=== PATIENT | male | born 1955 | race Caucasian/White ===

== ENCOUNTER 2019-05-28 12:35 | Outpatient (CLI) | payer MEDICARE, OTHER, SELFPAY ==
--- NOTE | ~2019-05-28 | XR_ITS ---
XR lumbar spine 2-3V DATE: 05/28/2019 13:07 INDICATION: Lumbar back pain and radiculopathy TECHNIQUE: AP, lateral, coned lateral lumbosacral views COMPARISON: 05/02/2017 lumbar spine FINDINGS: Mild rotatory dextroscoliosis. Diffuse osteopenia. No fracture or bone destruction is evident. The included lower thoracic and lumbar pedicles are intac t. There is fusion at L5-S1. There is moderate degenerative disc disease at L1-2, L3-4 and L4-5, with re latively sparing of L2-3. Degenerative spurring of the lower thoracic spine. The sacroiliac joints are intact. Fusiform infrarenal abdominal aortic aneurysm. IMPRESSION: Mild rotatory dextroscoliosis Diffuse osteopenia Multilevel degenerative disc disease Fusion at L5-S1 Fusiform infrarenal abdominal aortic aneurysm Reviewed, dictated and finalized at location B. 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
--- NOTE | ~2019-05-28 | XR_ITS ---
XR cervical spine 4-5V DATE: 05/28/2019 13:07 INDICATION: Neck pain and radiculopathy TECHNIQUE: AP, open-mouth, lateral and swimmer views COMPARISON: 05/02/2017 cervical spine FINDINGS: Cervical curvature is intact on the lateral view. There is mild levoscoliosis of the cervic al and upper thoracic spine. Normal alignment of the cervical spine. No fracture or dislocation or lo cked facet or prevertebral soft tissue swelling. C1 and C2 are normally aligned and the odontoid proc ess is intact. There is uncovertebral joint spurring and apophyseal joint spurring throughout the cervical spine. There is moderate degenerative disc disease at C3-4, C4-5, C5-6 and C6-7. Impressions: Degenerative changes, since 05/02/2017 Reviewed, dictated and finalized at location B. R SPECIAL AGENT Impressions: Degenerative changes, since 05/02/2017
== END 2019-05-28 12:36 | disposition home or self-care (01) ==
LOC: ANHIMG 12:39
PROVIDERS: PCP Internal Medicine; Visit Provider Pain Medicine Interventional Pain Medicine
DX: M47.26 Other spondylosis with radiculopathy, lumbar region (principal); M47.27 Other spondylosis with radiculopathy, lumbosacral region; G89.4 Chronic pain syndrome
CPT/HCPCS: 72050; 72100

== ENCOUNTER → 2020-06-02 15:51 | Outpatient (CLI) | payer MEDICARE, SELFPAY ==
--- NOTE | ~2020-06-02 | XR_ITS ---
XR_CERV2-3V_CR DATE: 06/02/2020 17:13 INDICATION: Cervical radiculopathy TECHNIQUE: Standing AP, open-mouth and lateral views, swimmer's view COMPARISON: 05/02/2017 cervical spine FINDINGS: Diffuse osteopenia. The cervical vertebrae are normally aligned. C1 and C2 are normally aligned and the odontoid process is intact. No fracture or dislocation or locked facet or prevertebral soft tissue swelling is detecte d. There is moderate loss of interspace height at C5-6 and C6-7, with associated spurring, consistent wi th moderate to moderately severe degenerative disc disease. Degenerative changes noted at the apophyseal joints. IMPRESSION: Cervical spondylosis Reviewed, dictated and finalized at Location A. Reviewed, dictated and finalized at location A. 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
--- NOTE | ~2020-06-02 | XR_ITS ---
XR lumbar spine 2-3V DATE: 06/02/2020 17:13 INDICATION: Lumbar radiculopathy TECHNIQUE: AP, lateral, coned lateral lumbosacral views COMPARISON: May 28, 2019 lumbar spine FINDINGS: There is diffuse osteopenia. There is prominent degenerative spurring in the lower thoracic spine. There is mild dextro scoliosis of the lumbar spine. There is moderate degenerative disc disease at L1-2. There is mild degenerative disc disease at L3-4 and L4-5. There is fusion at the L5-S1 intervertebral disc space. No recent fracture or bone destruction. The lumbar pedicles are intact. There is minimal retrolisthesis at L3-4 and L4-5. The sacroiliac joints are intact. Approximately 3.7 cm infrarenal abdominal aortic aneurysm IMPRESSION: Osteopenia Mild dextro scoliosis of the lumbar spine Multilevel degenerative disc disease Mild retrolisthesis at L3-4 and L4-5 Reviewed, dictated and finalized at location A. [employer]IAISON
== END ==
PROVIDERS: PCP Internal Medicine; Visit Provider Pain Medicine Interventional Pain Medicine
DX: M85.88 Other specified disorders of bone density and structure, other site (principal); M41.9 Scoliosis, unspecified; M51.36 Other intervertebral disc degeneration, lumbar region; M47.22 Other spondylosis with radiculopathy, cervical region
CPT/HCPCS: 72040; 72100

== ENCOUNTER 2020-06-17 08:54 | Outpatient (CLI) | payer MEDICARE, SELFPAY ==
[2020-06-17 09:26] LABS: Basophils Percent Auto 0.5 % (0.2-1.2); Eosinophils Absolute Auto 0.2 K/mm3 (0-0.3); Eosinophils Percent Auto 2.4 % (0-4.4); Hematocrit 45.6 % (42.0-52.0); Hemoglobin 15.9 g/dL (14.0-18.0); Immature Granulocyte Absolute 0.03 K/mm3 (0.00-0.031); Immature Granulocyte Percent A 0.4 % (0-0.5); Lymphocytes Percent Auto 26.3 % (18.3-44.2); Mean Corpuscular HGB Conc 34.9 g/dl (32-36); Mean Corpuscular Hemoglobin 31.1 pg (26-34); Mean Corpuscular Volume 89.1 fl (80-100); Mean Platelet Volume 10.5 fl (7.4-10.4); Monocytes Absolute Auto 0.7 K/mm3 (0.1-0.6); Monocytes Percent Auto 8.1 % (2.6-8.5); Neutrophils Percent Auto 62.3 % (45.5-73.1); Platelet Count Result 345 k/mm3 (150-375); Red Blood Count 5.12 M/mm3 (4.6-6.20); Red Cell Distribution Width 13.1 % (11.5-14.5)
[2020-06-17 10:01] LABS: Alanine Aminotransferase 16 U/L (4-50); Albumin Level 4.3 g/dL (3.5-5.1); Alkaline Phosphatase 76 U/L (38-126); Anion Gap 6 mmol/L (8-16); Aspartate Amino Transferase 24 U/L (17-59); Bilirubin,Total 0.6 mg/dL (0.2-1.3); Blood Urea Nitrogen 18 mg/dL (9-20); Carbon Dioxide 27 mmol/L (22-30); Chloride 101 mmol/L (98-107); Cholesterol 135 mg/dL (0-200); Estimated Glomerular Filt Rate > 60; Glucose 102 mg/dL (75-110); HDL Direct 36 mg/dL; Magnesium 1.8 mg/dL (1.6-2.3); Potassium 4.3 mmol/L (3.4-5.0); Sodium 134 mmol/L (137-145); Triglycerides 83 mg/dL (<150)
[2020-06-17 10:12] LABS: LDL Cholesterol Direct 82 mg/dL
[2020-06-17 10:38] LABS: Prostate Specific Antigen 1.8 ng/mL (< OR = 4.0)
== END 2020-06-17 08:55 | disposition home or self-care (01) ==
PROVIDERS: PCP Internal Medicine; Visit Provider Nurse Practitioner
DX: I10 Essential (primary) hypertension (principal); R00.2 Palpitations; Z12.5 Encounter for screening for malignant neoplasm of prostate
CPT/HCPCS: 36415; 80053; 80061; 83735; 84153; 85025; G0103

== ENCOUNTER 2020-07-15 13:23 | Outpatient (CLI) | payer MEDICARE, SELFPAY ==
--- NOTE | ~2020-07-15 | CT_ITS ---
EXAMINATION: CT lung screening EXAM DATE: 07/15/2020 14:10 INDICATION: Tobacco use. TECHNIQUE: Spiral low dose CT of the chest without contrast. Axial, coronal and sagittal images were reviewed. The dose-length product (DLP) for this examination was 238.18 mGy-cm. The exposure was t ailored according to patient size (auto mA exposure control), and iterative reconstruction (ASIR) was used as additional dose reduction technique. There is no prior study for comparison. FINDINGS: There is mild bronchiectasis. There is mild emphysema. There is a 5 mm left lower lobe nod ule on image 85. Tracheobronchial tree is patent. Some borderline size mediastinal lymph nodes pro bably reactive. There are no pleural or pericardial effusions. There is no pneumothorax. Heart n ormal in size. There is moderate coronary arterial calcification, arterial sclerosis. There are 2 g allstones within moderately distended gallbladder. There is a right adrenal gland adenoma measuring 1 .4 cm. Small sclerotic focus in T9 most likely bone island given no other sclerotic foci. IMPRESSION: Lung-RADS category 2, benign appearance or behavior (<1% chance of malignancy); recommend continued LDCT screening in 1 year. Reviewed, dictated and finalized at location A.
== END 2020-07-15 13:24 | disposition home or self-care (01) ==
PROVIDERS: PCP Internal Medicine; Visit Provider Nurse Practitioner
DX: Z12.2 Encounter for screening for malignant neoplasm of respiratory organs (principal); Z87.891 Personal history of nicotine dependence
CPT/HCPCS: 71271

== ENCOUNTER 2020-12-10 00:30 | Day surgery (SDC) | payer MEDICARE, SELFPAY ==
[2020-12-09 14:14] VITALS: BMI 33.0
[2020-12-10] VITALS (19 sets, daily range): BP systolic 114–149; BP diastolic 66–94; PULSE 65–84; RESP 15–24; TEMP 35.8–37.1; O2SAT 94–100; BMI 32.4
[2020-12-10 07:56] LABS: Basophils Percent Auto 0.5 % (0.2-1.2); Eosinophils Absolute Auto 0.2 K/mm3 (0-0.3); Eosinophils Percent Auto 2.2 % (0-4.4); Hematocrit 42.8 % (42.0-52.0); Hemoglobin 14.7 g/dL (14.0-18.0); Immature Granulocyte Absolute 0.03 K/mm3 (0.00-0.031); Immature Granulocyte Percent A 0.3 % (0-0.5); Lymphocytes Absolute Auto 2.07 K/mm3 (0.9-3.2); Lymphocytes Percent Auto 24.1 % (18.3-44.2); Mean Corpuscular HGB Conc 34.3 g/dl (32-36); Mean Corpuscular Hemoglobin 30.1 pg (26-34); Mean Corpuscular Volume 87.7 fl (80-100); Monocytes Absolute Auto 0.8 K/mm3 (0.1-0.6); Monocytes Percent Auto 8.7 % (2.6-8.5); Neutrophils Absolute Auto 5.5 K/mm3 (1.3-6.7); Neutrophils Percent Auto 64.2 % (45.5-73.1); Platelet Count Result 316 k/mm3 (150-375); Red Blood Count 4.88 M/mm3 (4.6-6.20); Red Cell Distribution Width 12.5 % (11.5-14.5); White Blood Count 8.6 K/mm3 (4.5-10.0)
--- NOTE | 2020-12-10 08:00 | WPDMODSED ---
Moderate Sedation Note-Pt Data Patient Data Allergies Allergy/AdvReac Type Severity Reaction Status Date / Time spironolactone AdvReac Hives Verified 11/03/20 14:16 Home Medications Medication Instructions Recorded Confirmed Type cyclobenzaprine 10 mg tablet 10 mg PO TID 07/15/19 12/09/20 History fluticasone propionate 50 2 spray NASAL DAILY 07/15/19 12/09/20 History mcg/actuation nasal spray,suspension gabapentin 300 mg capsule 300 mg PO TID 07/15/19 12/09/20 History hydrocodone 10 mg-acetaminophen 1 tablet PO TID PRN tablet 07/15/19 12/09/20 History 325 mg tablet ibuprofen 200 mg capsule 600 mg PO TID PRN cap 07/15/19 12/09/20 History lisinopril 30 mg tablet 30 mg PO DAILY #90 tablet 08/31/20 12/09/20 Rx carvedilol 3.125 mg tablet 6.25 mg PO Q12H tablet 11/03/20 12/09/20 History hydrochlorothiazide 25 mg PO DAILY 12/09/20 12/09/20 History Current Medications: Active Medications Sodium Chloride (Normal Saline Iv) 500 mls @ 100 mls/hr IV CONT .Q5H TESFAYE Sedation/Anesthesia: No previous sedation/anesthesia problems (including family history). [facility] Past Medical History Medical History Allergies Chronic back pain Erectile dysfunction Frozen shoulder Hypertension Surgical History Surgical History H/O shoulder surgery Left 05/2008 History of back surgery Multiple Family History Family History Father Malignant neoplasm of prostate Other Cerebrovascular accident Diabetes mellitus Family history of arthritis Family history of cardiovascular disease Family history of kidney disease Family history of malignant neoplasm Hypertension Social History Social History Smoking packs per day: 1 Smoking cigarettes per day: 20.0 Smoking status: Heavy tobacco smoker Tobacco type: cigarettes Alcohol intake: never Substance use: never Substance use type: does not use Living arrangements: with family Spiritual care concerns: No Mod Sed Physical Exam Physical Exam Pre Procedural Exam: Normal: Appearance, Eyes, Ears, Nose, Neck, Throat, Airway, Lungs, Heart Size, Heart Rate, Heart Rhythm, Neuro Exam, Abdomen, Liver, Kidneys, Spleen, Breasts, Genitalia, Extremities and Skin Hours since solid foods: 8 Hours since liquid intake: 8 Mallampati Classification: class II Internal Medicine - PN: Obj Da Vital Signs Vital Signs: Vital Signs - 24 hr 12/10/20 07:51 Temperature 36.2 C L Pulse Rate 84 Respiratory Rate 24 H Blood Pressure 130/94 H Pulse Oximetry 95 Meds/Results Medications: Active Medications Generic Name Dose Route Start Last Admin Trade Name Freq PRN Reason Stop Dose Admin Sodium Chloride 500 mls @ 100 mls/hr 12/09/20 14:25 Normal Saline Iv IV CONT .Q5H TESFAYE Labs CBC & Chem 7: 12/10/20 07:48 12/10/20 07:48 Labs: Laboratory Results - last 24 hr 12/10/20 12/10/20 07:48 07:48 WBC 8.6 RBC 4.88 Hgb 14.7 Hct 42.8 MCV 87.7 MCH 30.1 MCHC 34.3 RDW 12.5 Plt Count 316 MPV 10.0 Immature Gran % (Auto) 0.3 Neut % (Auto) 64.2 Lymph % (Auto) 24.1 Tucker % (Auto) 8.7 H Eos % (Auto) 2.2 Baso % (Auto) 0.5 Lymph # (Auto) 2.07 Tucker # (Auto) 0.8 H Eos # (Auto) 0.2 Baso # (Auto) 0.0 Abs Immat Gran (auto) 0.03 Absolute Neuts (auto) 5.5 Absolute Nucleated RBC 0.0 Nucleated RBC % 0.0 Sodium 139 Potassium 4.0 Chloride 102 Carbon Dioxide 24 Anion Gap 13 BUN 21 H Creatinine 0.90 Estim Creat Clear Calc 93 Estimated GFR > 60 Glucose 108 Calcium 9.3 ASA Classification/Sedation ASA Classification/Sedation ASA Class: I Emergent: No Risks: Risks, benefits and alternatives explained and patient/family accepted plan for sedation.
--- NOTE | 2020-12-10 08:00 | WPDHPUPDATE1 ---
History and Physical Update Update Date/Time: 12/10/20 0800 History and Physical has been reviewed, including an updated exam of the patient. There are NO changes in the patient's condition. Risks, benefits, and alternatives have been discussed and questions answered. Patient agrees to proceed with procedure.
[2020-12-10 08:41] LABS: Anion Gap 13 mmol/L (8-16); Blood Urea Nitrogen 21 mg/dL (9-20); Calcium 9.3 mg/dL (8.4-10.2); Carbon Dioxide 24 mmol/L (22-30); Chloride 102 mmol/L (98-107); Estimated CRCL calculation 93 ml/min; Estimated Glomerular Filt Rate > 60; Glucose 108 mg/dL (65-110); Sodium 139 mmol/L (137-145)
--- NOTE | 2020-12-10 09:32 | WPDCARDPROC ---
Cardiac Cath Procedure Note Date of procedure:: 12/10/20 Performing physician:: Acacia Reddy MD date of service December 10, 2020 Indication:: chest pain Brief clinical history:: this 65-year-old patient with history of hypertension, obesity, back pain was evaluated for recurrent episodes of chest pain and dyspnea on exertion. He underwent stress test that was negative for ischemia. He continues to smoke. He continues to have chest pain or shortness of breath on exertion. He is here to rule out CAD as possible etiology. Procedure Procedure performed:: 1-Moderate sedation that started at 9:31 am and ended at 1040 am with total duration 71 minutes using 2mg of Versed and 50mcg fentanyl. The registered nurse was Bret Dorsey. 2-Selective left and right coronary angiogram. 3-Left heart catheterization with measurement of LVEDP and measurement of gradient across aortic valve. 4- balloon angioplasty ostial and proximal diagonal branch. 5-Right common femoral arterial angiogram. 6-Deployment of 6 [place] Angio-Seal. Sedation/Medication given:: Moderate sedation. Access site:: Right common femoral artery. Estimated blood loss:: 10cc Procedure note:: After informed consent patient was brought in to boot and shoe laborer with the was draped and prepped in usual manner. Moderate sedation was given and the right groin was infiltrated using 1% lidocaine. Five [place] sheath was obtained using micropuncture needle and the modified Seldinger technique. Selective left coronary angiogram was done using JL4 catheter with the tip of the catheter placed in the left main coronary artery. Selective right coronary angiogram was done using JR4 catheter with the tip of the catheter placed to the right coronary artery. After that 5 [place] pigtail catheter was advanced across the aortic valve into the left ventricle with measurement of LVEDP and measurement of gradient across aortic valve. Right common femoral arterial angiogram was done. after that the right groin sheath was upgraded to 6 [place] sheath. We used CLS 4 to engage the left main. After that coronary luge wire was advanced to distal diagonal branch. Balloon angioplasty of the ostial and proximal diagonal branch using 2.75 x 15 balloon with 2 inflations, 1st patient the pressure for 5 seconds the 2nd inflation to 14 atmospheres for 5 seconds then after that we used 3.2 x 15 balloon with inflation to nominal pressure for 25 seconds. Right common artery Angio-Seal deployment Findings:: 1- left coronary artery is a large artery that divides into large LAD, large circumflex artery. Left main is has calcification no significant occlusion. 2- left anterior descending artery is a large artery that runs and wraps around the apex. Has diffuse calcification proximally. Minimal irregularities on the vessel. Medium to large diagonal branch has ostial approximately 90%. 3- left circumflex artery is a large artery and has minimal irregularites. 4- right coronary artery is large artery dominant and has minimalcalcification in proximal and mid segment. 5- LVEDP was 13 mm Hgand no gradient across aortic valve. 6- opening arterial pressure was 130/80 and closing pressure was 120/80 7- right femoral artery angiogram shows no significant disease in the right common femoral artery. Conclusion:: balloon angioplasty of ostial proximal diagonal branch use lesion% to 40-50%. JENNIFER flow 3 before and after intervention. I did not want to stent the diagonal because of fear of compromising the LAD. Assessment and Plan Additional Plan 1- continue aspirin and Brilinta. 2- start statin. 3- smoking cessation. 4- optimize antianginal medications.
--- NOTE | 2020-12-10 11:02 | ECG_ITS ---
Measurements Intervals [place] Rate: 68 P: 6 WV: 226 QRS: 52 QRSD: 97 T: 43 QT: 414 QTc: 440 Interpretive Statements SINUS RHYTHM WITH FIRST DEGREE AV BLOCK INCOMPLETE RIGHT BUNDLE BRANCH BLOCK ABNORMAL ECG Electronically Signed On 12-10-2020 11:57:09 CDT by Ross Delgado D.O.
[2020-12-10] MEDS: SODIUM CHLORIDE 0.9% IV 1,000 ML 125 ML IV CONT (11:08)
--- NOTE | 2020-12-10 12:15 | ADMGEN ---
This patient, Andre Han Jr., was admitted to [facility] EXTENDED RECOVERY AFTER OUTPATIENT C W/ PCI W/ DR. SOW. Patient/family oriented to hospital policies and general routines including ID bracelet, bed and alarms, visiting hours, pain management, procedures, bathroom and other care routines, personal items, smoking policy, room service/diet, and visiting hours. BEDREST POST PROCEDURE CONTINUES UNTIL 1240. R. GROIN SITE SOFT, NONTENDER. NO BLEEDING OR HEMATOMA NOTED. GAUZE AND TEGADERM DRESSING C/D/I. ANGIOSEAL CLOSURE TO PUNCTURE SITE. DENIES CP OR SOB. IVF'S RUNNING AT 125ML/HR ORDERED. Information on how to activate the Rapid Response Team has been discussed. Patient/Family are encouraged to report perceived risks to care and to ask questions if they do not understand what they are told or what they should do.
--- NOTE | 2020-12-10 12:27 | SUR.PHASEII ---
Patient transported via bed to [facility]. Report given to Janell RN at bedside. Groin and pedal pulse assessed by both RNs. Critical monitoring hookups applied. Patient updated on plan of care and verbalizes understanding.
[2020-12-10] MEDS: CYCLOBENZAPRINE HCL 10 MG TABLET PO ×2 (13:44→18:11)
[2020-12-10] MEDS: GABAPENTIN 300 MG CAPSULE PO ×2 (13:44→21:17)
[2020-12-10] MEDS: HYDROcodone/acetaminophen (*CRX) 10-325 MG TABLET 1 TAB PO (18:11)
[2020-12-10] MEDS: TICAGRELOR 90 MG TABLET PO (21:17)
[2020-12-10] MEDS: carvediloL 6.25 MG TABLET PO (21:17)
[2020-12-10] MEDS: IBUPROFEN 600 MG TABLET PO (22:52)
[2020-12-11] VITALS (7 sets, daily range): BP systolic 127–129; BP diastolic 78–81; PULSE 63–70; RESP 14–15; TEMP 36.6–36.7; O2SAT 97
[2020-12-11] MEDS: GABAPENTIN 300 MG CAPSULE PO (06:03)
[2020-12-11] MEDS: HYDROcodone/acetaminophen (*CRX) 10-325 MG TABLET 1 TAB PO (06:06)
[2020-12-11] MEDS: TICAGRELOR 90 MG TABLET PO (08:02)
[2020-12-11] MEDS: ASPIRIN 81 MG CHEWABLE TABLET PO (08:02)
[2020-12-11] MEDS: carvediloL 6.25 MG TABLET PO (08:02)
[2020-12-11] MEDS: ATORVASTATIN 40 MG TABLET PO (08:02)
[2020-12-11] MEDS: lisinopriL 10 MG TABLET 30 MG PO (08:02)
[2020-12-11] MEDS: FLUTICASONE PROPIONATE 0.05% NA SPR 16 GM BTL (*BKC) 2 SPRAY NASAL (08:03)
[2020-12-11] MEDS: CYCLOBENZAPRINE HCL 10 MG TABLET PO (08:03)
[2020-12-11] MEDS: hydroCHLOROthiazide 25 MG TABLET PO (08:03)
--- NOTE | 2020-12-11 08:37 | PM.PNCARD ---
Progress Note: A&P Assessment and Plan (1) CAD (coronary artery disease): Code(s): I25.10 - Atherosclerotic heart disease of [place] coronary artery without angina pectoris Status: Acute Assessment and Plan: 90% stenosis large diagonal branch status post balloon angioplasty without complication. Observed overnight no new issues. Discharge home today in stable and improved condition. Follow-up with Dr. Bradley as scheduled. Post catheterization precautions reviewed. Absolute compliance with dual antiplatelet therapy with aspirin and Brilinta. Monitor for bleeding. All questions answered. (2) Hypertension: Qualifiers: Hypertension type: essential hypertension Qualified Code(s): I10 - Essential (primary) hypertension Code(s): I10 - Essential (primary) hypertension Status: Acute Assessment and Plan: BP fair control. Continue current medical therapy. (3) Dyslipidemia: Code(s): E78.5 - Hyperlipidemia, unspecified Status: Acute Assessment and Plan: Continue atorvastatin 40 mg at bedtime goal LDL less than 70 (4) Tobacco abuse: Code(s): Z72.0 - Tobacco use Status: Acute Assessment and Plan: Smoking cessation counseling Subjective Date/time seen: Date of service: 12/11/20 08:37 Follow-up status post balloon angioplasty to diagonal branch. Doing well, no complaints. No chest pain, shortness of breath. Minimal soreness at right groin no fevers or chills. No issues overnight. Had some restless legs overnight now resolved. Chronic back pain no change. Patient hopeful to go home today. Review of Systems Review of Systems: All systems reviewed & are unremarkable except as noted in HPI and below Constitutional: Constitutional: Reports as per HPI and Reports no additional constitutional complaints Eyes: Eyes: Reports as per HPI and Reports no additional eye complaints ENT: Reports system reviewed and no additional complaints, except as documented and Reports as per HPI Cardiovascular: Cardiovascular: Reports as per HPI and Reports no additional cardiovascular complaints Respiratory: Respiratory: Reports as per HPI and Reports no additional respiratory complaints Gastrointestinal: Gastrointestinal: Reports as per HPI and Reports no additional gastrointestinal complaints Genitourinary: Genitourinary: Reports no additional male genitourinary complaints and Reports as per HPI Musculoskeletal: Musculoskeletal: Reports no additional musculoskeletal complaints and Reports as per HPI Integumentary/Breasts: Skin/Breast: Reports system reviewed and no additional complaints, except as docu and Reports as per HPI Neurologic: Reports system reviewed and no additional complaints, except as documented and Reports as per HPI Psychiatric: Psychiatric: Reports no additional psychiatric complaints and Reports as per HPI Endocrine: Endocrine: Reports no additional endocrine complaints and Reports as per HPI Hematologic/Lymphatic: Hematologic/Lymphatic: Reports no additional hematologic/lymphatic complaints and Reports as per HPI Allergic/Immunologic: Allergic/Immunologic: Reports no additional allergic/immunologic complaints and Reports as per HPI Exam Narrative: General: Well developed, alert and oriented x3. No apparent distress, comfortable, pleasant, and cooperative. Head: atraumatic, normocephalic Eyes: EOM intact, sclerae anicteric, conjunctivae unremarkable Ears/Nose: external inspection of ears and nose were grossly normal Mouth/Throat: oral mucosa pink and moist Neck: supple, normal range of motion, no jugular venous distention or carotid bruits, thyroid nonpalpable, trachea midline. Cardiac: Regular rate and rhythm, normal S1-S2, no murmurs, clicks, gallops, or rubs. Lungs: Clear to auscultation bilaterally, no rales, wheezes, or rhonchi. Abdomen: Soft, nontender, nondistended, positive bowel sounds throughout. No
--- NOTE | 2020-12-11 08:55 | PM.DS ---
DS: Admitting Diagnosis Admitting Diagnosis Unstable angina Hypertension Tobacco abuse DS: Discharge Diagnosis Discharge Diagnosis (1) CAD (coronary artery disease): Code(s): I25.10 - Atherosclerotic heart disease of [place] coronary artery without angina pectoris Status: Acute Assessment and Plan: 90% stenosis large diagonal branch status post balloon angioplasty without complication. Observed overnight no new issues. Discharge home today in stable and improved condition. Follow-up with Dr. Bradley as scheduled. Post catheterization precautions reviewed. Absolute compliance with dual antiplatelet therapy with aspirin and Brilinta. Monitor for bleeding. All questions answered. (2) Dyslipidemia: Code(s): E78.5 - Hyperlipidemia, unspecified Status: Acute Assessment and Plan: Continue atorvastatin 40 mg at bedtime goal LDL less than 70 (3) Tobacco abuse: Code(s): Z72.0 - Tobacco use Status: Acute Assessment and Plan: Smoking cessation counseling (4) Hypertension: Qualifiers: Hypertension type: essential hypertension Qualified Code(s): I10 - Essential (primary) hypertension Code(s): I10 - Essential (primary) hypertension Status: Acute Assessment and Plan: BP fair control. Continue current medical therapy. DS: Summary Hospital Course Reason for hospitalization: Progressive angina Hospital Course: Patient admitted as an outpatient for coronary angiography due to progressive chest pain, shortness of breath occurring with minimal activity. Coronary angiography revealed 90% large diagonal branch ostial/proximal stenosis for which he underwent balloon angioplasty. Stent implantation felt to be suboptimal due to location in risk for compromise of LAD circulation. Patient did well. He was observed overnight without complication. Counseled on post catheterization precautions including the importance of absolute compliance with medications, smoking cessation, follow-up and recommendations. Patient verbalized understanding. Patient was discharged home in stable and improved condition follow-up as scheduled. Time spent discussing smoking cessation with patient: 3 to 10 minutes Status at Discharge Cognitive/behavioral status at discharge: Competent Overall status at discharge: patient is back to baseline Time Spent with Patient Time attestation: Total time spent providing and/or coordinating discharge services: 32 minutes Time spent: Greater than 30 minutes Exam Narrative: General: Well developed, alert and oriented x3. No apparent distress, comfortable, pleasant, and cooperative. Head: atraumatic, normocephalic Eyes: EOM intact, sclerae anicteric, conjunctivae unremarkable Ears/Nose: external inspection of ears and nose were grossly normal Mouth/Throat: oral mucosa pink and moist Neck: supple, normal range of motion, no jugular venous distention or carotid bruits, thyroid nonpalpable, trachea midline. Cardiac: Regular rate and rhythm, normal S1-S2, no murmurs, clicks, gallops, or rubs. Lungs: Clear to auscultation bilaterally, no rales, wheezes, or rhonchi. Abdomen: Soft, nontender, nondistended, positive bowel sounds throughout. No appreciable hepatosplenomegaly, no rebound guarding or rigidity noted. Abdominal aorta nonpalpable, no appreciable bruits. Extremities: No edema, clubbing, and or cyanosis. Extremities warm and well perfused. Right groin exercise soft, no hematoma/bleeding, bruit. 2+ femoral pulses and dorsalis pedis pulse. Skin: Warm and dry without ecchymoses, rashes, and/or petechiae. Musculoskeletal: Muscle strength and tone intact throughout without obvious deformities. Vascular: Carotid upstrokes 2+ bilaterally, radial pulses 2+ bilaterally, dorsalis pedis pulses 2+ bilaterally, posterior tibialis pulses palpable bilaterally. Neurologic: Cranial nerves 2-12 grossly intact, examination
[2020-12-11] MEDS: IBUPROFEN 600 MG TABLET PO (09:00)
== END 2020-12-11 09:51 | disposition home or self-care (01) ==
LOC: ANHCATHLAB 07:31 → ANHCPC 12:42
PROVIDERS: PCP Internal Medicine; Visit Provider Internal Medicine Cardiovascular Disease
PROC: 4A023N7 Measurement of Cardiac Sampling and Pressure, Left Heart, Percutaneous Approach (ICD-10-PCS; CPT 93452; principal; 2020-12-10 09:00)
PROC: (CPT 92920; 2020-12-10 09:00)
DX: I25.10 Atherosclerotic heart disease of native coronary artery without angina pectoris (principal); R07.9 Chest pain, unspecified; R06.02 Shortness of breath; I10 Essential (primary) hypertension; E78.5 Hyperlipidemia, unspecified; M54.9 Dorsalgia, unspecified; G89.29 Other chronic pain; Z79.891 Long term (current) use of opiate analgesic; F17.210 Nicotine dependence, cigarettes, uncomplicated; Z79.82 Long term (current) use of aspirin; Z79.01 Long term (current) use of anticoagulants
CPT/HCPCS: 36415; 80048; 85025; 92920; 93458; A9270; C1725; C1760; C1769; C1887; C1894; G0269; J0583; J1644; J2250; J3010; J7030; J7040

== ENCOUNTER 2021-07-26 09:44 | Outpatient (CLI) | payer MEDICARE, SELFPAY ==
[2021-07-26 10:25] LABS: Basophils Absolute Auto 0.1 K/mm3 (0.0-0.1); Basophils Percent Auto 0.7 % (0.2-1.2); Eosinophils Absolute Auto 0.2 K/mm3 (0-0.3); Eosinophils Percent Auto 2.7 % (0-4.4); Hematocrit 44.2 % (42.0-52.0); Hemoglobin 15.1 g/dL (14.0-18.0); Immature Granulocyte Absolute 0.03 K/mm3 (0.00-0.031); Immature Granulocyte Percent A 0.4 % (0-0.5); Lymphocytes Absolute Auto 2.16 K/mm3 (0.9-3.2); Lymphocytes Percent Auto 25.5 % (18.3-44.2); Mean Corpuscular HGB Conc 34.2 g/dl (32-36); Mean Corpuscular Hemoglobin 30.8 pg (26-34); Mean Platelet Volume 10.3 fl (7.4-10.4); Monocytes Absolute Auto 0.7 K/mm3 (0.1-0.6); Monocytes Percent Auto 8.4 % (2.6-8.5); Neutrophils Absolute Auto 5.3 K/mm3 (1.3-6.7); Neutrophils Percent Auto 62.3 % (45.5-73.1); Platelet Count Result 375 k/mm3 (150-375); Red Blood Count 4.91 M/mm3 (4.6-6.20); Red Cell Distribution Width 13.5 % (11.5-14.5); White Blood Count 8.5 K/mm3 (4.5-10.0)
[2021-07-26 10:30] LABS: Alanine Aminotransferase 16 U/L (4-50); Albumin Level 4.3 g/dL (3.5-5.1); Alkaline Phosphatase 67 U/L (38-126); Anion Gap 7 mmol/L (8-16); Aspartate Amino Transferase 24 U/L (17-59); Bilirubin,Total 0.5 mg/dL (0.2-1.3); Blood Urea Nitrogen 17 mg/dL (9-20); Carbon Dioxide 29 mmol/L (22-30); Chloride 101 mmol/L (98-107); Cholesterol 87 mg/dL (0-200); Estimated Glomerular Filt Rate > 60; Glucose 112 mg/dL (65-110); HDL Direct 31 mg/dL; Potassium 3.9 mmol/L (3.4-5.0); Sodium 137 mmol/L (137-145); Triglycerides 141 mg/dL (<150)
[2021-07-26 10:41] LABS: LDL Cholesterol Direct 36 mg/dL
[2021-07-26 10:59] LABS: Prostate Specific Antigen 1.4 ng/mL (< OR = 4.0)
== END 2021-07-26 09:45 | disposition home or self-care (01) ==
LOC: ANHLAB 09:46
PROVIDERS: PCP Internal Medicine; Visit Provider Internal Medicine
DX: I25.10 Atherosclerotic heart disease of native coronary artery without angina pectoris (principal); I10 Essential (primary) hypertension; Z12.5 Encounter for screening for malignant neoplasm of prostate; E78.5 Hyperlipidemia, unspecified
CPT/HCPCS: 36415; 80053; 80061; 84153; 85025; G0103

== ENCOUNTER 2021-10-26 11:41 | Outpatient (CLI) | payer MEDICARE, SELFPAY ==
--- NOTE | ~2021-10-26 | XR_ITS ---
EXAM: XR cervical spine 4-5V DATE: 10/26/2021 12:20 HISTORY: LUMBOSACRAL REGION, CERVICAL REGION, RADICULOPATHY . COMPARISON: None available. FINDINGS: Decreased mineralization. Craniocervical association and atlantoaxial joint are aligned, wi th moderate degenerative change. No prevertebral soft tissue swelling. Vertebral bodies are aligned. Vertebral body heights are preserved. Multilevel degenerative disc narrowing and osteophytosis. Multi level uncovertebral joint and facet sclerosis and hypertrophy. Normal facets and posterior elements. IMPRESSION: Multilevel degenerative disc and uncovertebral joint change. Multilevel moderate facet ar thropathy. Reviewed, dictated and finalized at location K. IMPRESSION: Multilevel degenerative disc and uncovertebral joint change. Multil evel moderate facet arthropathy.
--- NOTE | ~2021-10-26 | XR_ITS ---
XR lumbar spine 2-3V DATE: 10/26/2021 12:20 INDICATION: Lumbosacral radiculopathy TECHNIQUE: AP, lateral, coned lateral lumbosacral views COMPARISON: 09/27/2008 MRI lumbar spine 06/02/2020 lumbar spine FINDINGS: There is osteopenia. Persistent mild lumbar dextroscoliosis. Chronic minimal concavity of superior vertebral endplate of L3. Status post surgical fusion at L5-S1 interspace. Prominent degenerative disc disease and spurring at T11-12, T12-L1 and L1-2. Mild degenerative disc disease and mild retrolisthesis at L3-4. Mild degenerative disc disease and mild retrolisthesis at L4-5. No interval fracture or bone destruction is noted since 06/02/2020. The lumbar pedicles are intact. Previous fusiform infrarenal abdominal aortic aneurysm measuring up to approximately 3.7 cm AP dimens ion on 06/02/2020, currently measuring up to approximately 4.4 cm. IMPRESSION: Increased size of fusiform infrarenal abdominal aortic aneurysm since 06/02/2020; this may measure up to approximately 4.4 cm maximal AP dimension The following findings are relatively stable since 06/02/2020: Osteopenia Mild dextroscoliosis Intervertebral disc fusion at L5-S1, chronic Chronic prominent degenerative change in the lower thoracic and upper lumbar spine and mild degenerat cortez disc disease and mild retrolisthesis at L3-4 and L4-5 Reviewed, dictated and finalized at location B. IMPRESSION: Increased size of fusiform infrarenal abdominal aortic aneurysm sin ce 06/02/2020; this may measure up to approximately 4.4 cm maximal AP dimension The following findings are relatively stable since 06/02/2020: Osteopenia Mild dextroscoliosis Intervertebral disc fusion at L5-S1, chronic Chronic prominent degenerative change in the lower thoracic and upper lumbar sp ine and mild degenerative disc disease and mild retrolisthesis at L3-4 and L4-5
== END 2021-10-26 11:42 | disposition home or self-care (01) ==
LOC: ANHIMG 11:48
PROVIDERS: PCP Internal Medicine; Visit Provider Pain Medicine Interventional Pain Medicine
DX: M41.9 Scoliosis, unspecified (principal); M47.25 Other spondylosis with radiculopathy, thoracolumbar region; Z98.1 Arthrodesis status
CPT/HCPCS: 72050; 72100

== ENCOUNTER 2021-11-24 07:44 | Outpatient (CLI) | payer MEDICARE, SELFPAY ==
--- NOTE | ~2021-11-24 | US_ITS ---
EXAMINATION: US aorta DATE: 11/24/2021 08:53 CDT INDICATION: Abdominal aortic aneurysm TECHNIQUE: Grayscale, color Doppler, and pulsed Doppler images of the aorta and common iliac arteries were obtained. COMPARISON: No prior studies for comparison. . FINDINGS: The proximal aorta measures 2.8 cm greatest sagittal dimension. The mid aorta measures 2.5 cm greates t sagittal dimension. The distal aorta measures 3.8 cm greatest sagittal dimension. The right common internal iliac artery measures 1.6 cm. The left common iliac artery measures 1.6 cm. IMPRESSION: 1. Infrarenal abdominal aortic aneurysm measuring 3.8 cm. Reviewed, dictated and finalized at location B.
== END 2021-11-24 07:45 | disposition home or self-care (01) ==
LOC: ANHIMG 07:46
PROVIDERS: PCP Internal Medicine; Visit Provider Nurse Practitioner
DX: I71.4 Abdominal aortic aneurysm, without rupture (principal)
CPT/HCPCS: 76775

== ENCOUNTER 2022-02-07 10:18 | Outpatient (CLI) | payer MEDICARE, SELFPAY ==
[2022-02-07 18:57] LABS: Hematocrit 44.4 % (42.0-52.0); Hemoglobin 14.3 g/dL (14.0-18.0); Mean Corpuscular HGB Conc 32.2 g/dl (32-36); Mean Corpuscular Hemoglobin 31.1 pg (26-34); Mean Corpuscular Volume 96.5 fl (80-100); Mean Platelet Volume 10.5 fl (7.4-10.4); Platelet Count Result 355 k/mm3 (150-375); Red Cell Distribution Width 13.3 % (11.5-14.5); White Blood Count 10.2 K/mm3 (4.5-10.0)
[2022-02-07 19:16] LABS: Alanine Aminotransferase 16 U/L (6-50); Albumin Level 4.1 g/dL (3.5-5.1); Alkaline Phosphatase 57 U/L (38-126); Anion Gap 14 mmol/L (8-16); Aspartate Amino Transferase 19 U/L (17-59); Bilirubin,Total 0.6 mg/dL (0.2-1.3); Blood Urea Nitrogen 13 mg/dL (9-20); Carbon Dioxide 27 mmol/L (22-30); Chloride 102 mmol/L (98-107); Estimated Glomerular Filt Rate > 60; Glucose 90 mg/dL (65-110); Potassium 4.5 mmol/L (3.4-5.0); Sodium 143 mmol/L (137-145)
== END 2022-02-07 10:19 | disposition home or self-care (01) ==
LOC: ANHGOSHLAB 10:21
PROVIDERS: PCP Internal Medicine; Visit Provider Internal Medicine
DX: I10 Essential (primary) hypertension (principal); I25.10 Atherosclerotic heart disease of native coronary artery without angina pectoris
CPT/HCPCS: 36415; 80053; 85027

== ENCOUNTER 2022-03-09 14:14 | Outpatient (CLI) | payer MEDICARE, SELFPAY | END 2022-03-09 14:15 | disposition home or self-care (01) | LOC: ANHAUDASC 14:18 | PROVIDERS: PCP Internal Medicine; Visit Provider Clinical Nurse Specialist | DX: H90.6 Mixed conductive and sensorineural hearing loss, bilateral (principal) | CPT/HCPCS: 92557; 92567 ==

== ENCOUNTER 2022-10-03 09:06 | Outpatient (CLI) | payer MEDICARE, SELFPAY ==
[2022-10-03 15:56] LABS: Basophils Absolute Auto 0.1 K/mm3 (0.0-0.1); Basophils Percent Auto 0.5 % (0.2-1.2); Eosinophils Absolute Auto 0.2 K/mm3 (0-0.3); Eosinophils Percent Auto 1.5 % (0-4.4); Hematocrit 45.3 % (42.0-52.0); Hemoglobin 14.9 g/dL (14.0-18.0); Immature Granulocyte Absolute 0.04 K/mm3 (0.00-0.031); Immature Granulocyte Percent A 0.4 % (0-0.5); Lymphocytes Absolute Auto 2.26 K/mm3 (0.9-3.2); Lymphocytes Percent Auto 22.8 % (18.3-44.2); Mean Corpuscular HGB Conc 32.9 g/dl (32-36); Mean Corpuscular Hemoglobin 30.8 pg (26-34); Mean Corpuscular Volume 93.8 fl (80-100); Mean Platelet Volume 10.4 fl (7.4-10.4); Monocytes Absolute Auto 0.8 K/mm3 (0.1-0.6); Monocytes Percent Auto 8.1 % (2.6-8.5); Neutrophils Absolute Auto 6.6 K/mm3 (1.3-6.7); Neutrophils Percent Auto 66.7 % (45.5-73.1); Platelet Count Result 307 k/mm3 (150-375); Red Blood Count 4.83 M/mm3 (4.6-6.20); Red Cell Distribution Width 13.9 % (11.5-14.5); White Blood Count 9.9 K/mm3 (4.5-10.0)
[2022-10-03 18:25] LABS: Alanine Aminotransferase 21 U/L (6-50); Alkaline Phosphatase 64 U/L (38-126); Anion Gap 5 mmol/L (8-16); Aspartate Amino Transferase 74 U/L (17-59); Bilirubin,Total 0.9 mg/dL (0.2-1.3); Blood Urea Nitrogen 17 mg/dL (9-20); Calcium 8.8 mg/dL (8.4-10.2); Carbon Dioxide 25 mmol/L (22-30); Chloride 105 mmol/L (98-107); Cholesterol 86 mg/dL (0-200); Estimated Glomerular Filt Rate > 60; Glucose 90 mg/dL (65-110); HDL Direct 36 mg/dL; Potassium 4.1 mmol/L (3.4-5.0); Sodium 135 mmol/L (137-145); Triglycerides 98 mg/dL (<150)
[2022-10-03 18:37] LABS: LDL Cholesterol Direct 34 mg/dL
[2022-10-03 18:47] LABS: Prostate Specific Antigen 1.6 ng/mL (< OR = 4.0)
== END 2022-10-03 09:07 | disposition home or self-care (01) ==
LOC: ANHGOSHLAB 09:07
PROVIDERS: PCP Internal Medicine; Visit Provider Nurse Practitioner
DX: I25.10 Atherosclerotic heart disease of native coronary artery without angina pectoris (principal); Z12.5 Encounter for screening for malignant neoplasm of prostate
CPT/HCPCS: 36415; 80053; 80061; 84153; 85025; G0103

== ENCOUNTER 2022-10-04 08:12 | Outpatient (CLI) | payer MEDICARE, SELFPAY ==
--- NOTE | ~2022-10-04 | US_ITS ---
Ultrasound of the Abdominal Aorta INDICATION: Abdominal aortic aneurysm TECHNIQUE: Grayscale, color Doppler, and pulsed Doppler images of the aorta and common iliac arteries were obtained. COMPARISON: 11/24/2021 FINDINGS: Maximum vascular dimensions are as follows: Proximal aorta: 3.0 cm Mid aorta: 2.4 cm Distal aorta: 3.4 cm Right common iliac artery: 1.5 cm Left common iliac artery: 1.3 cm There is a distal infrarenal abdominal aortic aneurysm measuring 3.4 cm in maximum diameter. IMPRESSION: 3.4 cm distal infrarenal abdominal aortic aneurysm. Reviewed, dictated and finalized at location .
== END 2022-10-04 08:13 | disposition home or self-care (01) ==
LOC: ANHIMG 08:15
PROVIDERS: PCP Internal Medicine; Visit Provider Internal Medicine Cardiovascular Disease
DX: I71.43 Infrarenal abdominal aortic aneurysm, without rupture (principal)
CPT/HCPCS: 76775

== ENCOUNTER 2022-10-20 07:52 | Outpatient (CLI) | payer MEDICARE, SELFPAY | END 2022-10-20 07:53 | disposition home or self-care (01) | LOC: ANHAUDIO 07:52 | PROVIDERS: PCP Internal Medicine; Visit Provider Clinical Nurse Specialist | DX: H90.6 Mixed conductive and sensorineural hearing loss, bilateral (principal) | CPT/HCPCS: 92557; 92567 ==

== ENCOUNTER 2022-11-30 09:09 | Outpatient (CLI) | payer MEDICARE, SELFPAY ==
--- NOTE | ~2022-11-30 | XR_ITS ---
XR lumbar spine 2-3V DATE: 11/30/2022 11:52 INDICATION: Lumbar radiculopathy TECHNIQUE: AP, lateral, coned lateral lumbosacral views COMPARISON: 10/26/2021 lumbar spine FINDINGS: There is minimal dextroscoliosis of the lumbar spine. There is osteopenia. There is multilevel degenerative disc disease of the lower thoracic and lumbar spine, moderate at L1- 2, L3-4, L4-5, mild at L2-3. There is fusion at the L5-S1 disc space. There is associated mild retrolisthesis at L3-4 and L4-5. The included lower thoracic and lumbar pedicles appear intact. The sacroiliac joints are intact. Fusiform infrarenal abdominal aortic calcified aneurysm is again noted.. IMPRESSION: Little interval change since 02/26/2022 Reviewed, dictated and finalized at location A.
--- NOTE | ~2022-11-30 | CT_ITS ---
EXAMINATION: CT lung screening DATE: 11/30/2022 09:38 INDICATION: Personal history of nicotine dependence TECHNIQUE: Computed tomography (CT) of the chest was performed without intravenous contrast. The dose -length product was 388.00 mGy-cm.. Automated exposure control and iterative reconstruction technique were employed. COMPARISON: 07/15/2020 FINDINGS: Stable 5 mm left lower lobe nodule, image 93. There is stable chronic interstitial lung dis ease peripherally. There is lingular atelectasis. No endobronchial lesions. There is bronchiectasis o f the right upper lobe. There is focal consolidation in the left upper lobe measuring 3.9 x 1.3 cm wh ich is new compared with prior examination. This may represent infectious/inflammatory etiologies and /or atelectasis, although malignancy is not excluded. There are gallstones. IMPRESSION: 1. Lung Rads category 4B (varies suspicious, greater than 15% chance of malignancy): Recommend follow -up one month ago CT for new potentially infectious/inflammatory mass in the left upper lobe. Alterna tively, further evaluation with percutaneous biopsy or pet/CT scan may better performed. Reviewed, dictated and finalized at location B. IMPRESSION: 1. Lung Rads category 4B (varies suspicious, greater than 15% chance of maligna ncy): Recommend follow-up one month ago CT for new potentially infectious/infla mmatory mass in the left upper lobe. Alternatively, further evaluation with per cutaneous biopsy or pet/CT scan may better performed.
--- NOTE | ~2022-11-30 | XR_ITS ---
EXAMINATION:XR_CERV2-3V_CR DATE: 11/30/2022 11:52 INDICATION: Neck pain TECHNIQUE: AP, lateral, and lateral swimmers views of the cervical spine are provided. COMPARISON: 10/26/2021 FINDINGS: Alignment is normal. The odontoid process is intact. No fracture is identified. The vertebr al body heights are normal. There is mild loss of intervertebral disc space height at C5-C6, C6-7, an d C7-T1. There is multilevel severe facet and uncovertebral joint osteoarthritis. Prevertebral soft t issues are normal. IMPRESSION: 1. Moderate cervical spondylosis without acute findings or significant interval change. Reviewed, dictated and finalized at location A.
== END 2022-11-30 09:10 | disposition home or self-care (01) ==
PROVIDERS: PCP Internal Medicine; Visit Provider Clinical Nurse Specialist
DX: Z12.2 Encounter for screening for malignant neoplasm of respiratory organs (principal); R91.8 Other nonspecific abnormal finding of lung field; M43.02 Spondylolysis, cervical region; Z87.891 Personal history of nicotine dependence
CPT/HCPCS: 71271; 72040; 72100

== ENCOUNTER 2022-12-23 14:17 | Outpatient (CLI) | payer MEDICARE, SELFPAY ==
[2022-12-23 15:08] LABS: Influenza A QL RT-PCR Negative (Negative); Influenza B QL RT-PCR Negative (Negative); RSV RNA, RT-PCR Negative (Negative); SARS-CoV-2 RNA PCR Negative (Negative)
== END 2022-12-23 14:18 | disposition home or self-care (01) ==
PROVIDERS: PCP Internal Medicine; Visit Provider Clinical Nurse Specialist
DX: Z20.828 Contact with and (suspected) exposure to other viral communicable diseases (principal); Z20.822 Contact with and (suspected) exposure to COVID-19
CPT/HCPCS: 87637

== ENCOUNTER 2022-12-27 09:15 | Outpatient (CLI) | payer MEDICARE, SELFPAY ==
--- NOTE | ~2022-12-27 | CT_ITS ---
Clinical Indication: Abnormal findings on diagnostic imaging CT Scan of the Chest with Contrast: Technique: Contiguous sections were acquired throughout the chest after intravenous administration of 75 cc of Omnipaque 350. Dose reduction technique was used on this scan by utilizing automated exposu re control and iterative reconstruction technique. The dose-length product (DLP) was 583.50 mGy-cm. COMPARISON: 11/30/2022 Findings: There is no evidence of any significant mediastinal, hilar or axillary lymphadenopathy. There is no f illing defect in the pulmonary arterial tree to suggest pulmonary embolus. There is no evidence of ao rtic dissection or aneurysm. There is no evidence of pleural or pericardial effusion. Chronic interstitial disease, particularly in the right upper lobe, similar to prior exam. Stable 5 m m left basilar pulmonary nodule. Stable scarring at the lingula. Previously noted consolidation at th e left upper lobe is improved. Images through the upper abdomen reveal calcified gallstone. Impression: Interval improvement of previously noted area of consolidation the left upper lobe, consistent with i mproving pneumonia or atelectasis. Additional chronic pulmonary findings, unchanged from prior exam, as detailed above. Cholelithiasis. Reviewed, dictated and finalized at location M. Impression: Interval improvement of previously noted area of consolidation the left upper l obe, consistent with improving pneumonia or atelectasis. Additional chronic pulmonary findings, unchanged from prior exam, as detailed quincy garcia. Cholelithiasis.
[2022-12-27 09:35] LABS: Estimated Glomerular Filt Rate > 60
== END 2022-12-27 09:16 | disposition home or self-care (01) ==
PROVIDERS: PCP Internal Medicine; Visit Provider Clinical Nurse Specialist
DX: R93.89 Abnormal findings on diagnostic imaging of other specified body structures (principal); K80.20 Calculus of gallbladder without cholecystitis without obstruction; J18.1 Lobar pneumonia, unspecified organism
CPT/HCPCS: 71260; Q9967

== ENCOUNTER 2023-03-24 14:52 | Outpatient (CLI) | payer MEDICARE, SELFPAY ==
[2023-03-24 15:32] LABS: Basophils Absolute Auto 0.1 K/mm3 (0.0-0.1); Basophils Percent Auto 0.5 % (0.2-1.2); Eosinophils Absolute Auto 0.2 K/mm3 (0-0.3); Eosinophils Percent Auto 1.7 % (0-4.4); Hemoglobin 15.6 g/dL (14.0-18.0); Immature Granulocyte Absolute 0.03 K/mm3 (0.00-0.031); Immature Granulocyte Percent A 0.3 % (0-0.5); Lymphocytes Absolute Auto 2.48 K/mm3 (0.9-3.2); Lymphocytes Percent Auto 24.1 % (18.3-44.2); Mean Corpuscular HGB Conc 33.9 g/dl (32-36); Mean Corpuscular Hemoglobin 31.5 pg (26-34); Mean Corpuscular Volume 92.7 fl (80-100); Mean Platelet Volume 10.2 fl (7.4-10.4); Monocytes Absolute Auto 0.8 K/mm3 (0.1-0.6); Monocytes Percent Auto 8.1 % (2.6-8.5); Neutrophils Absolute Auto 6.7 K/mm3 (1.3-6.7); Neutrophils Percent Auto 65.3 % (45.5-73.1); Platelet Count Result 337 k/mm3 (150-375); Red Blood Count 4.96 M/mm3 (4.6-6.20); Red Cell Distribution Width 13.5 % (11.5-14.5); White Blood Count 10.3 K/mm3 (4.5-10.0)
[2023-03-24 15:47] LABS: Rheumatoid Factor < 12.0 IU/ML (<12)
[2023-03-24 15:48] LABS: CRP 0.7 mg/dL (<1.0); Creatine Kinase 54 U/L (55-170)
[2023-03-24 15:59] LABS: Erythrocyte Sedimentation Rate 7 mm/hr (0-20)
[2023-03-28 11:55] LABS: Anti Cyclic Citrullinated Pept <16 Units (<20)
[2023-03-28 12:38] LABS: Aldolase 4.2 U/L (<=8.1)
[2023-03-28 23:18] LABS: ANCA Screen Negative (Negative)
[2023-03-29 16:51] LABS: ANA Cascade Screen Negative (Negative)
== END 2023-03-24 14:53 | disposition home or self-care (01) ==
PROVIDERS: PCP Internal Medicine; Visit Provider Internal Medicine Pulmonary Disease
DX: J84.9 Interstitial pulmonary disease, unspecified (principal)
CPT/HCPCS: 36415; 82085; 82550; 85025; 85652; 86036; 86038; 86140; 86200; 86225; 86235; 86331; 86364; 86430; 86606; 86609

== ENCOUNTER 2023-04-13 08:22 | Outpatient (CLI) | payer MEDICARE, SELFPAY ==
[2023-04-13 09:16] LABS: Alveolar/Arterial O2 Gradient 29.2 mmHg; Base Excess ABG -5.3 mEq/l (+/-2.0); Carboxyhemoglobin 6.5 % THb (0-2.0); Fractional Inspired Oxygen 21 %; HCO3 ABG 17.8 mEq/l (22.0-26.0); Methemoglobin ABG 0.3 %THb (0-1.5); Oxygen Saturation ABG 96.7 % (95.0-100.0); PCO2 ABG 28.8 mmHg (35.0-45.0); Reduced Hemoglobin 3.2 %THb (0-5.0); pH ABG 7.409 (7.350-7.450)
[2023-04-13 09:18] LABS: Device ROOM AIR; Modified Allen's Test Pass; Site Drawn RIGHT BRACHIAL
--- NOTE | 2023-04-13 12:54 | WPDPFTINT ---
PFT Procedure Performed PFT Procedure Performed Spirometry with Pre/Post Bronchodilator Plethysmography (Lung Vol) Diffusing Cap (DLCO) Flow Vol Loop PFT Interpretation Lung volumes were measured with the body plethysmography method. The mildly diminished total lung capacity could be related to restrictive respiratory disease. The remaining lung volumes are unremarkable. Spirometry showed diminished expiratory flow rates and a near normal FEV1 to FVC ratio of 67%. Following administration of a bronchodilator there was no significant increase in the expiratory flow rates. Lung diffusion capacity is moderately reduced at 55% predicted. The flow-volume loop is unremarkable. Impression: Probable mild restrictive respiratory disease. Moderately reduced lung diffusion capacity.
--- NOTE | 2023-04-13 13:03 | WPDSIXMINUTE ---
Six Minute Walk Procedure Procedure Performed Pulmonary Stress Test (6 min walk) Six Minute Walk Six Minute Walk: This 6-minute walk test was carried out with the patient breathing room air. The pre-walk baseline oxyhemoglobin saturation was 95%. The patient walked 213 m with no stops during testing. During the walk the oxyhemoglobin saturation remained in the range of 95% to she has 97%. Impression: No evidence of oxyhemoglobin desaturation on this testing.
== END 2023-04-13 08:23 | disposition home or self-care (01) ==
LOC: ANHPFT 08:23
PROVIDERS: PCP Internal Medicine; Visit Provider Internal Medicine Pulmonary Disease
DX: J44.9 Chronic obstructive pulmonary disease, unspecified (principal)
CPT/HCPCS: 36600; 82375; 82805; 83050; 94060; 94618; 94726; 94729

== ENCOUNTER 2023-06-27 10:01 | Outpatient (CLI) | payer MEDICARE, SELFPAY ==
--- NOTE | ~2023-06-27 | CT_ITS ---
. EXAMINATION: CT diagnostic chest wo con DATE: 06/27/2023 10:25 INDICATION: Left upper lobe consolidation TECHNIQUE: Computed tomography (CT) of the chest was performed without intravenous contrast. Automate d exposure control and iterative reconstruction technique were employed. Exam dose: 384.45 mGy-cm to nataly exam DLP. COMPARISON: 12/27/2022 CT chest 07/15/2020 CT chest FINDINGS: Approximately 1.4 x 2.2 cm irregular cavitary thick walled mass density is noted in the anterior segm ent of the right upper lobe. Diffusion diagnosis includes infection or malignancy. Consider CT-guided percutaneous needle biopsy for tissue diagnosis. There are scattered areas of bronchiectasis and/or honeycombing, particularly in the anterior segment s of the upper lobes, right greater than left. Mild emphysematous changes. No pulmonary infiltrate or consolidation. Left basilar lower lobe calcified pulmonary granuloma. Heart size is within normal limits. Coronary artery calcifications and some calcification in the becky on of the aortic valve are noted. Ascending aorta measures up to 4.4 cm diameter, moderately dilated. Aortic arch diameter of 3 cm, bor derline size. Descending thoracic aorta measures 2.8 cm, within normal range. No hilar or mediastinal mass lesion or lymphadenopathy. No pericardial or pleural effusion. Small sliding hiatal hernia. Cholelithiasis. The adrenal glands are only partially included in this examination. Probable 14 x 17 mm right adrenal adenoma, with attenuation of -7 Hounsfield units.. Degenerative spurring of the thoracic and lumbar spine. No suspicious osteolytic or osteoblastic lesi ons are noted. IMPRESSION: Approximately 1.4 x 2.2 cm thick walled irregular cavitary mass lesion of anterior segme nt of right upper lobe; differential diagnosis includes malignancy versus infectious etiology. Consid er CT-guided percutaneous needle biopsy Mild emphysema, scattered areas of bronchiectasis and/or honeycombing Ascending thoracic aortic aneurysm Coronary atherosclerosis Small sliding hiatal hernia Cholelithiasis Probable small right adrenal adenoma, stable since July 15, 2020 Reviewed, dictated and finalized at Location A. Reviewed, dictated and finalized at location L. IMPRESSION: Approximately 1.4 x 2.2 cm thick walled irregular cavitary mass le ashu of anterior segment of right upper lobe; differential diagnosis includes m alignancy versus infectious etiology. Consider CT-guided percutaneous needle bi opsy Mild emphysema, scattered areas of bronchiectasis and/or honeycombing Ascending thoracic aortic aneurysm Coronary atherosclerosis Small sliding hiatal hernia Cholelithiasis Probable small right adrenal adenoma, stable since July 15, 2020
== END 2023-06-27 10:02 | disposition home or self-care (01) ==
PROVIDERS: PCP Internal Medicine; Visit Provider Internal Medicine Pulmonary Disease
DX: R91.8 Other nonspecific abnormal finding of lung field (principal); J43.9 Emphysema, unspecified; I71.20 Thoracic aortic aneurysm, without rupture, unspecified; I25.10 Atherosclerotic heart disease of native coronary artery without angina pectoris; K44.9 Diaphragmatic hernia without obstruction or gangrene; K80.20 Calculus of gallbladder without cholecystitis without obstruction; D35.01 Benign neoplasm of right adrenal gland
CPT/HCPCS: 71250

== ENCOUNTER 2023-07-11 05:36 | Outpatient (CLI) | payer MEDICARE, SELFPAY ==
--- NOTE | 2023-06-30 15:18 | PC.NURSE ---
Pre Radiology instructions Report to the outpatient mateus ibrahim on date _07/11/23____ at time __0900 for procedure Time: 1100____ YOU MAY BE MONITORED AT HOSPITAL FOR UP TO 4 HOURS AFTER YOUR PROCEDURE. A visitor will be allowed to accompany the patient into the hospital. You and your visitor will be asked to self-screen and do not enter if you have any COVID symptoms. A mask is OPTIONAL within the hospital. Patients are to have no food or drink 6 hours prior to procedure time Driving will be restricted after the procedure, you must have a person to drive you home. Labs will be drawn in preop area and once reviewed, you will be taken to radiology area for procedure. When the procedure is completed, you will be taken to outpatient where you will be monitored for several hours. You may have one visitor in this area. Other than holding anti-coagulants, patient may take other medication(s) as scheduled. Prior to your appointment date patients are instructed to hold anti-coagulants after discussing with ordering provider to stop. If unable to discontinue anti-coagulants please notify radiologist. ? No aspirin or warfarin (Coumadin) for 7 days prior to the procedure. ? No clopidogrel (Plavix), ticagrelor (Brilinta), prasugrel (Effient) or dabigatran (Pradaxa) for 5 days prior to the procedure. ? No rivaroxaban (Xarelto), apixaban (Eliquis), dipyridamole (Aggrenox or Persantine) or cilostazol (Pletal) for 2 days prior to the procedure. Medications to discontinue per physician: _ASPIRIN HOLD 7 DAYS PRE OP .LAST DOSE 07/03/23 Please leave all valuables, including medications, at home the day of procedure. The hospital will not accept responsibility for valuables. Wear comfortable, loose fitting clothing.? Follow any additional instructions given to you from ordering provider. Telephone instructions given to _PATIENT and asked if any additional questions and then verbalized understanding. Patient advised to call scheduling provider office or registration scheduling [phone] if any additional questions.
[2023-06-30 15:21] VITALS: BMI 34.0
[2023-07-11] VITALS (11 sets, daily range): BP systolic 120–145; BP diastolic 64–88; PULSE 62–73; RESP 16–20; TEMP 36.6; O2SAT 94–99; BMI 34.9
--- NOTE | ~2023-07-11 | XR_ITS ---
EXAMINATION: XR chest 1V portable DATE: 07/11/2023 13:28 INDICATION: Right lung nodule status post percutaneous biopsy. TECHNIQUE: A single frontal view of the chest was obtained. COMPARISON: Chest single view at 12:04 PM FINDINGS: There is a small right pneumothorax. No pleural effusion or pneumothorax. The heart size is normal. There is a small hiatal hernia. IMPRESSION: 1. Stable small right pneumothorax. Reviewed, dictated and finalized at location A.
--- NOTE | ~2023-07-11 | CT_ITS ---
EXAMINATION: CT biopsy lung w/imaging DATE: 07/11/2023 12:25 INDICATION: Right lung upper lobe nodule. TECHNIQUE: The procedure including the risks, benefits, and alternatives and possibility of chest tub e placement were discussed with the patient. Risks discussed included infection, hemorrhage, approxim ately 1/3 risk of pneumothorax, approximately 1/10 risk of pneumothorax severe enough to warrant ches t tube placement, and rarely . The patient understood the risks and agreed to proceed. The patie nt was placed prone. The skin overlying the right chest was prepped and draped in sterile fashion. Anesthetic was administered with 1% lidocaine subcutaneously. A 19 gauge outer needle was advanced u nder CT guidance to the lesion of interest. A 20 gauge core biopsy needle was then used to obtain 3 c ore biopsy specimens. The needle was removed and the entry site was cleaned and dressed. The mA was a djusted according to patient size. Iterative reconstruction technique was employed. The dose-length p roduct was 111.33 mGy-cm. There were no immediate complications. FINDINGS: CT images demonstrate the outer needle tip adjacent to a 1.9 cm cavitary nodule in right up per lobe. IMPRESSION: 1. CT-guided core needle biopsy of a 1.9 cm cavitary nodule in right lung upper lobe. Reviewed, dictated and finalized at location A. IMPRESSION: 1. CT-guided core needle biopsy of a 1.9 cm cavitary nodule in right lung uppe r lobe.
--- NOTE | ~2023-07-11 | XR_ITS ---
EXAMINATION: XR chest 1V DATE: 07/11/2023 12:07 INDICATION: Right lung nodule status post percutaneous biopsy. TECHNIQUE: A single frontal view of the chest was obtained. COMPARISON: Chest CT 06/27/2023 FINDINGS: There is no pneumonia or pleural effusion. There is a small right pneumothorax. The heart s ize is normal. There is a small hiatal hernia. IMPRESSION: 1. Small right pneumothorax. Reviewed, dictated and finalized at location A.
--- NOTE | ~2023-07-11 | XR_ITS ---
EXAMINATION: XR chest 1V portable Exam Date/Time: 07/11/2023 15:00 CDT HISTORY: Post Image Guided Lung Biopsy , 3 HOUR POST Comparison: None. RESULT: Lines, tubes, and devices: None. Lungs and pleura: Small right apical pneumothorax, slightly increased. Mild diffuse reticular opacit ies. Streaky bibasilar atelectasis/scar. Cardiomediastinal silhouette: Stable. Other: No acute osseous or upper abdominal finding. IMPRESSION: Small right apical pneumothorax, slightly increased since the prior exam. Consider continued radiogra [facility] follow-up. Reviewed, dictated and finalized at location K. IMPRESSION: Small right apical pneumothorax, slightly increased since the prior exam. Consi kb continued radiographic follow-up.
--- NOTE | 2023-07-11 09:22 | SUR.PREOP ---
0922- Called Dr. Cr and notified patient stopped Aspirin 07/07/2023. Per Dr. Cr OK to proceed with procedure.
[2023-07-11 09:56] LABS: Platelet Count Result 281 k/mm3 (150-375)
[2023-07-11 10:09] LABS: Prothrombin Time 13.3 Seconds (11.1-14.7)
[2023-07-11] MEDS: HYDROcodone/acetaminophen (*CRX) 5-325 MG TABLET 2 TAB PO (12:44)
[2023-07-11] MEDS: CYCLOBENZAPRINE HCL 10 MG TABLET PO (13:51)
--- NOTE | 2023-07-11 16:09 | SUR.PHASEII ---
1355: Waiting on Ride
== END 2023-07-11 16:05 | disposition home or self-care (01) ==
PROVIDERS: PCP Internal Medicine; Referring Provider Internal Medicine Pulmonary Disease; Visit Provider Radiology Diagnostic Radiology
PROC: BB24ZZZ Computerized Tomography (CT Scan) of Bilateral Lungs (ICD-10-PCS; CPT 32408; principal; 2023-07-11 11:00)
DX: Z01.818 Encounter for other preprocedural examination (principal); R91.1 Solitary pulmonary nodule; J93.83 Other pneumothorax; C34.91 Malignant neoplasm of unspecified part of right bronchus or lung; R91.8 Other nonspecific abnormal finding of lung field
CPT/HCPCS: 32408; 36415; 71045; 85049; 85610; 88305; 88342; A9270

== ENCOUNTER 2023-07-25 13:19 | Outpatient (CLI) | payer MEDICARE, SELFPAY ==
--- NOTE | ~2023-07-25 | PE_ITS ---
EXAMINATION: PET skull to mid thigh DATE: 07/25/2023 15:16 INDICATION: Malignant neoplasm of the lung TECHNIQUE: Blood glucose level was 109 mg/dL. 11.506 mCi of 18-fluorodeoxyglucose (18-FDG) was admini stered i.v. Low dose computed tomography (CT) images were acquired from the base of the brain to the proximal thighs for attenuation correction and anatomic localization. Positron emission tomography (P ET) images were acquired in the same distribution beginning 53 minutes after injection. Images includ ing fused PET/CT images were reconstructed in axial, coronal, and sagittal planes. Automated exposure control technique was employed. The dose-length product was 1353.93mGy-cm. COMPARISON: Chest CT dated 11/30/2022 FINDINGS: Head/neck: There is symmetric increased activity in the oral cavity, nasopharynx and ocular muscles without CT c orrelate, likely physiologic. No pathologically enlarged cervical lymphadenopathy or suspicious foci of increased FDG uptake in the visualized head or neck. Chest: Moderate increased FDG uptake with maximal SUV of 10.8 associated with a 2.3 x 2.1 cm spiculated nodu le in the anterior segment of the right upper lobe. Mosaic attenuation the lungs most likely subsegme ntal atelectasis related to expiratory phase of imaging with more lucent subsegmental air trapping re lated to small airway disease. No other suspicious pulmonary nodules, pneumonia, pulmonary edema or p leural effusion. Heart size is normal. Atherosclerotic coronary artery calcification. No pericardial effusion. 4.6 cm ascending thoracic aortic aneurysm. Calcified right hilar and mediastinal lymph node s consistent with old granulomatous disease. No pathologically enlarged thoracic lymphadenopathy. Sma ll sliding-type hiatal hernia. Abdomen/pelvis/proximal thighs: Physiologic renal accumulation and excretion of FDG activity in the kidneys, bladder and along portio ns of ureters. Normal degree and heterogenous pattern of increased uptake throughout the liver withou t radiologic correlate or dominant FDG avid lesion. There are couple calcified gallstones at the neck of the otherwise normal-appearing gallbladder. The pancreas, spleen and left adrenal gland are fidencio l. 1.7 cm low-attenuation right adrenal adenoma. Mild uptake scattered throughout the bowels without radiologic correlate, also likely physiologic. Normal appendix. No other abnormal foci of increased F DG uptake or pathologically enlarged lymphadenopathy in the abdomen, pelvis or proximal thighs. Musculoskeletal: Likely physiologic mild uptake without radiologic correlate at the left teres minor muscle. Asymmetri c increased uptake overlying the left greater trochanter consistent with mild left trochanteric bursi tis. No suspicious lytic, blastic or FDG avid bone lesions. IMPRESSION: 1. Increased uptake associated with a 2.3 cm spiculated right upper lobe nodule, biopsy-proven poorly differentiated invasive non-small cell carcinoma. No evident metastatic disease. 2. Cholelithiasis. 3. 4.6 cm ascending thoracic aortic aneurysm. Reviewed, dictated and finalized at location A. IMPRESSION: 1. Increased uptake associated with a 2.3 cm spiculated right upper lobe nodule , biopsy-proven poorly differentiated invasive non-small cell carcinoma. No dawna dent metastatic disease. 2. Cholelithiasis. 3. 4.6 cm ascending thoracic aortic aneurysm.
[2023-07-25 13:49] LABS: Glucose Point of Care 109 mg/dl (65-105)
== END 2023-07-25 13:20 | disposition home or self-care (01) ==
LOC: ANHIMG 13:21
PROVIDERS: PCP Internal Medicine; Visit Provider Internal Medicine Hematology & Oncology
DX: C34.11 Malignant neoplasm of upper lobe, right bronchus or lung (principal); K80.20 Calculus of gallbladder without cholecystitis without obstruction; I71.21 Aneurysm of the ascending aorta, without rupture
CPT/HCPCS: 78815; A9552

== ENCOUNTER 2023-08-23 14:19 | Outpatient (CLI) | payer MEDICARE, SELFPAY ==
--- NOTE | ~2023-08-23 | XR_ITS ---
EXAMINATION: XR chest 2V DATE: 08/23/2023 14:45 INDICATION: Cough, unspecified. Fever. TECHNIQUE: Frontal and lateral views of the chest were obtained. COMPARISON: Chest single view 07/11/2023 FINDINGS: There is a nodule in right upper lobe. No pleural effusion or pneumothorax. The heart size is normal. IMPRESSION: 1. Nodule in right lung upper lobe, consistent with primary bronchogenic carcinoma. Reviewed, dictated and finalized at location E. IMPRESSION: 1. Nodule in right lung upper lobe, consistent with primary bronchogenic carcin etta.
== END 2023-08-23 14:20 ==
PROVIDERS: PCP Clinical Nurse Specialist; Visit Provider Clinical Nurse Specialist
DX: R91.1 Solitary pulmonary nodule (principal); R05.9 Cough, unspecified
CPT/HCPCS: 71046

== ENCOUNTER 2023-10-13 10:30 | Emergency (ER) | payer MEDICARE, SELFPAY ==
--- NOTE | ~2023-10-13 | XR_ITS ---
EXAMINATION: XR shoulder RT min 2V DATE: 10/13/2023 11:23 INDICATION: Nontraumatic right shoulder pain TECHNIQUE: AP internally and externally rotated, AP oblique externally rotated and transscapular Y vi ews of the right shoulder were obtained. COMPARISON: None FINDINGS: Normal alignment. No fracture of the right shoulder. There are age-indeterminate fractures, minimally displaced at the posterolateral right sixth rib and with 1.5 cm inferior displacement of a fracture at the posterolateral right eighth rib. These are new since chest radiograph dated 08/23/2023 and PET/ CT dated 07/25/2023. Also new are surgical clips at the right hilum which suggests these fractures cou ld represent changes of thoracotomy for resection of a reported prior lung cancer. Glenohumeral joint is normal. Mild acromioclavicular osteoarthritis. Soft tissues are unremarkable. IMPRESSION: 1. Mild right chronic clavicular osteoarthritis. No acute osseous abnormality at the right shoulder. 2. Recent fractures at the posterolateral right sixth and eighth ribs, the latter with significant di splacement. These along with surgical clips at the right hilum are new since 08/23/2023 and ribs and c hange of a right thoracotomy for resection of a reported malignant right lung mass. Correlate with maynard rgical history. Reviewed, dictated and finalized at location B. IMPRESSION: 1. Mild right chronic clavicular osteoarthritis. No acute osseous abnormality a t the right shoulder. 2. Recent fractures at the posterolateral right sixth and eighth ribs, the latt er with significant displacement. These along with surgical clips at the right hilum are new since 08/23/2023 and ribs and change of a right thoracotomy for re section of a reported malignant right lung mass. Correlate with surgical histor y.
[2023-10-13 10:38] VITALS: BP 100/57; PULSE 99; RESP 16; TEMP 36.6; O2SAT 98
--- NOTE | 2023-10-13 11:07 | ED.UPPEXIN ---
HPI - Extremity Injury (Upper) General Chief Complaint: Extremity Injury, Upper Stated Complaint: R SHOULDER PAIN Time Seen by Provider: 10/13/23 10:44 Source: patient and RN notes reviewed Mode of arrival: ambulatory Limitations: no limitations History of Present Illness HPI narrative: Patient presents today complaining of right shoulder pain. States shoulder has been bothering him for the last 10 years, but for the past 5 days it has been significantly worse. He does report some intermittent radiation of the pain down his upper arm. Currently rates his pain 8/10 and has been taking Waller left over from his recent longer section as well as Flexeril with some mild relief. He has had shoulder surgery on the left shoulder by Dr. Henriquez in the past. Related Data Home Medications Medication Instructions Recorded Confirmed cyclobenzaprine 10 mg tablet 10 mg PO TID PRN Spasms 07/15/19 10/13/23 fluticasone propionate 50 2 spray intranasal DAILY 07/15/19 10/13/23 mcg/actuation nasal spray,suspension (Flonase Allergy Relief) gabapentin 300 mg capsule 300 mg PO TID PRN Pain 07/15/19 10/13/23 hydrocodone 10 mg-acetaminophen 1 tablet PO TID PRN Pain 07/15/19 10/13/23 325 mg tablet hydrochlorothiazide 25 mg tablet 25 mg PO DAILY 12/09/20 10/13/23 acetaminophen 500 mg capsule 500 mg PO TID PRN Pain 04/08/21 10/13/23 docusate sodium 100 mg capsule 100 mg PO BID PRN Constipation 04/08/21 10/13/23 (Dulcolax Stool Softener (docusate)) ranolazine 500 mg tablet,extended 500 mg PO Q12H 08/04/21 10/13/23 release,12 hr carvedilol 12.5 mg tablet 12.5 mg PO Q12H 05/30/23 10/13/23 tamsulosin 0.4 mg capsule 0.4 mg PO DIRECTED 10/13/23 10/13/23 Allergies Allergy/AdvReac Type Severity Reaction Status Date / Time morphine Allergy Intermediate Vomiting Verified 09/12/23 13:26 spironolactone Allergy Intermediate Hives Verified 09/12/23 13:26 Review of Systems Review of Systems: CONSTITUTIONAL: Denies body aches, fever, chills, or sweats. EYES: Denies visual changes, redness, or discharge. ENT: Denies rhinorrhea, congestion, sore throat, or otalgia. CARDIOVASCULAR: Denies chest pain, palpitations, or edema. RESPIRATORY: Denies cough or dyspnea. GASTROINTESTINAL: Denies abdominal pain, nausea, vomiting, or diarrhea. GENITOURINARY: Denies dysuria or hematuria. SKIN: Denies rash, itching, or wounds. MUSCULOSKELETAL: Denies back pain, or myalgia.+ right shoulder pain NEUROLOGIC: Denies headache, numbness, tingling, or weakness. PSYCH: Denies depression or anxiety. [facility] Past Medical History Medical History AAA (abdominal aortic aneurysm) Allergies Chronic back pain Erectile dysfunction Frozen shoulder Hypertension Surgical History Surgical History H/O shoulder surgery Left 05/2008 History of back surgery Multiple Family History Family History Father Malignant neoplasm of prostate Other Cerebrovascular accident Diabetes mellitus Family history of arthritis Family history of cardiovascular disease Family history of kidney disease Family history of malignant neoplasm Hypertension Social History Social History Smoking packs per day: 0.50 Smoking cigarettes per day: 10.0 Years smoked: 52 Smoking pack-years: 26.00 Smoking status: Current every day smoker Tobacco type: cigarettes Alcohol intake: former Substance use: never Substance use type: does not use Lack of Transportation: No Lack of Food: Never True Current Housing: I Have Housing Concerned About Future Housing: No Difficulty Paying Gas/Electric Bills: No Difficulty Paying for Meds: No Currently Unemployed: No Education: Master's Degree or Higher Difficulty w/ Childcar
== END 2023-10-13 11:58 | disposition home or self-care (01) ==
PROVIDERS: Emergency Provider Nurse Practitioner; PCP Internal Medicine
DX: G89.29 Other chronic pain (principal); M25.511 Pain in right shoulder; I10 Essential (primary) hypertension; F17.210 Nicotine dependence, cigarettes, uncomplicated
CPT/HCPCS: 73030; 99213; G0463

== ENCOUNTER 2023-10-24 15:21 | Outpatient (CLI) | payer MEDICARE, SELFPAY ==
--- NOTE | ~2023-10-24 | XR_ITS ---
EXAMINATION: XR chest 2V Exam Date/Time: 10/24/2023 15:50 CDT HISTORY: Pneumothorax Comparison: 08/23/2023. RESULT: Lines, tubes, and devices: Right hilar surgical clips. Lungs and pleura: Right lower lobe scarring and right hemidiaphragm tenting. Right costophrenic angl e blunting. Cardiomediastinal silhouette: Stable. Other: No acute upper abdominal finding. Acute appearing fractures of the right posterior lateral si xth and seventh ribs IMPRESSION: Interval postsurgical changes in the right hilum and in the right lung. Acute appearing right postero lateral sixth and seventh rib fractures. Reviewed, dictated and finalized at location K. IMPRESSION: Interval postsurgical changes in the right hilum and in the right lung. Acute a ppearing right posterolateral sixth and seventh rib fractures.
== END 2023-10-24 15:22 | disposition home or self-care (01) ==
PROVIDERS: PCP Internal Medicine
DX: J93.9 Pneumothorax, unspecified (principal); Z98.890 Other specified postprocedural states
CPT/HCPCS: 71046

== ENCOUNTER 2023-10-26 12:36 | Outpatient (CLI) | payer MEDICARE, SELFPAY ==
[2023-10-26 13:04] LABS: Basophils Percent Auto 0.6 % (0.2-1.2); Eosinophils Absolute Auto 0.2 K/mm3 (0-0.3); Eosinophils Percent Auto 2.5 % (0-4.4); Hematocrit 36.7 % (42.0-52.0); Hemoglobin 12.6 g/dL (14.0-18.0); Immature Granulocyte Absolute 0.02 K/mm3 (0.00-0.031); Immature Granulocyte Percent A 0.3 % (0-0.5); Lymphocytes Percent Auto 21.8 % (18.3-44.2); Mean Corpuscular HGB Conc 34.3 g/dl (32-36); Mean Corpuscular Hemoglobin 32.1 pg (26-34); Mean Corpuscular Volume 93.6 fl (80-100); Mean Platelet Volume 9.7 fl (7.4-10.4); Monocytes Absolute Auto 0.6 K/mm3 (0.1-0.6); Neutrophils Absolute Auto 4.6 K/mm3 (1.3-6.7); Neutrophils Percent Auto 66.8 % (45.5-73.1); Platelet Count Result 321 k/mm3 (150-375); Red Blood Count 3.92 M/mm3 (4.6-6.20); Red Cell Distribution Width 13.6 % (11.5-14.5); White Blood Count 6.9 K/mm3 (4.5-10.0)
[2023-10-26 13:22] LABS: Anion Gap 10 mmol/L (4-12); Blood Urea Nitrogen 15 mg/dL (9-20); Calcium 9.1 mg/dL (8.4-10.2); Carbon Dioxide 23 mmol/L (22-30); Chloride 105 mmol/L (98-107); Estimated Glomerular Filt Rate > 60; Glucose 166 mg/dL (65-110); Sodium 138 mmol/L (137-145)
[2023-10-26 13:39] LABS: Prothrombin Time 13.6 Seconds (11.1-14.7)
[2023-10-26 13:40] LABS: Partial Thromboplastin Time 29.5 Seconds (22.3-36.8)
== END 2023-10-26 12:37 | disposition home or self-care (01) ==
LOC: ANHSURGERY 12:40
PROVIDERS: Anesthesiology; PCP Internal Medicine; Visit Provider Surgery
DX: Z01.818 Encounter for other preprocedural examination (principal); I10 Essential (primary) hypertension; C34.90 Malignant neoplasm of unspecified part of unspecified bronchus or lung
CPT/HCPCS: 36415; 80048; 85025; 85610; 85730

== ENCOUNTER 2023-10-30 00:33 | Day surgery (SDC) | payer MEDICARE, SELFPAY ==
--- NOTE | 2023-10-26 09:52 | PC.NURSE ---
Report to the Outpatient Waiting Room, entrance under the green pavilion located off [address], at time __1100 AM on date __10/30/23 . Planned Procedure Time: _1:00 PM . Time changes happen often and if your time is changed the preop area will call you the afternoon before. - You and your visitor will be asked to self-screen and do not enter if you have any COVID symptoms. - A mask is optional within the hospital at this time. Patients may have clear liquids (water, carbonated beverages, clear teas, apple juice) until 3 hours prior to surgery( 10AM) with a maximum of 20 ounces. - No food from midnight until time of surgery - Infants may have breast milk until 4 hours before surgery, formula 6 hours prior to surgery. - Children will be allowed to drink immediately following surgery. If applicable, please bring a bottle or sippy cup to assist with drinking. Juice, water, soda, and popsicles are readily available. For infants on formula, please bring formula the day of surgery. Pacifiers are allowed. Take the following medications with a SIP of water the morning of surgery: _STIOLTO INHALER,CARVEDILOL,GABAPENTIN,HYDROCODONE IF NEEDED FOR PAIN,RANOLAZINE DO NOT STOP ANY OF YOUR OTHER PRESCRIPTION MEDICATIONS PRIOR TO SURGERY ?EXCEPT THE FOLLOWING Medications to discontinue per physician MAY CONTINUE ASPIRIN [address] JORDAN BUT DO NOT TAKE MORNING OF SURGERY____ Please no make-up, nail vietnamese, hairspray, perfume, deodorant, or body powder the day of surgery. No jewelry (including any body piercings) or valuables the day of surgery, leave them at home. Please take a shower or bath the night before, or the morning of, surgery with an antibacterial soap. Wear comfortable, loose fitting clothing. Children are encouraged to wear pajamas. - Jewelry must be removed prior to entering the operating room. Rings and piercings that are not removed may be cut off. - The hospital will not accept responsibility for valuables. - Please leave all valuables, including medications, at home the day of surgery. If you are going home after surgery, a licensed speedboat driver must drive you home. - NO public transportation without another adult if you receive anesthesia. - We recommend that an adult stay with you for 24 hours following discharge. - We also recommend that you do not drive, make important decision, drink alcoholic beverages, or take any drugs that were not prescribed by your health care provider for at least 24 hours after your discharge time. Follow any additional instructions given to you from your surgeon. If you or anyone in your household have experienced Covid symptoms in the past week, please notify your surgeon or the nurse liaison at the phone number below for possible testing. Telephone instructions given to __PATIENT and asked if any additional questions and then verbalized understanding. Patient advised to call surgeon office or pre surgery nurse liaison [phone] if any additional questions.
[2023-10-26 11:09] VITALS: BMI 34.0
--- NOTE | ~2023-10-30 | XR_ITS ---
XR chest port-a-cath/central Ordering provider: Kanu Garcia MD History: 67 years Male with . POST INSERTION MICHA CATH . Comparison: October 24, 2023 FINDINGS: MEDIASTINUM: The cardiac silhouette is not enlarged. Right Port-A-Cath with the tip overlying the superior vena cava. LUNGS: No effusion or pneumothorax. Opacification in the right lung base seen suggestive of pneumonia . Underlying fibrotic changes seen. Fibrotic changes in the left lung with possible pneumonitis. OTHER: No free air under the diaphragm. IMPRESSION: Pneumonia in the right lung bases. Fibrotic changes of both lungs with possible pneumonitis. Reviewed, dictated and finalized at location A.
--- NOTE | ~2023-10-30 | XR_ITS ---
EXAMINATION: XR fl guide central line w con DATE: 10/30/2023 13:25 CDT INDICATION: INSERTION MICHA CATH . TECHNIQUE: 1 fluoroscopic image of the chest were obtained during Port-A-Cath insertion, performed by Kanu Garcia MD. I was not present during the procedure. Fluoroscopy exposure time was 1 minute an d 0 seconds. Air Kerma 22.615 mGy. DAP 0.443 mGym2. COMPARISON: None FINDINGS/IMPRESSION: Fluoroscopic documentation of Port-A-Cath insertion. Please refer to the operative note for complete procedural details . Reviewed, dictated and finalized at location K.
[2023-10-30 10:19] VITALS: BP 139/73; PULSE 94; TEMP 37.5; O2SAT 98
[2023-10-30] MEDS: LACTATED RINGERS 1,000 ML 30 ML IV CONT (10:43)
--- NOTE | 2023-10-30 11:47 | WPDANESEPPF ---
Anes - Initial Pre Proc Eval Procedure: Operation Date: 10/30/23 13:00 Proposed Procedures p Mediport Placement - Kanu Garcia MD Date/Time: 10/30/23 11:47 Surgeon: Kanu Garcia MD Pre Op Diagnosis: malignant neoplasm of lung Patient Data Age: 67 Gender: M Height: 1.8 m Weight: 106.5 kg Last Vital Signs Temp 99.5 F 10/30/23 10:19 Pulse 94 10/30/23 10:19 BP 139/73 10/30/23 10:19 Pulse Ox 98 10/30/23 10:19 O2 Del Method Room Air 10/30/23 10:19 Allergies Allergy/AdvReac Type Severity Reaction Status Date / Time morphine Allergy Intermediate Vomiting Verified 10/26/23 09:33 spironolactone Allergy Intermediate Hives Verified 10/26/23 09:33 Home Medications Medication Instructions Recorded Confirmed Type cyclobenzaprine 10 mg tablet 10 mg PO TID PRN Spasms 07/15/19 10/26/23 History fluticasone propionate 50 2 spray intranasal DAILY 07/15/19 10/26/23 History mcg/actuation nasal spray,suspension (Flonase Allergy Relief) gabapentin 300 mg capsule 300 mg PO TID PRN Pain 07/15/19 10/26/23 History hydrochlorothiazide 25 mg tablet 25 mg PO DAILY 12/09/20 10/26/23 History aspirin 81 mg chewable tablet 81 mg PO DAILY@0800 #30 tabs 12/11/20 10/26/23 Rx (Children's Aspirin) atorvastatin 40 mg tablet 40 mg PO DAILY #30 tabs 12/11/20 10/26/23 Rx nitroglycerin 0.4 mg sublingual 0.4 mg sublingual Q5MIN PRN Chest 12/11/20 10/26/23 Rx tablet (Nitrostat) Pain #30 tabs acetaminophen 500 mg capsule 500 mg PO TID PRN Pain 04/08/21 10/26/23 History docusate sodium 100 mg capsule 100 mg PO BID PRN Constipation 04/08/21 10/26/23 History (Dulcolax Stool Softener (docusate)) ranolazine 500 mg tablet,extended 500 mg PO Q12H 08/04/21 10/26/23 History release,12 hr albuterol sulfate 90 mcg/actuation 2 inh inhalation Q4H PRN shortness 03/24/23 10/26/23 Rx aerosol inhaler of breath or wheezing #8.5 grams lisinopril 30 mg tablet 30 mg PO DAILY #90 tabs 09/18/23 10/26/23 Rx tiotropium 2.5 mcg-olodaterol 2.5 See Rx Instructions .Route 10/06/23 10/26/23 Rx mcg/actuation mist for inhalation .COMPLEX #4 mL (Stiolto Respimat) tamsulosin 0.4 mg capsule 0.4 mg PO DIRECTED 10/13/23 10/26/23 History carvedilol 12.5 mg tablet 25 mg PO Q12H 10/16/23 10/26/23 History hydrocodone 10 mg-acetaminophen 1 tablet PO .4-6H PRN pain #42 tabs 10/16/23 10/26/23 Rx 325 mg tablet Patient hx anesthesia problems: none Family hx anesthesia problems: none Results Review: All pre-operative results and documents have been reviewed as part of the pre-operative evaluation. [facility] Past Medical History Medical History AAA (abdominal aortic aneurysm) Allergies Chronic back pain Erectile dysfunction Frozen shoulder Hypertension Surgical History Surgical History H/O shoulder surgery Left 05/2008 History of back surgery Multiple Family History Family History Father Malignant neoplasm of prostate Other Cerebrovascular accident Diabetes mellitus Family history of arthritis Family history of cardiovascular disease Family history of kidney disease Family history of malignant neoplasm Hypertension Social History Social History Smoking packs per day: 1 Smoking cigarettes per day: 20.0 Years smoked: 52 Smoking pack-years: 52.00 Smoking status: Current every day smoker Tobacco type: cigarettes Additional smoking assessment comments: CURRENTLY SMOKES 10 CIGARETTES IN 5 DAYS Alcohol intake: former Substance use: never Substance use type: does not use Lack of Transportation: No Lack of Food: Never True Current Housing: I Have Housing Concerned About Future Housing: No Difficulty Paying Gas/Electric Bills: No Difficul
--- NOTE | 2023-10-30 13:15 | PM.IMHP ---
H&P: HPI History of Present Illness Date/Time: 10/30/23 13:15 Chief Complaint: Right lung CA Narrative: Pt recently dx with right lung CA. He is to undergo chemotherapy. He presents for portacatheter placement today. No prior hx of port placement or central line placement in upper central veins. No hx of clavicle fx. Review of Systems Review of Systems: The remainder of the review of systems to include constitutional, HEENT, cardiovascular, respiratory, GI, , integumentary, musculoskeletal, endocrine, immunologic, hematologic, psychiatric, and neurologic are all negative except for which is mentioned above in the HPI. [facility] Past Medical History Medical History AAA (abdominal aortic aneurysm) Allergies Chronic back pain Erectile dysfunction Frozen shoulder Hypertension Surgical History Surgical History H/O shoulder surgery Left 05/2008 History of back surgery Multiple Family History Family History Father Malignant neoplasm of prostate Other Cerebrovascular accident Diabetes mellitus Family history of arthritis Family history of cardiovascular disease Family history of kidney disease Family history of malignant neoplasm Hypertension Social History Social History Smoking packs per day: 1 Smoking cigarettes per day: 20.0 Years smoked: 52 Smoking pack-years: 52.00 Smoking status: Current every day smoker Tobacco type: cigarettes Additional smoking assessment comments: CURRENTLY SMOKES 10 CIGARETTES IN 5 DAYS Alcohol intake: former Substance use: never Substance use type: does not use Lack of Transportation: No Lack of Food: Never True Current Housing: I Have Housing Concerned About Future Housing: No Difficulty Paying Gas/Electric Bills: No Difficulty Paying for Meds: No Currently Unemployed: No Education: Master's Degree or Higher Difficulty w/ Childcare or Family Care: No Living arrangements: with family Spiritual care concerns: No Meds Home Medications and Allergies Home Medications Medication Instructions Recorded Confirmed Type cyclobenzaprine 10 mg tablet 10 mg PO TID PRN Spasms 07/15/19 10/26/23 History fluticasone propionate 50 2 spray intranasal DAILY 07/15/19 10/26/23 History mcg/actuation nasal spray,suspension (Flonase Allergy Relief) gabapentin 300 mg capsule 300 mg PO TID PRN Pain 07/15/19 10/26/23 History hydrochlorothiazide 25 mg tablet 25 mg PO DAILY 12/09/20 10/26/23 History aspirin 81 mg chewable tablet 81 mg PO DAILY@0800 #30 tabs 12/11/20 10/26/23 Rx (Children's Aspirin) atorvastatin 40 mg tablet 40 mg PO DAILY #30 tabs 12/11/20 10/26/23 Rx nitroglycerin 0.4 mg sublingual 0.4 mg sublingual Q5MIN PRN Chest 12/11/20 10/26/23 Rx tablet (Nitrostat) Pain #30 tabs acetaminophen 500 mg capsule 500 mg PO TID PRN Pain 04/08/21 10/26/23 History docusate sodium 100 mg capsule 100 mg PO BID PRN Constipation 04/08/21 10/26/23 History (Dulcolax Stool Softener (docusate)) ranolazine 500 mg tablet,extended 500 mg PO Q12H 08/04/21 10/26/23 History release,12 hr albuterol sulfate 90 mcg/actuation 2 inh inhalation Q4H PRN shortness 03/24/23 10/26/23 Rx aerosol inhaler of breath or wheezing #8.5 grams lisinopril 30 mg tablet 30 mg PO DAILY #90 tabs 09/18/23 10/26/23 Rx tiotropium 2.5 mcg-olodaterol 2.5 See Rx Instructions .Route 10/06/23 10/26/23 Rx mcg/actuation mist for inhalation .COMPLEX #4 mL (Stiolto Respimat) tamsulosin 0.4 mg capsule 0.4 mg PO DIRECTED 10/13/23 10/26/23 History carvedilol 12.5 mg tablet 25 mg PO Q12H 10/16/23 10/26/23 History hydrocodone 10 mg-acetaminophen 1 tablet PO .4-6H PRN pain #42 tabs 10/16/23 10/26/23 Rx 325 mg tablet Allergies Allergy/AdvReac Type
--- NOTE | 2023-10-30 13:20 | WPDHPUPDATE1 ---
History and Physical Update Update Date/Time: 10/30/23 13:20 History and Physical has been reviewed, including an updated exam of the patient. There are NO changes in the patient's condition. Risks, benefits, and alternatives have been discussed and questions answered. Patient agrees to proceed with procedure.
[2023-10-30] MEDS: ceFAZolin 2 GM/D5W 50 ML 2 GM/50 ML BAG IVPB (13:21)
[2023-10-30] MEDS: BUPivacaine HCL 0.5% 10 ML AMP 30 ML INFILTRATE (13:42)
[2023-10-30] MEDS: LIDO 1%/EPINEPHRINE 1:100,000 20 ML VIAL 30 ML INFILTRATE (13:42)
[2023-10-30] MEDS: HEPARIN SODIUM 1,000 UNITS/ML VIAL 1000 UNITS IV PUSH (13:43)
[2023-10-30] MEDS: HEPARIN SODIUM 5,000 UNITS/ML VIAL 5000 UNITS IRRIGATION (13:43)
--- NOTE | 2023-10-30 14:35 | W.PM.PROC2 ---
Procedure Note - Detailed Date of Procedure 10/30/23 Pre-op Diagnosis Malignant neoplasm of right lung Post-op Diagnosis Same Procedure Performed Placement of right internal jugular vein single-lumen port a catheter with intraoperative fluoroscopy. Surgeon Kanu Garcia MD Anesthesia MAC Indications Patient is a 67-year-old gentleman who presented for placement of chandler catheter as he was recently diagnosed with right lung cancer. Findings None significant Description of Procedure After informed consent was obtained patient brought to the operating room was placed supine position and then IV sedation was administered by anesthesia. Bilateral upper anterior neck and chest was then prepped and draped usual sterile fashion. Time-out was then performed correctly identifying the patient as well as procedure to be performed verifying he was given some perioperative IV antibiotics. I then utilized 1% lidocaine mixed with 0.5% Marcaine injected just below the medial 3rd of the right clavicle in the right upper anterior chest. I then made a transverse incision this area the scalp and then dissected down through the subcutaneous tissue electrocautery. I then created a subcutaneous port pocket below this incision with electrocautery and blunt finger dissection. Through this incision after the patient was placed in the trend downward head-down position I then used a long 18gauge spinal needle to attempt cannulation of the right subclavian vein. On multiple attempts I was unable to cannulate the right subclavian vein. Cannulate the right subclavian artery on 2 attempts and pressure was held on the area to achieve hemostasis. I then turned my attention trying to cannulate the right internal jugular vein. This was some with difficult as well but I was finally able to use the 18gauge spinal needle to cannulate the right internal jugular vein percutaneously on the 3rd pass. There was prompt return of dark venous appearing blood into the syringe. I then advanced a guidewire into the needle and subsequent down into the superior vena cava via the right internal jugular vein. The needle was removed leaving the guidewire in place. Intraoperative fluoroscopy was then used to visualize the tip of the guidewire which was in the right atrium of the heart. I then proceeded to tunnel the 9.6 Bahamian single-lumen catheter between the anterior chest wall incision and the insertion site of the guidewire on the right anterior neck. Once this was done I then advanced a dilator breakaway sheath over the guidewire into the right internal jugular vein. The guidewire and dilator were removed leaving the sheath in place. The 9.6 Bahamian single-lumen catheter was then advanced through the sheath into the right internal jugular vein and subsequent down into the right atrium of the heart via the superior vena cava. Intraoperative fluoroscopy was then used to visualize the tip of the catheter and then I pulled the catheter external to the chest wall to pull the tip back until it was in the atriocaval junction on fluoroscopy. I then cut the catheter to the appropriate length the skin level. It was then attached to the titanium Smart Port. The port was then secured in subcu port pocket on 3 sides utilizing 3-0 Prolene suture. I then irrigated out the port pocket sterile saline solution hemostasis was good. I then accessed the port with a Arias needle and it aspirated blood easily and was flushed with heparinized saline solution. I then close incision utilizing interrupted 3-0 Vicryl sutures in the subcutaneous tissues. The skin edges were then approximated utilizing a running subcuticular 4-0 Monocryl suture. The small incision the right anterior neck was then closed with a 4-0 Monocryl suture as well. Lastly I then accessed the port percutaneously with a Arias needle. It again cynthia back blood easily and was flushed with 5000units of heparinized saline. The incisions were then cleaned the skin
[2023-10-30 14:36] VITALS: BP 114/77; PULSE 75; RESP 18; O2SAT 98
[2023-10-30 15:00] VITALS: BP 140/78; PULSE 70; RESP 16
[2023-10-30 15:30] VITALS: BP 141/89; PULSE 73; RESP 18; O2SAT 99
[2023-10-30 15:45] VITALS: BP 158/94; PULSE 73; RESP 18
--- NOTE | 2023-10-30 16:45 | SUR.PHASEII ---
Results of X-Ray discussed with provider, he stated that Dr Gilman should be aware and Patient should follow up with his director industrial nursing. I left a message with Dr Gilman's office and instructed patient to follow up with is director industrial nursing.
== END 2023-10-30 16:10 | disposition home health service (06) ==
PROVIDERS: PCP Internal Medicine; Visit Provider Surgery
PROC: (CPT 36561; principal; 2023-10-30 13:00)
DX: C34.91 Malignant neoplasm of unspecified part of right bronchus or lung (principal); J18.9 Pneumonia, unspecified organism; I10 Essential (primary) hypertension; M54.9 Dorsalgia, unspecified; G89.29 Other chronic pain; N52.9 Male erectile dysfunction, unspecified; F17.210 Nicotine dependence, cigarettes, uncomplicated; I71.40 Abdominal aortic aneurysm, without rupture, unspecified; E66.9 Obesity, unspecified; Z68.32 Body mass index [BMI] 32.0-32.9, adult; Z79.82 Long term (current) use of aspirin; Z79.51 Long term (current) use of inhaled steroids; Z79.891 Long term (current) use of opiate analgesic; Z98.890 Other specified postprocedural states; Z98.1 Arthrodesis status; Z80.42 Family history of malignant neoplasm of prostate; Z82.49 Family history of ischemic heart disease and other diseases of the circulatory system
CPT/HCPCS: 36561; 36415; 36598; 80048; 85025; 85610; 85730; C1788; J0690; J1644; J2704; J3010; J7030; J7120

== ENCOUNTER 2023-10-31 11:05 | Outpatient (CLI) | payer MEDICARE, SELFPAY ==
--- NOTE | ~2023-10-31 | MR_ITS ---
MR cervical spine wo con Ordering provider: Cherelle Liang NP History: 67 years Male with . M47.812 - Spondylosis without myelopathy or radiculopathy... . Comparison: 02/21/2014 Technique: MRI cervical spine without contrast. FINDINGS: Artifacts are seen in the mid cervical area which degraded the images. CERVICAL SPINAL CORD/CRANIAL CERVICAL JUNCTION: Normal in signal and caliber. CERVICAL VERTEBRAL BODIES: Normal height and alignment. Normal marrow signal. DISK SPACES: Narrowing of the disc space C5-C6 and C6-7. C2-C3: No stenosis. C3-C4: Mild spinal canal stenosis secondary to broad based disc bulge. Narrowing of the foramina with bilateral nerve root compression. C4-C5: Mild spinal canal stenosis secondary to broad based disc bulge. Mild narrowing of the foramin a. Bilateral nerve root compression. C5-C6: Mild spinal canal stenosis secondary to broad based disc bulge. Bright signal in the cord whi ch may indicate myelomalacia. Bilateral narrowing of the foramina nerve root compression. C6-C7: No stenosis. Bright signal in the cord which may indicate myelomalacia. Bilateral narrowing of the foramina nerve root compression. C7-T1: No stenosis. VISUALIZED PARASPINOUS SOFT TISSUES: Normal. IMPRESSION: 1. Multilevel degenerative disc disease with multilevel spinal canal stenosis and intervertebral for aminal narrowing. 2. Myelomalacia is possible at the level of C5-C6 and C6-C7. Clinical correlation advised. Reviewed, dictated and finalized at location A. IMPRESSION: 1. Multilevel degenerative disc disease with multilevel spinal canal stenosis and intervertebral foraminal narrowing. 2. Myelomalacia is possible at the level of C5-C6 and C6-C7. Clinical correlat ion advised.
--- NOTE | ~2023-10-31 | MR_ITS ---
EXAMINATION: MR shoulder RT wo con DATE: 10/31/2023 12:20 INDICATION: M25.511 - Pain in right shoulder . TECHNIQUE: Magnetic resonance imaging (MRI) of the right shoulder was performed without intravenous c ontrast. Sequences included axial PD-weighted FS FSE, coronal oblique PD-weighted FS FSE and T2-weigh stephen FS FSE, and sagittal oblique T2-weighted FS FSE and T1-weighted FSE. COMPARISON: 12/28/2013; x-ray right shoulder 10/13/2023. FINDINGS: Coracoacromial arch: Mild anterior downsloping of the type I acromion. Minimal acromial tip enthesopathy. No significant i nferior AC joint osteophytosis. No subacromial or subcoracoid narrowing. Rotator cuff: The rotator cuff is intact. Mild intermediate signal abnormality in the distal fibers of the infraspi nous and supraspinatus. Intermediate signal along the bursal surface of the talus. Biceps tendon and glenoid labrum: Long head of biceps is intact. Unchanged small anteroinferior and superior glenoid labral tears. Fluid: No abnormal fluid collection. Bones/cartilage: Mild diffuse cartilage thinning and glenoid labrum. Mild AC joint hypertrophy. IMPRESSION: Mild superior cuff tendinopathy and bursal sided fraying. No rotator cuff tear. Unchanged small anteroinferior and superior glenoid labral tears. Mild polyarticular osteoarthritis. Reviewed, dictated and finalized at location K.
== END 2023-10-31 11:06 ==
LOC: MICIMG 11:06
PROVIDERS: PCP Internal Medicine; Visit Provider Nurse Practitioner
DX: M19.011 Primary osteoarthritis, right shoulder (principal); M67.813 Other specified disorders of tendon, right shoulder; M50.321 Other cervical disc degeneration at C4-C5 level; M50.322 Other cervical disc degeneration at C5-C6 level; M50.323 Other cervical disc degeneration at C6-C7 level
CPT/HCPCS: 72141; 73221

== ENCOUNTER 2023-11-14 16:51 | Emergency (ER) | payer MEDICARE, SELFPAY ==
[2023-11-14] VITALS (14 sets, daily range): BP systolic 64–156; BP diastolic 41–129; PULSE 70–96; RESP 14–21; TEMP 36.3–36.7; O2SAT 91–100
--- NOTE | ~2023-11-14 | XR_ITS ---
EXAMINATION: XR chest 2V Exam Date/Time: 11/14/2023 17:45 CDT HISTORY: chest pain Comparison: 10/30/2023. RESULT: Lines, tubes, and devices: Right chest port terminating in the distal SVC. Lungs low volume with crown pouncer wding. Segmental left basilar airspace disease. Mild diffuse bilateral reticular opacities. Right low er lung scar and diaphragmatic tenting. Left costophrenic angle blunting. Lungs and pleura: Clear. Cardiomediastinal silhouette: Stable. Other: No acute osseous or upper abdominal finding. IMPRESSION: Segmental left basilar atelectasis/consolidation. Mild interstitial edema versus chronic interstitial change. Small left pleural effusion. Reviewed, dictated and finalized at location K. IMPRESSION: Segmental left basilar atelectasis/consolidation. Mild interstitial edema versu s chronic interstitial change. Small left pleural effusion.
--- NOTE | ~2023-11-14 | CT_ITS ---
EXAMINATION: CTA chest PE abdomen pel DATE: 11/14/2023 18:08 INDICATION: R sided chest pain TECHNIQUE: Computed tomography angiography (CTA) of the chest was performed with 100 mL Omnipaque-350 intravenous contrast timed to evaluate the pulmonary arteries, followed by portal venous phase imagi ng of the abdomen and pelvis. Coronal maximum intensity projection 3D-reconstructions were created by the technologist. The dose-length product (DLP) was 1952.72 mGy-cm. Automated exposure control and i terative reconstruction technique were employed. COMPARISON: PET/CT 07/25/2023. FINDINGS: CHEST: Lung parenchyma and airways: Right upper lobe lobectomy change. Mild septal thickening. Mild bibasila r atelectasis. No significant left basilar consolidation, prior radiograph findings likely related to a prominent pericardial fat pad. Pleura: Small loculated right pleural fluid collection, with mild peripheral enhancement, not visuali zed the prior radiograph due to incomplete inspiration. No left pleural effusion, prior findings like ly related to prominent pericardial fat pad. Thoracic inlet, axillae and chest wall: No thyroid or soft tissue mass. Thoracic aorta: Ascending thoracic aortic dilation up to 4.3 cm. No dissection. Mediastinum: Calcified right hilar nodes. Heart and pericardium: Normal. Coronary artery calcifications: Moderate. Thoracic bones: No acute osseous finding. Multiple old healed and partially healed right rib fracture s with inter-rib calcifications. Pulmonary arteries: Study quality: Mild motion artifact, overall diagnostic. No pulmonary emboli dete cted. ABDOMEN/PELVIS: Liver: Left lobe cyst/hemangioma.. Biliary/Gallbladder: Cholelithiasis. No inflammatory changes. No bile duct dilation. Pancreas: No mass or duct dilation. Spleen: Normal. Adrenals: Right adrenal adenoma. Kidneys: No suspicious mass, obstructing stone, or hydronephrosis. GI tract: No small or large bowel dilation. Normal appendix. Mesentery/Peritoneum: No ascites, mass, or free air. Retroperitoneum: No mass. 3.3 cm uniform infrarenal abdominal aortic aneurysm. Pelvis: Pelvic organs are within normal limits. Soft Tissues: Soft tissues and body wall unremarkable. Abdominopelvic bones: No acute osseous finding. IMPRESSION: No CT evidence of acute pulmonary embolus. Mild interstitial edema. Small volume loculated right pleural effusion. Pleural enhancement may indicate resolving post surgic al change. Empyema should remain in the differential. No acute process detected in the abdomen or pelvis. Reviewed, dictated and finalized at location K. IMPRESSION: No CT evidence of acute pulmonary embolus. Mild interstitial edema. Small volume loculated right pleural effusion. Pleural enhancement may indicate resolving post surgical change. Empyema should remain in the differential. No acute process detected in the abdomen or pelvis.
--- NOTE | 2023-11-14 17:06 | ECG_ITS ---
Test Date: 2023-11-14 17:10:45 Measurements Intervals [place] Rate: 86 P: 1 SD: 202 QRS: 42 QRSD: 94 T: 35 QT: 384 QTc: 459 Interpretive Statements SINUS RHYTHM INCOMPLETE RIGHT BUNDLE BRANCH BLOCK No previous ECG available for comparison Electronically Signed On 11-15-2023 17:04:23 CDT by Gino Fischer M.D.
[2023-11-14 17:16] LABS: Basophils Percent Auto 0.4 % (0.2-1.2); Eosinophils Absolute Auto 0.2 K/mm3 (0-0.3); Eosinophils Percent Auto 1.7 % (0-4.4); Hematocrit 39.9 % (42.0-52.0); Hemoglobin 13.2 g/dL (14.0-18.0); Immature Granulocyte Absolute 0.05 K/mm3 (0.00-0.031); Immature Granulocyte Percent A 0.5 % (0-0.5); Lymphocytes Absolute Auto 2.52 K/mm3 (0.9-3.2); Lymphocytes Percent Auto 26.9 % (18.3-44.2); Mean Corpuscular HGB Conc 33.1 g/dl (32-36); Mean Corpuscular Volume 96.6 fl (80-100); Monocytes Absolute Auto 0.8 K/mm3 (0.1-0.6); Monocytes Percent Auto 8.5 % (2.6-8.5); Neutrophils Absolute Auto 5.8 K/mm3 (1.3-6.7); Platelet Count Result 348 k/mm3 (150-375); Red Blood Count 4.13 M/mm3 (4.6-6.20); Red Cell Distribution Width 13.6 % (11.5-14.5); White Blood Count 9.4 K/mm3 (4.5-10.0)
[2023-11-14 17:26] LABS: INR 1.1
[2023-11-14 17:27] LABS: Alanine Aminotransferase 12 U/L (6-50); Albumin Level 4.3 g/dL (3.5-5.1); Alkaline Phosphatase 84 U/L (38-126); Anion Gap 13 mmol/L (4-12); Aspartate Amino Transferase 21 U/L (17-59); Bilirubin,Total 0.8 mg/dL (0.2-1.3); Blood Urea Nitrogen 23 mg/dL (9-20); Calcium 9.1 mg/dL (8.4-10.2); Carbon Dioxide 23 mmol/L (22-30); Chloride 96 mmol/L (98-107); Estimated CRCL calculation 49 ml/min; Estimated Glomerular Filt Rate 41; Glucose 143 mg/dL (65-110); Lipase 62 U/L (23-300); Partial Thromboplastin Time 33.6 Seconds (22.3-36.8); Potassium 3.8 mmol/L (3.4-5.0); Sodium 132 mmol/L (137-145)
[2023-11-14 17:37] LABS: Troponin I < 0.012 ng/mL (0.000-0.034)
--- NOTE | 2023-11-14 17:37 | ED.ABDPAIN ---
HPI - Abdominal Pain General Chief Complaint: Abdominal Pain Stated Complaint: right side pain Time Seen by Provider: 11/14/23 17:11 Source: patient Mode of arrival: ambulatory Limitations: no limitations History of Present Illness HPI narrative: this is a 67-year-old male A presents to the ED for chief complaint of right-sided chest pain and right-sided abdominal pain. Reports that 3 weeks ago he had lung resection procedure at [facility]. States that over the last couple of days he has had increased cough and increased pain. Versus some general fatigue but no fevers, chills, nausea, vomiting, syncope, numbness, weakness. Related Data Home Medications Medication Instructions Recorded Confirmed cyclobenzaprine 10 mg tablet 10 mg PO TID PRN Spasms 07/15/19 11/14/23 fluticasone propionate 50 2 spray intranasal DAILY 07/15/19 11/14/23 mcg/actuation nasal spray,suspension (Flonase Allergy Relief) gabapentin 300 mg capsule 300 mg PO TID PRN Pain 07/15/19 11/14/23 hydrochlorothiazide 25 mg tablet 25 mg PO DAILY 12/09/20 11/14/23 acetaminophen 500 mg capsule 500 mg PO TID PRN Pain 04/08/21 11/14/23 docusate sodium 100 mg capsule 100 mg PO BID PRN Constipation 04/08/21 11/14/23 (Dulcolax Stool Softener (docusate)) ranolazine 500 mg tablet,extended 500 mg PO Q12H 08/04/21 11/14/23 release,12 hr tamsulosin 0.4 mg capsule 0.4 mg PO DIRECTED 10/13/23 11/14/23 carvedilol 12.5 mg tablet 25 mg PO Q12H 10/16/23 11/14/23 folic acid 1 mg tablet 1 mg PO DAILY 11/14/23 11/14/23 Allergies Allergy/AdvReac Type Severity Reaction Status Date / Time morphine Allergy Intermediate Vomiting Verified 11/14/23 10:56 spironolactone Allergy Intermediate Hives Verified 11/14/23 10:56 Review of Systems Review of Systems: All systems as dictated in HPI [facility] Past Medical History Medical History AAA (abdominal aortic aneurysm) Allergies Chronic back pain Erectile dysfunction Frozen shoulder Hypertension Surgical History Surgical History H/O shoulder surgery Left 05/2008 History of back surgery Multiple Family History Family History Father Malignant neoplasm of prostate Other Cerebrovascular accident Diabetes mellitus Family history of arthritis Family history of cardiovascular disease Family history of kidney disease Family history of malignant neoplasm Hypertension Social History Social History Smoking packs per day: 1 Smoking cigarettes per day: 20.0 Years smoked: 51 Smoking pack-years: 51.00 Smoking status: Former smoker Tobacco type: cigarettes Smoking end date: 11/07/23 Additional smoking assessment comments: CURRENTLY SMOKES 10 CIGARETTES IN 5 DAYS Alcohol intake: former Substance use: never Substance use type: does not use Lack of Transportation: No Lack of Food: Never True Current Housing: I Have Housing Concerned About Future Housing: No Difficulty Paying Gas/Electric Bills: No Difficulty Paying for Meds: No Currently Unemployed: No Education: Master's Degree or Higher Difficulty w/ Childcare or Family Care: No Living arrangements: with family Spiritual care concerns: No Exam Narrative: GENERAL: Well-appearing, well-nourished, and in no acute distress. HEAD: Normocephalic, atraumatic. EYES: PERRLA and EOMI. ENT: Nares clear, no rhinorrhea or epistaxis. Mucous membranes moist. Oropharynx without tonsillar hypertrophy exudate or other lesions. NECK: Supple. No adenopathy or masses. CHEST: No respiratory distress. Clear to auscultation. No wheezes rales or rhonchi HEART: Regular rate and rhythm. No murmur heard. Normal peripheral pulses. ABDOMEN: Soft, nontender, nondistended, normal active bowel sounds. MSK: Normal rang
[2023-11-14] MEDS: SODIUM CHLORIDE 0.9% IV 1,000 ML 999 ML IV CONT ×2 (18:18→19:03)
--- NOTE | 2023-11-14 19:22 | PC.NURSE ---
[facility] updated on vs.
--- NOTE | 2023-11-14 19:52 | ECG_ITS ---
Test Date: 2023-11-14 19:52:36 Measurements Intervals [place] Rate: 71 P: 35 CO: 221 QRS: 35 QRSD: 101 T: 40 QT: 423 QTc: 462 Interpretive Statements SINUS RHYTHM WITH FIRST DEGREE AV BLOCK INCOMPLETE RIGHT BUNDLE BRANCH BLOCK [90+ ms QRS DURATION, TERMINAL R IN V1/V2, 40+ ms S IN I/aVL/V4/V5/V6] Compared to ECG 11/14/2023 17:10:45 First degree AV block now present Electronically Signed On 11-15-2023 17:08:14 CDT by Gino Fischer M.D.
--- NOTE | 2023-11-14 19:53 | ECG_ITS ---
Test Date: 2023-11-14 23:04:30 Measurements Intervals [place] Rate: 68 P: 7 NC: 222 QRS: 31 QRSD: 97 T: 29 QT: 427 QTc: 455 Interpretive Statements SINUS RHYTHM WITH FIRST DEGREE AV BLOCK INCOMPLETE RIGHT BUNDLE BRANCH BLOCK Compared to ECG 11/14/2023 19:52:36 NO SIGNIFICANT CHANGES Electronically Signed On 11-15-2023 17:09:26 CDT by Gino Fischer M.D.
[2023-11-14] MEDS: CEFEPIME 2 GM/NS 50 ML 2 GM/50 ML BAG IVPB (19:56)
[2023-11-14 20:03] LABS: Lactic Acid Reflex 0.6 mmol/L (0.7-2.0)
[2023-11-14] MEDS: VANCOMYCIN 1,250 MG/NS 250 ML 1,250 MG/250 ML BAG 166.67 MG IVPB ×2 (20:08→21:50)
[2023-11-14 20:15] LABS: Troponin I < 0.012 ng/mL (0.000-0.034)
[2023-11-14] MEDS: SODIUM CHLORIDE 0.9% IV 500 ML 999 ML IV CONT (21:50)
[2023-11-14 22:14] LABS: MRSA (PCR) NOT DETECTED (NOT DETECTE)
[2023-11-14 22:46] LABS: Add Urine Microscopic? NO; Appearance Urine Clear (Clear); Bilirubin Urine Negative (Negative); Blood Urine Negative (Negative); Color Urine Yellow (Yellow); Glucose Urine UA Negative (Negative); Ketones Urine Negative (Negative); Leukocyte Esterase Ur Negative LEU/UL (Negative); Nitrate Urine Negative (Negative); Protein Urine Negative (Negative); Specific Grav Ur 1.023 (1.001-1.035); Urobilinogen Urine 0.2 mg/dL (<2.0)
[2023-11-14 23:37] LABS: Troponin I < 0.012 ng/mL (0.000-0.034)
[2023-11-15] MEDS: ACETAMINOPHEN 500 MG TABLET 1000 MG PO (00:34)
[2023-11-15] MEDS: ONDANSETRON INJ 4 MG/2 ML VIAL IV PUSH (02:04)
[2023-11-15] MEDS: HYDROmorphone HCL INJ (*CRX) 1 MG/ML SYR 0.5 MG IV PUSH (02:04)
--- NOTE | 2023-11-15 04:21 | PC.NURSE ---
CANCELLED THE TRANSFER WITH [facility]. SPOKE TO MAIRA AND LET HER KNOW THE PATIENT WENT HOME.
== END 2023-11-15 04:00 | disposition left against medical advice (07) ==
PROVIDERS: Emergency Medicine; Emergency Provider Physician Assistant; PCP Internal Medicine
DX: J90 Pleural effusion, not elsewhere classified (principal); I95.9 Hypotension, unspecified; N17.9 Acute kidney failure, unspecified; I10 Essential (primary) hypertension; Z79.899 Other long term (current) drug therapy; Z87.891 Personal history of nicotine dependence
CPT/HCPCS: 36415; 71046; 71275; 74177; 80053; 81003; 83605; 83690; 84484; 85025; 85610; 85730; 87040; 87641; 93005; 96361; 96365; 96366; 96367; 96375; 99284; A9270; J0692; J1170; J2405; J3370; J7030; J7040; Q9967

== ENCOUNTER 2023-11-15 13:49 | Emergency (ER) | payer MEDICARE, SELFPAY ==
[2023-11-15] VITALS (14 sets, daily range): BP systolic 98–115; BP diastolic 43–72; PULSE 66–78; RESP 12–23; TEMP 36.6; O2SAT 94–99
--- NOTE | ~2023-11-15 | XR_ITS ---
XR chest 1V portable Ordering provider: Antionette Cook MD History: 67 years Male with . R chest pain s/p lung resection . Comparison: November 14, 2023 FINDINGS: MEDIASTINUM: The cardiac silhouette is not enlarged. Right Port-A-Cath. Prominent both molly more on t he right side. LUNGS: No effusions or pneumothorax. Bilateral interstitial changes which may indicate pneumonitis bu t fibrotic changes are also possible. Subsegmental atelectasis in the right lung base. OTHER: No free air under the diaphragm. Degenerative changes of the spine. IMPRESSION: Bilateral interstitial thickening which may indicate pneumonitis versus edema with possible underlyin g fibrotic changes. Reviewed, dictated and finalized at location A. IMPRESSION: Bilateral interstitial thickening which may indicate pneumonitis versus edema w ith possible underlying fibrotic changes.
--- NOTE | 2023-11-15 14:05 | ECG_ITS ---
Test Date: 2023-11-15 14:05:50 Measurements Intervals [place] Rate: 74 P: 3 OR: 218 QRS: 48 QRSD: 98 T: 42 QT: 401 QTc: 446 Interpretive Statements SINUS RHYTHM WITH FIRST DEGREE AV BLOCK INCOMPLETE RIGHT BUNDLE BRANCH BLOCK [90+ ms QRS DURATION, TERMINAL R IN V1/V2, 40+ ms S IN I/aVL/V4/V5/V6] ABNORMAL ECG Compared to ECG 11/14/2023 23:04:30 No significant changes Electronically Signed On 11-17-2023 13:19:23 CDT by Alcon Cruz M.D.
--- NOTE | 2023-11-15 14:52 | ED.WEAKNESS ---
HPI - Weakness General Chief complaint: Weakness Stated complaint: lung infection Time Seen by Provider: 11/15/23 14:16 History of Present Illness HPI Narrative: Patient is a 67-year-old male presenting with ?lung infection?. States that he was here yesterday and left against medical advice. He had a lung resection approximately 3 weeks ago at [facility]. For the last several days he has had worsening right-sided chest and abdominal pain associated with generalized weakness. Also complains of cough. He was seen here yesterday and transfer was arranged to [facility] where the resection was performed. The patient then left AMA. States that he will never go back to [facility] because they treated him like a criminal. He is open to [facility] facility. He denies any new or change symptoms. Related Data Home Medications Medication Instructions Recorded Confirmed cyclobenzaprine 10 mg tablet 10 mg PO TID PRN Spasms 07/15/19 11/14/23 fluticasone propionate 50 2 spray intranasal DAILY 07/15/19 11/14/23 mcg/actuation nasal spray,suspension (Flonase Allergy Relief) gabapentin 300 mg capsule 300 mg PO TID PRN Pain 07/15/19 11/14/23 hydrochlorothiazide 25 mg tablet 25 mg PO DAILY 12/09/20 11/14/23 acetaminophen 500 mg capsule 500 mg PO TID PRN Pain 04/08/21 11/14/23 docusate sodium 100 mg capsule 100 mg PO BID PRN Constipation 04/08/21 11/14/23 (Dulcolax Stool Softener (docusate)) ranolazine 500 mg tablet,extended 500 mg PO Q12H 08/04/21 11/14/23 release,12 hr tamsulosin 0.4 mg capsule 0.4 mg PO DIRECTED 10/13/23 11/14/23 carvedilol 12.5 mg tablet 25 mg PO Q12H 10/16/23 11/14/23 folic acid 1 mg tablet 1 mg PO DAILY 11/14/23 11/14/23 Allergies Allergy/AdvReac Type Severity Reaction Status Date / Time morphine Allergy Intermediate Vomiting Verified 11/15/23 13:49 spironolactone Allergy Intermediate Hives Verified 11/15/23 13:49 Review of Systems Review of Systems: All systems reviewed & are unremarkable except as noted in HPI and below PMFSH Past Medical History Medical History AAA (abdominal aortic aneurysm) Allergies Chronic back pain Erectile dysfunction Frozen shoulder Hypertension Surgical History Surgical History H/O shoulder surgery Left 05/2008 History of back surgery Multiple Family History Family History Father Malignant neoplasm of prostate Other Cerebrovascular accident Diabetes mellitus Family history of arthritis Family history of cardiovascular disease Family history of kidney disease Family history of malignant neoplasm Hypertension Social History Social History Smoking packs per day: 1 Smoking cigarettes per day: 20.0 Years smoked: 51 Smoking pack-years: 51.00 Smoking status: Former smoker Tobacco type: cigarettes Smoking end date: 11/07/23 Additional smoking assessment comments: CURRENTLY SMOKES 10 CIGARETTES IN 5 DAYS Alcohol intake: former Substance use: never Substance use type: does not use Lack of Transportation: No Lack of Food: Never True Current Housing: I Have Housing Concerned About Future Housing: No Difficulty Paying Gas/Electric Bills: No Difficulty Paying for Meds: No Currently Unemployed: No Education: Master's Degree or Higher Difficulty w/ Childcare or Family Care: No Living arrangements: with family Spiritual care concerns: No Exam Narrative: GENERAL: Chronically ill-appearing, no acute distress HEAD: Normocephalic, atraumatic. EYES: PERRLA and EOMI. ENT: Grossly unremarkable NECK: Supple. CHEST: No respiratory distress, diminished breath sounds bilaterally; healing incision R chest wall HEART: Regular rate and rhythm ABDOMEN: Soft, nontender, nondistended EXTREMITI
[2023-11-15 15:24] LABS: Basophils Percent Auto 0.8 % (0.2-1.2); Eosinophils Absolute Auto 0.1 K/mm3 (0-0.3); Eosinophils Percent Auto 2.6 % (0-4.4); Hematocrit 37.8 % (42.0-52.0); Hemoglobin 12.2 g/dL (14.0-18.0); Immature Granulocyte Absolute 0.01 K/mm3 (0.00-0.031); Immature Granulocyte Percent A 0.2 % (0-0.5); Lymphocytes Absolute Auto 1.45 K/mm3 (0.9-3.2); Lymphocytes Percent Auto 29.1 % (18.3-44.2); Mean Corpuscular HGB Conc 32.3 g/dl (32-36); Mean Corpuscular Hemoglobin 31.5 pg (26-34); Mean Corpuscular Volume 97.7 fl (80-100); Mean Platelet Volume 10.7 fl (7.4-10.4); Monocytes Absolute Auto 0.4 K/mm3 (0.1-0.6); Neutrophils Percent Auto 59.3 % (45.5-73.1); Platelet Count Result 326 k/mm3 (150-375); Red Blood Count 3.87 M/mm3 (4.6-6.20); Red Cell Distribution Width 13.7 % (11.5-14.5)
[2023-11-15] MEDS: SODIUM CHLORIDE 0.9% IV 1,000 ML 999 ML IV CONT ×2 (15:26→18:19)
[2023-11-15 15:35] LABS: Alanine Aminotransferase 10 U/L (6-50); Albumin Level 3.8 g/dL (3.5-5.1); Alkaline Phosphatase 77 U/L (38-126); Anion Gap 11 mmol/L (4-12); Aspartate Amino Transferase 19 U/L (17-59); Bilirubin,Total 0.6 mg/dL (0.2-1.3); Blood Urea Nitrogen 19 mg/dL (9-20); Calcium 8.6 mg/dL (8.4-10.2); Carbon Dioxide 22 mmol/L (22-30); Chloride 102 mmol/L (98-107); Estimated CRCL calculation 71 ml/min; Estimated Glomerular Filt Rate > 60; Glucose 139 mg/dL (65-110); Lipase 81 U/L (23-300); Potassium 3.7 mmol/L (3.4-5.0); Prothrombin Time 13.6 Seconds (11.1-14.7); Sodium 135 mmol/L (137-145)
[2023-11-15 15:36] LABS: Partial Thromboplastin Time 32.3 Seconds (22.3-36.8)
[2023-11-15 15:47] LABS: Troponin I < 0.012 ng/mL (0.000-0.034)
[2023-11-15 16:01] LABS: Influenza A QL RT-PCR Negative (Negative); Influenza B QL RT-PCR Negative (Negative); RSV RNA, RT-PCR Negative (Negative); SARS-CoV-2 RNA PCR Negative (Negative)
[2023-11-15] MEDS: HYDROcodone/acetaminophen (*CRX) 10-325 MG TABLET 1 TAB PO ×2 (16:41→20:29)
[2023-11-15] MEDS: CYCLOBENZAPRINE HCL 10 MG TABLET PO (16:41)
[2023-11-15] MEDS: GABAPENTIN 300 MG CAPSULE PO (16:43)
[2023-11-15] MEDS: ACETAMINOPHEN 500 MG TABLET 1000 MG PO (18:18)
== END 2023-11-15 20:30 | disposition short-term general hospital (02) ==
LOC: ANHED 14:27
PROVIDERS: Emergency Provider Emergency Medicine; PCP Internal Medicine
DX: J95.89 Other postprocedural complications and disorders of respiratory system, not elsewhere classified (principal); J86.9 Pyothorax without fistula; Z20.822 Contact with and (suspected) exposure to COVID-19; I10 Essential (primary) hypertension; G89.29 Other chronic pain; M54.9 Dorsalgia, unspecified; Z90.2 Acquired absence of lung [part of]; I44.0 Atrioventricular block, first degree; I45.10 Unspecified right bundle-branch block
CPT/HCPCS: 36415; 71045; 71046; 71275; 74177; 80053; 81003; 83605; 83690; 83735; 84484; 85025; 85610; 85730; 87040; 87637; 87641; 93005; 96360; 96361; 99285; A9270; J0692; J1170; J2405; J3370; J7030; J7040; Q9967

== ENCOUNTER 2024-02-14 08:23 | Outpatient (CLI) | payer MEDICARE, SELFPAY ==
--- NOTE | 2024-02-23 17:39 | P.PCNPFT_ITS ---
PFT Procedure Performed PFT Procedure Performed Spirometry with Pre/Post Bronchodilator Plethysmography (Lung Vol) Diffusing Cap (DLCO) Flow Vol Loop PFT Interpretation DOS: 02/14/2024 REQUESTING: Alcon Girard MD REASON FOR TESTING: COPD PULMONARY FUNCTION TESTS Results are reliable and reproducible. Repeatability of spirometry FEV1 maneuver pre and post bronchodilator is Grade A. Spirometry: The pre-bronchodilator FEV1 is 2.15 L, 61%, decreased. The pre- bronchodilator FVC is 3.51 L, 75%. The FEV1/FVC ratio is 61%, decreased. After bronchodilator, the FEV1 is 2.33 L, 66%. +8%. The FVC is 3.63 L, 77%, +3%. The FEV1/FVC ratio is 64%. Lung volumes: The total lung capacity is 4.84 L, 65%, decreased , consistent with restriction. The residual volume is 1.33 L, 53%decreased. The RV/TLC is 27%. Airway resistance is increased. Diffusion: DLCO is 13.4, 48%, decreased. The DLCO/VA is 2.95, 75%. Flow volume loop: The flow volume loop shows mixed obstruction and restriction. IMPRESSION: This study shows a new mild obstructive ventilatory impairment without response to bronchodilator, mild restriction and a moderate diffusion impairment. Lack of response to bronchodilator should not preclude use if clinically indicated. Compared to a study 04/13/2023, the FEV1, FVC, TLC and DLCO are are lower. The obstruction is new with progression of restriction and loss of diffusion. Florence Vega MD
== END 2024-02-14 08:24 | disposition home or self-care (01) ==
PROVIDERS: PCP Internal Medicine; Visit Provider Internal Medicine Pulmonary Disease
DX: J44.9 Chronic obstructive pulmonary disease, unspecified (principal); C34.90 Malignant neoplasm of unspecified part of unspecified bronchus or lung; J98.4 Other disorders of lung
CPT/HCPCS: 94060; 94726; 94729

== ENCOUNTER 2024-04-11 08:45 | Outpatient (CLI) | payer MEDICARE, SELFPAY ==
--- NOTE | ~2024-04-11 | XR_ITS ---
EXAMINATION: XR lumbar spine 2-3V DATE: 04/11/2024 09:16 INDICATION: Lumbar radiculopathy. TECHNIQUE: 3 views of lumbar spine including standing views were obtained. COMPARISON: Lumbar spine radiographs 11/30/2022, CT abdomen and pelvis 11/14/2023 FINDINGS: There is 16 degrees dextroscoliosis of thoracolumbar spine. Vertebral body heights are norm al. There is interbody fusion at L5-S1. There is mildly decreased disc height at L3-L4 and L4-L5. The re are endplate osteophytes at multiple levels. There is multilevel facet joint osteoarthritis, sever e bilaterally at L3-L4. IMPRESSION: 1. Mild lumbar spondylosis. 2. Thoracolumbar dextroscoliosis. Reviewed, dictated and finalized at location A. COAT WIPER
--- NOTE | ~2024-04-11 | XR_ITS ---
EXAMINATION: XR thoracic spine 3V DATE: 04/11/2024 09:16 INDICATION: Thoracic radiculopathy TECHNIQUE: One AP, lateral and lateral swimmer's views of the thoracic spine were obtained. COMPARISON: 11/16/2015 FINDINGS: 13 degrees thoracic levoscoliosis. Mild thoracic kyphosis. Vertebral body heights are normal. Mild mu ltilevel disc height loss throughout the thoracic spine. Volume loss in the right hemithorax with ten ting of the right hemidiaphragm and postoperative changes with surgical clips at the right hilum and suture line extending caudally from the right hilum suggesting prior partial right pneumonectomy. Rig ht internal jugular central venous port catheter with distal tip at the superior cavoatrial junction. IMPRESSION: 1. Mild thoracic kyphosis and levocurvature with mild spondylosis. Reviewed, dictated and finalized at location B. CULTURAL PRODUCE PACKER
--- NOTE | ~2024-04-11 | XR_ITS ---
EXAMINATION:XR_CERV2-3V_CR DATE: 04/11/2024 09:16 INDICATION: Cervical radiculopathy TECHNIQUE: AP, lateral, lateral swimmers and odontoid views of the cervical spine are provided. COMPARISON: None FINDINGS: Cervical alignment is normal. There is mild upper thoracic levocurvature. Odontoid is intact. Mild at lantoaxial osteoarthritis. Vertebral body heights are normal. Mild disc height loss at C3-C4 and C4-C 5, moderate disc height loss at C5-C6 and C6-C7. There is moderate to severe cervical facet and uncov ertebral osteoarthritis. Small atherosclerotic calcifications at the bilateral carotid bulbs. Prevert ebral soft tissues are otherwise normal. Visualized portion of the lungs are clear. Postoperative dariusz nges at the right hilum. Partially visualized right internal jugular central venous port catheter wit h distal tip at the caudal superior vena cava. IMPRESSION: 1. Moderate cervical spondylosis. Reviewed, dictated and finalized at location B. CAL DEVICE SALES REPRESENTATIVE
== END 2024-04-11 08:46 | disposition home or self-care (01) ==
PROVIDERS: PCP Internal Medicine
DX: M41.85 Other forms of scoliosis, thoracolumbar region (principal); M47.814 Spondylosis without myelopathy or radiculopathy, thoracic region; M47.816 Spondylosis without myelopathy or radiculopathy, lumbar region; M47.812 Spondylosis without myelopathy or radiculopathy, cervical region
CPT/HCPCS: 72040; 72072; 72100

== ENCOUNTER 2024-04-16 07:59 | Outpatient (CLI) | payer MEDICARE, SELFPAY ==
--- NOTE | ~2024-04-16 | CT_ITS ---
EXAMINATION:CT diagnostic chest w con DATE: 04/16/2024 08:49 INDICATION: Malignant neoplasm of lung. TECHNIQUE: Computed tomography (CT) of the chest was performed with 75 mL Omnipaque 350 intravenous c ontrast. Automated exposure control and iterative reconstruction technique were employed. The dose-le ngth product (DLP) was 378.36 mGy-cm. COMPARISON: Chest CT 11/14/23, 06/27/23, 07/15/20 FINDINGS: There are changes of right upper lobectomy. There is mild emphysema. There is peripheral se ptal thickening in the lungs. There is mild dependent atelectasis bilaterally. There is a 1.7 cm pleu ral-based nodule in basilar right lower lobe. There is a 6 mm nodule in left lower lobe, stable from 07/15/20, likely benign. A calcified left lung nodule and calcified mediastinal lymph nodes are consist ent with old granulomatous disease. No pleural effusion. The heart size is normal. There are coronary artery calcifications. No pericardial effusion. There is a gallstone in the gallbladder. The gallbla dder is distended, which may be secondary to fasting. There is an 8 mm cyst in the liver. There is a 1.6 cm mass in right adrenal gland that measured low attenuation on the noncontrast CT on 06/27/2023, likely an adenoma. There are healing/healed right rib fractures. There is a 6.4 x 1.6 cm rim-enhancin g cystic mass with calcifications between the inferior scapula and the rib fractures. There is perios teal reaction of the inferior scapula. There is a right internal jugular port with tip at superior ca voatrial junction. There is mild thoracic spondylosis. There is a benign bone island in T9. There is mild chronic anterior wedging of T10 and T11 vertebral bodies. IMPRESSION: 1. Worsened 1.7 cm pleural-based nodule in basilar right lower lobe suspicious for primary bronchogen ic carcinoma or metastatic disease. Consider PET/CT. 2. Healing/healed right rib fractures with 6.4 x 1.6 cm rim-enhancing cystic mass with calcifications between the inferior scapula and the ribs fractures and periosteal reaction of the inferior scapula, most likely scapulothoracic bursitis. Reviewed, dictated and finalized at location A. E WORKER PACKAGER IMPRESSION: 1. Worsened 1.7 cm pleural-based nodule in basilar right lower lobe suspicious for primary bronchogenic carcinoma or metastatic disease. Consider PET/CT. 2. Healing/healed right rib fractures with 6.4 x 1.6 cm rim-enhancing cystic ma ss with calcifications between the inferior scapula and the ribs fractures and periosteal reaction of the inferior scapula, most likely scapulothoracic bursit is.
[2024-04-16 08:40] LABS: Estimated Glomerular Filt Rate 47
== END 2024-04-16 08:00 | disposition home or self-care (01) ==
PROVIDERS: PCP Internal Medicine; Visit Provider Internal Medicine Hematology & Oncology
DX: R91.1 Solitary pulmonary nodule (principal); S22.41XD Multiple fractures of ribs, right side, subsequent encounter for fracture with routine healing; X58.XXXD Exposure to other specified factors, subsequent encounter; C34.90 Malignant neoplasm of unspecified part of unspecified bronchus or lung
CPT/HCPCS: 71260; Q9967

== ENCOUNTER 2024-05-06 16:21 | Emergency (ER) | payer MEDICARE, SELFPAY ==
[2024-05-06 16:30] VITALS: BP 110/81; PULSE 95; RESP 18; TEMP 36.4; O2SAT 98
[2024-05-06 17:07] LABS: EDCOVIDSCREEN Negative (Negative); EDINFLUASCREEN Negative (Negative); EDINFLUBSCREEN Negative (Negative)
--- NOTE | 2024-05-06 17:27 | ED_ITS ---
HPI - URI/Sore Throat General Chief Complaint: Upper Respiratory Infection Stated Complaint: Cough Time Seen by Provider: 05/06/24 17:27 Source: patient Mode of arrival: ambulatory Limitations: no limitations History of Present Illness HPI Narrative: 68 y/o male with lung cancer (s/p RUL lobectomy) presented for c/o cough x10 days. Endorses intermittent fever, Cough is productive. Denies sob, wheezing, n/v/d. Scheduled for PET scan tomorrow. Not taking any meds for cough. Daily smoker. Related Data Home Medications ?Medication ?Instructions ?Recorded ?Confirmed ?Last Taken ?Type cyclobenzaprine 10 mg tablet 10 mg PO TID PRN Spasms 07/15/19 05/06/24 Unknown History fluticasone propionate 50 2 spray intranasal DAILY 07/15/19 05/06/24 Unknown History mcg/actuation nasal spray,suspension (Flonase Allergy Relief) gabapentin 300 mg capsule 300 mg PO TID PRN Pain 07/15/19 05/06/24 Unknown History hydrochlorothiazide 25 mg tablet 25 mg PO DAILY 12/09/20 05/06/24 07/11/23 History acetaminophen 500 mg capsule 500 mg PO TID PRN Pain 04/08/21 05/06/24 Unknown History docusate sodium 100 mg capsule 100 mg PO BID PRN Constipation 04/08/21 05/06/24 Unknown History (Dulcolax Stool Softener (docusate)) ranolazine 500 mg tablet,extended 500 mg PO Q12H 08/04/21 05/06/24 Unknown History release,12 hr tamsulosin 0.4 mg capsule 0.4 mg PO DIRECTED 10/13/23 05/06/24 Unknown History carvedilol 12.5 mg tablet 25 mg PO Q12H 10/16/23 05/06/24 Unknown History folic acid 1 mg tablet 1 mg PO DAILY 11/14/23 05/06/24 Unknown History Allergies Allergy/AdvReac Type Severity Reaction Status Date / Time morphine Allergy Intermediate Vomiting Verified 05/06/24 16:40 spironolactone Allergy Intermediate Hives Verified 05/06/24 16:40 Review of Systems Review of Systems: per HPI All systems reviewed & are unremarkable except as noted in HPI and below PMFSH Past Medical History Medical History (Updated 05/06/24 @ 17:39 by Kathrine Encinas APRN) Adenocarcinoma, lung AAA (abdominal aortic aneurysm) Allergies Chronic back pain Erectile dysfunction Frozen shoulder Hypertension Surgical History Surgical History History of back surgery Multiple H/O shoulder surgery Left 05/2008 Family History Family History Father Malignant neoplasm of prostate Other Cerebrovascular accident Diabetes mellitus Family history of arthritis Family history of cardiovascular disease Family history of kidney disease Family history of malignant neoplasm Hypertension Social History Social History Smoking packs per day: 1 Smoking cigarettes per day: 20.0 Years smoked: 51 Smoking pack-years: 51.00 Smoking status: Former smoker Tobacco type: cigarettes Smoking end date: 11/07/23 Additional smoking assessment comments: CURRENTLY SMOKES 10 CIGARETTES IN 5 DAYS Alcohol intake: former Substance use: never Substance use type: does not use Lack of Transportation: No Lack of Food: Never True Current Housing: I Have Housing Concerned About Future Housing: No Difficulty Paying Gas/Electric Bills: No Difficulty Paying for Meds: No Currently Unemployed: No Education: Master's Degree or Higher Difficulty w/ Childcare or Family Care: No Living arrangements: with family Spiritual care concerns: No Comments At time of signature, I have reviewed and agree with nursing past medical, surgical, social and family history unless otherwise noted. Please see nursing chart for further information. There is no relevant family history pertinent to the presenting complaint Exam Narrative: GENERAL: chronically ill-appearing, in no acute distress. EYES: EOMI. No redness or drainage. Conjunctivae normal. ENT: Mucous membranes pink and moist. rhinorrhea. CHEST: No respiratory distress. Diminished to all chapa; absent RUL. HEART: Regular rate and rhythm. No murmur appreciated. ABDOMEN: Soft, nontender, nondistended, normal active bowel sounds. SKIN: Warm, dry, no rash. Capillary refill normal. Normal skin turgor. NEURO: Alert and oriented x3. Gait steady. PSYCH: Normal affect. Course Course Emergency Course: Patient is aware of diagnosis, understands and agrees to treatment plan. Anticipatory guidance given. Patient agrees to follow-up as directed and is aware of reasons to seek care at the emergency department. Portions of this record may have been created with voice recognition software Level of Care: Express Care Visit Vital Signs Vital signs: Vital Signs Temperature 97.5 F L 05/06/24 16:30 Pulse Rate 95 05/06/24 16:30 Respiratory Rate 18 05/06/24 16:30 Blood Pressure 110/81 05/06/24 16:30 Pulse Oximetry 98 05/06/24 16:30 Oxygen Delivery Room Air 05/06/24 16:30 Temperature 97.5 F L 05/06/24 16:30 Pulse Rate 95 05/06/24 16:30 Respiratory Rate 18 05/06/24 16:30 Blood Pressure 110/81 05/06/24 16:30 Pulse Oximetry 98 05/06/24 16:30 Oxygen Delivery Room Air 05/06/24 16:30 MDM - URI/Sore Throat MDM Narrative Medical decision making narrative: Discussed physical exam findings. Advised supportive measures and signs/symptoms to go to the ER. Pt is appropriate for outpt treatment and f/u. Differential Diagnosis Differential diagnosis: Likely upper respiratory infection, viral infection, bronchitis and other (pneumonia) Lab Data Labs: Lab Results 05/06/24 Range/Units 17:03 POC Influenza A Ag Negative (Negative) POC Influenza B Ag Negative (Negative) POC SARS CoV-2 Ag Negative (Negative) Discharge Plan Discharge Clinical Impression: Bronchitis Patient Disposition: Home, Self-Care Condition: Stable Instructions: Antibiotic Form, Acute Bronchitis (ED) Additional Instructions: Acute bronchitis can be contagious because it is usually caused by infection with a virus or bacteria. It is usually for a few days but you can be contagious for up to one week. Avoid crowds until you do not have a fever and symptoms are improved Take medication as directed Recommend Flonase spray and Zyrtec (or Claritin/Phyllis) over the counter Cough syrup may cause drowsiness; avoid driving or take it at night time. Tylenol 1000mg every 8 hours as needed for pain Symptomatic treatment includes: rest, fluids, and increase humidity of the air at home. Follow up with your primary care provider as needed in 1 week Go to the ER for worsening symptoms or concerns Patient Language: Turkmen Prescriptions: New azithromycin [Zithromax Z-Nick] 250 mg tablet See Rx Instructions .ROUTE .COMPLEX Qty: 6 0RF Rx Instructions: For 250 mg dose pack: take 500 mg today (day 1), then 250 mg for 4 days (days 2-5) prednisone 50 mg tablet 50 mg PO DAILY Qty: 5 0RF No Action tamsulosin 0.4 mg capsule 0.4 mg PO DIRECTED cyclobenzaprine 10 mg tablet 10 mg PO TID PRN (Reason: Spasms) fluticasone propionate [Flonase Allergy Relief] 50 mcg/actuation spray,suspension 2 spray NASAL DAILY Rx Instructions: administer into each nostril gabapentin 300 mg capsule 300 mg PO TID PRN (Reason: Pain) ranolazine 500 mg tablet extended release 12 hr 500 mg PO Q12H Rx Instructions: PRESCRIBED BY CARDIOLOGY carvedilol 12.5 mg tablet 25 mg PO Q12H Rx Instructions: must administer with a meal/food hydrocodone-acetaminophen 10-325 mg tablet 1 tablet PO .4-6H PRN (Reason: pain) Qty: 42 0RF eszopiclone 2 mg tablet 2 mg PO QHS Qty: 1 0RF Rx Instructions: Bring with you to the sleep lab and administer for insomnia folic acid 1 mg tablet 1 mg PO DAILY hydrochlorothiazide 25 mg tablet 25 mg PO DAILY aspirin [Children's Aspirin] 81 mg Tablet,Chewable 81 mg PO DAILY@0800 Qty: 30 0RF atorvastatin 40 mg Tablet 40 mg PO DAILY Qty: 30 3RF nitroglycerin [Nitrostat] 0.4 mg Tablet, Sublingual 0.4 mg sublingual Q5MIN PRN (Reason: Chest Pain) Qty: 30 0RF docusate sodium [Dulcolax Stool Softener (dss)] 100 mg Capsule 100 mg PO BID PRN (Reason: Constipation) acetaminophen 500 mg Capsule 500 mg PO TID PRN (Reason: Pain) Stiolto Respimat 2.5-2.5 mcg/actuation mist See Rx Instructions .ROUTE .COMPLEX Qty: 4 6RF Dose Instruction: INHALE 2 PUFFS BY MOUTH EVERY DAY Rx Instructions: INHALE 2 PUFFS BY MOUTH EVERY DAY albuterol sulfate 90 mcg/actuation HFA aerosol inhaler 2 inh inhalation Q4-6H PRN (Reason: shortness of breath or wheezing) Qty: 8.5 3RF lisinopril 30 mg tablet 30 mg PO DAILY Qty: 90 0RF Rx Instructions: DUE FOR APPOINTMENT IN MAY Follow-up/Referrals: PHYSICIAN,GRAPHIC ART SALES REPRESENTATIVE [Primary Care Provider] -
== END 2024-05-06 17:43 | disposition home or self-care (01) ==
PROVIDERS: Emergency Provider Nurse Practitioner Family
DX: J40 Bronchitis, not specified as acute or chronic (principal); Z20.822 Contact with and (suspected) exposure to COVID-19; I10 Essential (primary) hypertension; Z85.118 Personal history of other malignant neoplasm of bronchus and lung; Z90.2 Acquired absence of lung [part of]; Z87.891 Personal history of nicotine dependence
CPT/HCPCS: 87426; 87804; 99213; G0463

== ENCOUNTER 2024-05-07 08:50 | Outpatient (CLI) | payer MEDICARE, SELFPAY ==
--- NOTE | ~2024-05-07 | PE_ITS ---
EXAMINATION: PET skull to mid thigh DATE: 05/07/2024 11:08 INDICATION: Malignant neoplasm of lung. TECHNIQUE: Blood glucose level was 126 mg/dL. 10.676 mCi of 18-fluorodeoxyglucose (18-FDG) was admini stered i.v. Low dose computed tomography (CT) images were acquired from the base of the brain to the proximal thighs for attenuation correction and anatomic localization. Automated exposure control was employed. Dose-length product (DLP) was 1203 mGy-cm. Positron emission tomography (PET) images were a cquired in the same distribution. COMPARISON: PET/CT 07/25/2023, chest CT 04/16/2024 FINDINGS: Head/neck: There are no pathologically enlarged lymph nodes. Chest: There is mild emphysema. There are changes of right upper lobectomy. There are four pleural-ba sed masses in right thorax with increased activity. For example, there is a 2.1 cm nodule in right lo wer lobe at the pleura with maximum SUV of 8.9. There are airspace opacities and centrilobular nodule s in left upper lobe and airspace opacities in anteromedial basal segment left lower lobe with increa sed activity, consistent with pneumonia. No pleural effusion. The heart size is normal. There are cor onary artery calcifications. No pericardial effusion. There is ectasia of ascending aorta measuring 4 .6 cm. There is a right internal jugular port with tip in superior vena cava. There are multiple heal ing right rib fractures. There is a 3.3 x 2.6 cm mass in right lateral chest wall with increased acti vity. There is a 6.0 x 1.6 cm mass with increased activity between the right rib fractures of the sca pula, most likely scapulothoracic bursitis. Abdomen/pelvis/proximal thighs: There is an 8 mm cyst in the liver. There are gallstones in the gallb ladder. Gallbladder distention may be secondary to fasting. There is a small sliding hiatal hernia. T he spleen, pancreas, and left adrenal gland are normal. There is a 2.0 cm mass in right adrenal gland measuring low attenuation, consistent with an adenoma. The kidneys are normal. The prostate is mildl y enlarged. There are bilateral inguinal hernias containing fat. The appendix is normal. There is jenniffer cified atherosclerosis of the aorta and many of the other arteries. There is a 3.8 cm fusiform aneury sm of infrarenal aorta. There are no pathologically enlarged lymph nodes. There is no free intraperit magallanes fluid. IMPRESSION: 1. Pleural-based masses with increased activity in right thorax and a mass in right lateral chest wal l with increased activity, consistent with metastatic disease. 2. Pneumonia involving left upper lobe and left lower lobe. 3. Mass again seen between multiple right-sided rib fractures and the inferior scapula, most likely s capulothoracic bursitis. Reviewed, dictated and finalized at location A. TRICAL REPAIRER IMPRESSION: 1. Pleural-based masses with increased activity in right thorax and a mass in r ight lateral chest wall with increased activity, consistent with metastatic dis ease. 2. Pneumonia involving left upper lobe and left lower lobe. 3. Mass again seen between multiple right-sided rib fractures and the inferior scapula, most likely scapulothoracic bursitis.
--- OUTSIDE RECORDS SUMMARY | 2024-05-07 09:11 | XMS_ITS ---
Author Organization [facility] Address [address] [place] [address] Care Team Providers Care Zigzag Topstitcher Name Role Phone Brant Wei DO Primary Care Provider Active Problems Problem Noted Date Diagnosed Date Pleural effusion on right 11/16/2023 Loculated pleural effusion 11/16/2023 Malignant neoplasm of upper lobe of right lung 0 11/15/2023 Port-A-Cath in place 11/15/[address] of the chest 11/15/2023 Hyperlipemia 09/26/2023 Lung mass 09/26/2023 Infrarenal abdominal aortic aneurysm (AAA) witho ut rupture 03/28/2022 Coronary artery disease of n ative artery of [place] heart with stable angina pectoris 01/18/2021 Essential hypertension 06/15/2020 Current Treatment and Therapy Plans No current plan information found. Past Treatment and Therapy Plans No past plan information found. Lifetime Dose Tracking * Chemical Lifetime Dose Automatic Entry Manual Entr y Effective Dose 6.23 mSv 6.23 mSv 0 mSv Total DLP 414.51 DLP 414.51 DLP 0 DLP CTDIvol Max 13.65 mGy 13.65 mGy 0 mGy
--- OUTSIDE RECORDS SUMMARY | 2024-05-07 09:11 | XMS_ITS | Referral Summary ---
Author Organization [facility] Address [address] [place] [address] Care Team Providers Care Greenhouse Superintendent Name Role Phone MigdaliaBrant stoner DO Primary Care Provider [phone] [facility],non-owned Affiliates and Associated Physician Practices is amultiple site organization consisting of ambulatory clinics and hospital sitesin [place], [place], [place] and [place]. This disclosure is being madepursuant to the Care Everywhere program and may not contain all information available regarding this patient. Last updated 17.[facility] [employer] Allergies No known active allergies Medications * Be aware that medications may not be up to date on this document. Alwaysverify current medications with the patient. Medication Sig Dispensed Refills Start Date End Date Status diclofenac sodium (VOLTAREN) 75 MG tablet Take 1 Tab by mouth 2 times daily. 60 Tab 4 03/17/2010 Active ibuprofen (MOTRIN) 800 MG tablet Active ranitidine (ZANTAC) 150 MG capsule Active cyclobenzaprine (FLEXERIL) 10 MG tablet A ctive lisinopril-hydrochlorot hiazide (PRINZIDE; ZESTORETIC) 20-12.5 MG tablet Active hydrocodone-acetaminoph en (ANEXSIA) 10-660 MG TABS tablet Active Active Problems Problem Noted Date Diagnosed Date Degeneration of lumbar or lumbosacral interverte bral disc 03/17/2010 Degeneration of cervical intervertebral disc 11/2009 Social History Tobacco Use Types Packs/Day Years Used Date Smoking Tobacco: Every Day Cigarettes 1 40 Smokeless Tobacco: Never Alcohol Use Standard Drinks/Week Comments No 0 (1 standard drink = 0.6 oz pur e alcohol) Sex and Gender Information Value Date Recorded Sex Assigned at Not on file Gender Identity Not on file Sexual Orientation Not on file Plan of Treatment Not on file Care Teams Greenhouse Superintendent Relationship Specialty Start Date End Date Brant Wei DO PCP - General Internal Medicine 03/17/10
--- OUTSIDE RECORDS SUMMARY | 2024-05-07 09:11 | XMS_ITS | Clinical Summary ---
Author Organization [facility] [address] Address [address] [place] [address] Care Team Providers Care Philanthropy Officer Name Role Phone Brant Wei DO Primary Care Provider [phone] Allergies Active Allergy Reactions Criticality Noted Date Comments Morphine Nausea And Vomiting Low 07/26/2023 Spironolactone Hives,Shortness of breath,Itching High 10/30/2020 Medications gabapentin (NEURONTIN) 300 mg capsule TAKE 1 CAPSULE EVERY 8 TO 12 HOURS NEEDED 03/30/20 20 Active HYDROcodone-a cetaminophen (NORCO) 10-325 mg per tablet TAKE 1 TABLET BY MOUTH EVERY 8 TO 12 HOUR NEEDED FOR PAIN 06/07/19 21 Active lisinopriL (PRINIVIL,ZES TRIL) 30 mg tablet Take 1 tablet (30 mg total) by mouth daily 06/05/19 21 Active aspirin 81 mg enteric coated tablet Take 1 tablet (81 mg total) by mouth daily Active cyclobenzapri ne (FLEXERIL) 10 mg tablet TAKE 1 TABLET BY MOUTH EVERY 8 TO 12 HOURS NEEDED 12/25/19 21 Active fluticasone propionate (FLONASE) 50 mcg/actuation nasal spray Administer 1 spray into each nostril daily Active bisacodyl EC (DULCOLAX EC) 5 mg EC tabletIndicat ions:constipa tion Take 1 tablet (5 mg total) by mouth daily as needed for constipation Active acetaminophen (TYLENOL) 500 mg tablet Take 1 tablet (500 mg total) by mouth every 6 (six) hours as needed for pain Active Stiolto Respimat 2.5-2.5 mcg/actuation inhaler Inhale 2 puffs daily 03/24/20 23 Active albuterol HFA (PROVENTIL HFA,VENTOLIN HFA,PROAIR HFA) 90 mcg/actuation inhaler INHALE 2 PUFFS EVERY 4 HOURS NEEDED FOR SHORTNESS OF BREATH OR FOR WHEEZE 03/24/20 23 Active nitroglycerin (NITROSTAT) 0.4 mg SL tablet TAKE 1 TABLET BY MOUTH UNDER TONGUE EVERY 5 MINUTES NEEDED CHEST PAIN, IF NOT RELIEF CALL 911 25 tablet 11 10/05/19 24 Active atorvastatin (LIPITOR) 40 mg tablet TAKE 1 TABLET BY MOUTH EVERY DAY 90 tablet 2 12/18/19 24 Active folic acid (FOLVITE) 1 mg tablet TAKE 1 TABLET (1 MG) BY MOUTH DAILY STARTING 7 DAYS BEFORE TREATMENT. 11/29/19 24 Active lidocaine-khurram locaine cream Apply quarter size amount to port side 30 mins before access. 11/07/19 24 Active naloxone (NARCAN) 4 mg/actuation spray,non-aer osol EMERGENCY USE ONLY: Administer 1 spray (4 mg) in one nostril one time. May repeat in alternating nostrils every 2-3 min until responsive or EMS arrives. 11/17/19 24 Active tamsulosin (FLOMAX) 0.4 mg extended release capsule Take 2 capsules (0.8 mg total) by mouth daily 10/03/19 24 Active dexAMETHasone (DECADRON) 4 mg tablet Take 1 tablet by mouth BID day before treatment, day of treatment, and day after treatment. 11/07/19 24 Active hydroCHLOROth iazide (HYDRODIURIL) 25 mg tablet TAKE 1 TABLET BY MOUTH EVERY DAY 90 tablet 2 03/20/20 24 Active carvediloL (COREG) 25 mg tablet Take 1 tablet (25 mg total) by mouth 2 (two) times a day 180 tablet 3 04/19/19 25 Active ranolazine ER (RANEXA) 500 mg 12 hr tabletIndicat ions:Coronary artery disease of [place] artery of [place] heart with stable angina pectoris (HCC) TAKE 1 TABLET BY MOUTH TWICE A DAY 180 tablet 3 04/29/19 25 Active ranolazine ER (RANEXA) 500 mg 12 hr tabletIndicat ions:Coronary artery disease of [place] artery of [place] heart with stable angina pectoris (HCC) TAKE 1 TABLET BY MOUTH TWICE A DAY 180 tablet 3 04/05/20 23 025 Discontinued carvediloL (COREG) 25 mg tablet Take 1 tablet (25 mg total) by mouth 2 (two) times a day 10/03/19 025 Discontinued(R eorder) Active Problems Problem Noted Date Diagnosed Date Morbid (severe) obesity due to excess calories 0 09/26/2022 Infrarenal abdominal aortic aneurysm (AAA) witho ut rupture 03/28/2022 Coronary artery disease of n ative artery of [place] heart with stable angina pectoris 01/18/2021 Tobacco abuse counseling 01/18/2021 WHALEN (dyspnea on exertion) 06/15/2020 Palpitations 06/15/2020 Essential hypertension 06/15/2020 Resolved Problems Problem Noted Date Diagnosed Date Resolved Date Other chest pain 07/13/2020 01/18/2021 Encounters Date Type Department Care Team Description 04/19/2024 Telephone [facility] [address] [place] [address] Acacia Reddy MD from Last 3 Months Surgical History Surgery Date Site/Laterality Comments BACK SURGERY SHOULDER SURGERY CARDIAC CATHETERIZATION Medical History Medical History Date Comments Arrhythmia Acid indigestion Arthritis Hypertension Family History Medical History Relation Name Comments Heart disease Father Alzheimer's disease Mother No Known Problems Sister Relation Name Status Comments Father (Age 86) Mother (Age 83) Sister Alive Social History Tobacco Use Types Packs/Day Years Used Date Smoking Tobacco: Every Day Cigarettes 0.1 50 Smokeless Tobacco: Never Tobacco Cessation:Ready to Q uit: Not Asked; Counseling Given: Not Answered Personal Safety Answer Date Recorded Getting School Help Needed Not on file 04/05 Sex and Gender Information Value Date Recorded Sex Assigned at Not on file Legal Sex Male 11:42 AM CDT Gender Identity Not on file Sexual Orientation Not on file Obstetrics History Last Filed Vital Signs Vital Sign Reading Time Taken Comments Blood Pressure 118/64 12/18/2023 8:58 AM CDT Pulse 75 12/18/2023 8:58 AM CDT Temperature 36.6 ??C (97.8 ??F) 07/01/2020 1:55 PM CD T Respiratory Rate - - Oxygen Saturation 96% 12/18/2023 8:58 AM CDT Inhaled Oxygen Concentration - - Weight 112.2 kg (247 lb 6.4 oz) 12/18/2023 8:58 AM CDT Height 182.9 cm (6') 12/18/2023 8:58 AM CDT Body Mass Index 33.55 12/18/2023 8:58 AM CDT Plan of Treatment Health Maintenance Due Date Last Done Comments Colon Cancer Screening-Colonoscopy 1955 Depression Screening 1956 Fall Risk Assessment 1956 Hepatitis C Screening 1956 Prostate Cancer Screening-PSA 1956 Pneumococcal vaccine 65+ (1 of 2 - PCV) 1962 DTaP/Tdap/Td Vaccine (1 - Tdap) 11/22/1967 Hepatitis B Screening 1974 Zoster Vaccine (1 of 2) 2006 Well Visit 65+ 2021 Influenza Vaccine (#1) 2023 02/09/2019, 2018 Abdominal Aortic Aneurysm (A AA) Screen Completed 12/18/2023, 06/12/2023, 10/04/2022, Additional history exists Insurance [employer] Care Teams Philanthropy Officer Relationship Specialty Start Date End Date Brant Wei DO PCP - General Internal Medicine 11/16/16
--- OUTSIDE RECORDS SUMMARY | 2024-05-07 09:11 | XMS_ITS | Clinical Summary ---
Author Organization [facility] puja [facility] Address [address] [facility] [place] [address] Care Team Providers Care Contact Lens Lathe Operator Name Role Phone Corryolena Brant Nii GERMAN Primary Care Provider Allergies Active Allergy Reactions Criticality Noted Date Comments Morphine Nausea and Vomiting Low 07/26/2023 Spironolactone Hives,Itching,Shortn ess of Breath/Wheezing High 10/30/2020 Medications albuterol sulfate HFA 90 mcg/actuation aerosol inhaler INHALE 2 PUFFS EVERY 4 HOURS NEEDED FOR SHORTNESS OF BREATH OR FOR WHEEZE 3 Active aspirin (ECOTRIN EC) 81 mg Tablet, Delayed Release (E.C.) Take 81 mg by mouth daily. Active atorvastatin (LIPITOR) 40 mg tablet Take 1 Tablet by mouth daily. 3 Active cyclobenzaprine (FLEXERIL) 10 mg tablet TAKE 1 TABLET BY MOUTH EVERY 8 TO 12 HOURS NEEDED 1 Active fluticasone propionate (FLONASE) 50 mcg/spray [place], Suspension nasal inhaler Administer 1 [place] in each nostril daily. Active nitroglycerin (NITROSTAT) 0.4 mg Tablet, Sublingual TAKE 1 TABLET BY MOUTH UNDER TONGUE EVERY 5 MINUTES NEEDED CHEST PAIN, IF NOT RELIEF CALL 911 3 Active ranolazine ER (RANEXA) 500 mg Extended Release 12 hour tablet Take 1 Tablet by mouth 2 times daily. 3 Active bisacodyL (DULCOLAX) 5 mg Delayed Release tablet Take 5 mg by mouth 1 time daily as needed for Constipation. Active tiotropium-oloda teroL (Stiolto Respimat) 2.5-2.5 mcg/actuation metered inhaler Take 2 Puffs by inhalation daily. Active carvediloL (COREG) 25 mg tablet Take 1 Tablet (25 mg) by mouth 2 times daily. 60 Tablet 2 4 Active tamsulosin (FLOMAX) 0.4 mg capsule Take 2 Capsules (0.8 mg) by mouth daily after supper. 30 Capsule 1 4 Active gabapentin (NEURONTIN) 300 mg capsule Take 300 mg by mouth 3 times daily. 4 Active HYDROcodone-acet aminophen (NORCO) 10-325 mg TabletIndication s:Malignant neoplasm of lung, unspecified laterality, unspecified part of lung (CMS/HCC) Take 1 Tablet by mouth every 4 hours as needed for Pain, Moderate. Max Daily Amount: 6 Tablets 60 Tablet 4 Active ondansetron (ZOFRAN ODT) 8 mg Tablet, Rapid Dissolve Dissolve 1 tablet on top of tongue then swallow with saliva every 8 hours as needed for nausea or vomiting 30 Tablet 1 4 Active lidocaine-priloc panfilo (EMLA) 2.5-2.5 % Cream Apply quarter size amount to port side 30 mins before access. 30 Gram 1 4 Active dexAMETHasone (DECADRON) 4 mg tablet Take 1 tablet by mouth BID day before treatment, day of treatment, and day after treatment. 6 Tablet 3 4 Active naloxone (NARCAN) 4 mg/spray [place], Non-Aerosol EMERGENCY USE ONLY: Administer 1 spray (4 mg) in one nostril one time. May repeat in alternating nostrils every 2-3 min until responsive or EMS arrives. 2 Each 3 4 Active Active Problems Problem Noted Date Diagnosed Date Pleural effusion on right 11/16/2023 Loculated pleural effusion 11/16/2023 Malignant neoplasm of upper lobe of right lung 0 11/15/2023 Port-A-Cath in place 11/15/[address] of the chest 11/15/2023 Hyperlipemia 09/26/2023 Lung mass 09/26/2023 Infrarenal abdominal aortic aneurysm (AAA) witho ut rupture 03/28/2022 Coronary artery disease of n ative artery of [place] heart with stable angina pectoris 01/18/2021 Essential hypertension 06/15/2020 Encounters Date Type Department Care Team Description 05/02/2024 External Device Data STL ABSTRACTION Provider, Abstract 04/30/2024 Abstract [facility] - [place] Deidra Nol[address] Jon Gilman MD 04/29/2024 Orders Only [facility] - [place] [address] Jon Gilman MD Malignant neoplasm of lung, unspecified laterality, unspecified part of lung (CMS/HCC) 04/25/2024 8:45 AM CONCRETE PRODUCTS MACHINE OPERATOR Office Visit [facility] - [place] Deidra [place] [address] Jon Gilman MD Malignant neoplasm of lung, unspecified laterality, unspecified part of lung (CMS/HCC) (Primary Dx) 04/25/2024 Orders Only [facility] - [place] De[place] [address] Jon Gilman MD 04/18/2024 Orders Only [facility] - [place] Deidra N[place] [address] Jon Gilman MD 04/15/2024 Orders Only [facility] - [place] Deidra Nol[place] [address] Jon Gilman MD Malignant neoplasm of lung, unspecified laterality, unspecified part of lung (CMS/HCC) 04/01/2024 Orders Only [facility] - [place] De[place]ra N[place] [address] Jon Gilman MD Malignant neoplasm of lung, unspecified laterality, unspecified part of lung (CMS/HCC) 03/18/2024 Orders Only [facility] - [place] De[place]ra [place] [address] Jon Gilman MD Malignant neoplasm of lung, unspecified laterality, unspecified part of lung (CMS/HCC) 03/14/2024 9:00 AM CONCRETE PRODUCTS MACHINE OPERATOR Office Visit [facility] H[facility]ology [facility] [address] [place] [address] Jon Gilman MD Malignant neoplasm of lung, unspecified laterality, unspecified part of lung (CMS/HCC) (Primary Dx) 03/04/2024 Orders Only [facility] - [place] [address] [place] [address] Jon Gilman MD Malignant neoplasm of lung, unspecified laterality, unspecified part of lung (CMS/HCC) 02/26/2024 10:16 AM CONCRETE PRODUCTS MACHINE OPERATOR - 02/26/2024 11:59 PM CONCRETE PRODUCTS MACHINE OPERATOR Hospital Encounter [facility] Services [id number] [place] [address] Jon Gilman MD Discharge Disposition: Home or Self Care 02/23/2024 Telephone [facility] [address] [place] [address] Jon Gilman MD [facility] 02/19/2024 Orders Only [facility] - [place] [address] [place] [address] Jon Gilman MD Malignant neoplasm of lung, unspecified laterality, unspecified part of lung (CMS/HCC) 02/16/2024 9:52 AM CONCRETE PRODUCTS MACHINE OPERATOR - 02/16/2024 11:59 PM CONCRETE PRODUCTS MACHINE OPERATOR Hospital Encounter [facility] Services [id number] [place] [address] Fabiana Fonseca MD Discharge Disposition: Home or Self Care 02/15/2024 10:00 AM CONCRETE PRODUCTS MACHINE OPERATOR Office Visit [facility] [address] [place] [address] Fabiana Fonseca MD Malignant neoplasm of lung, unspecified laterality, unspecified part of lung (CMS/HCC) (Primary Dx) 02/15/2024 Telephone [facility] - [place] [address] [place] [address] Fabiana Fonseca MD add on testing 02/15/2024 Orders Only [facility] - [place] [address] [place] [address] Fabiana Fonseca MD Malignant neoplasm of lung, unspecified laterality, unspecified part of lung (CMS/HCC) (Primary Dx) 02/05/2024 Orders Only [facility] - [place] [facility] [address] [place] [address] Jon Gilman MD Malignant neoplasm of lung, unspecified laterality, unspecified part of lung (CMS/HCC) from Last 3 Months Family History Medical History Relation Name Comments Throat Cancer Daughter 2 Cancer Father Diabetes Father Heart Disease Father Relation Name Status Comments Daughter 1 Alive Daughter 2 Daughter 3 Father Mother Sister Alive Son Alive Social History Tobacco Use Types Packs/Day Years Used Date Smoking Tobacco: Some Days Cigarettes 0.2 0.7 Started: 07/28/2023; Last attempted to quit: 10/06/2023 Smokeless Tobacco: Never Tobacco Cessation:Ready to Q uit: Not Asked; Counseling Given: Not Answered Comments:Couple puffs of a cigarettes a day Alcohol Use Standard Drinks/Week Comments Never 0 (1 standard drink = 0.6 oz pur e alcohol) Feeling Safe Answer Date Recorded Are you in a relationship wi th someone who hurts you emotionally and/or physically? No 11/15/2023 Food Insecurity Answer Date Recorded Social/Environmental Concerns No concerns Transportation Needs Answer Date Record ed Social/Environmental Concerns No concerns Housing Stability Answer Date Recorded Social/Environmental Concerns No concerns Utility Needs Answer Date Recorded Social/Environmental Concerns No concerns Sex and Gender Information Value Date Recorded Sex Assigned at Not on file Legal Sex Male 2:50 PM CDT Gender Identity Not on file Sexual Orientation Not on file Last Filed Vital Signs Vital Sign Reading Time Taken Comments Blood Pressure 139/79 04/25/2024 8:35 AM CONCRETE PRODUCTS MACHINE OPERATOR Pulse 76 04/25/2024 8:35 AM CONCRETE PRODUCTS MACHINE OPERATOR Temperature 36.1 ??C (97 ??F) 04/25/2024 8:35 AM CONCRETE PRODUCTS MACHINE OPERATOR Respiratory Rate 20 04/25/2024 8:35 AM CONCRETE PRODUCTS MACHINE OPERATOR Oxygen Saturation 94% 04/25/2024 8:35 AM CONCRETE PRODUCTS MACHINE OPERATOR Inhaled Oxygen Concentration - - Weight 108 kg (238 lb) 04/25/2024 8:35 AM CONCRETE PRODUCTS MACHINE OPERATOR Height 180.3 cm (5' 11 ) 11/15/2023 9:36 PM CDT Body Mass Index 33.19 11/15/2023 9:36 PM CDT Plan of Treatment Upcoming Encounters Date Type Department Care Team (Late st Contact Info) Description 05/14/2024 4:30 PM CONCRETE PRODUCTS MACHINE OPERATOR Telephone Check Up [facility] - [place] [address] [facility] [address] [place] [address] Jon Gilman MD [address] [facility] [address] [place] [address] Health Maintenance Due Date Last Done Comments Pre-Diabetes and Diabetes Screening 1956 DTAP/TDAP/TD VACCINES (1 - Tdap) 11/22/1975 PNEUMOCOCCAL VACCINE 65+ YEARS (1 of 2 - PCV) 11/21/18 76 COLORECTAL SCREENING 2001 Colorectal Cancer Screening 2001 FIT-DNA Q 3 years 2001 FIT/FOBT Q 1 year 2001 Flex Sig/CT Colonography Q 5 years 2001 ZOSTER VACCINE (1 of 2) 2006 RSV VACCINE (60+ or ) (1 - Risk 60-74 years 1-dose series) 2016 Abdominal Aortic Aneurysm (AAA) Screening 2021 INFLUENZA VACCINE (#1) 2023 Medical Devices Implanted Type Area Cylinder Handler Device Identifier Shelf Expiration Date Model / Serial / Lot Clip Ligating Horizon Med Ti [id number] - Csc - [id number] Implanted:Qty : 3 on 09/26/2023 by Hu Alberts MD at [facility] Clip Right: Lung TELEFLEX- WECK CLOSURE SYS 08/30/2027 [id number] / / [id number] Clip Ligating Horizon Med Ti [id number] - Csc - [id number] Implanted:Qty : 1 on 09/26/2023 by Hu Alberts MD at [facility] Clip Right: Lung TELEFLEX- WECK CLOSURE SYS 08/30/2027 [id number] / / [id number] Clip Ligating Horizon Med Ti [id number] - Csc - [id number] Implanted:Qty : 1 on 09/26/2023 by Hu Alberts MD at [facility] Clip Right: Lung TELEFLEX- WECK CLOSURE SYS 08/30/2027 [id number] / / [id number] Agent Hemostat Surgicel 4x8in 1952s - [id number] Implanted:Qty : 1 on 09/26/2023 by Hu Alberts MD at [facility] Hemostatic Right: Lung [employer] 02/08/2028 [id number] / / [id number] Sealant Progel Pleural 4ml [id number] - [id number] Implanted:Qty : 1 on 09/26/2023 by Hu Alberts MD at [facility] Tissue Right: Lung BARD DAVOL [id number] 09/14/2024 [id number] / / [id number] Procedures Procedure Name Priority Date/Time Associated Diagnosis Comments CBC WITH DIFFERENTIAL Routine 04/25/2024 3:41 PM CONCRETE PRODUCTS MACHINE OPERATOR BASIC METABOLIC PANEL Routine 04/24/2024 3:44 PM CONCRETE PRODUCTS MACHINE OPERATOR CT CHEST W CONTRAST Routine 04/16/2024 1 2:48 PM CONCRETE PRODUCTS MACHINE OPERATOR [facility] Routine 03/24/2024 5:35 PM CONCRETE PRODUCTS MACHINE OPERATOR Malignant neoplasm of lung, unspecified laterality, unspecified part of lung (CMS/HCC) CBC WITH DIFFERENTIAL Routine 03/14/2024 9:19 AM CONCRETE PRODUCTS MACHINE OPERATOR BASIC METABOLIC PANEL Routine 03/14/2024 8:35 AM CONCRETE PRODUCTS MACHINE OPERATOR PATHOLOGY Pathology 02/26/2024 10:17 AM CONCRETE PRODUCTS MACHINE OPERATOR Encounter for laboratory test [facility] DNA AND RNA Routine 02/23/2024 8:22 AM CONCRETE PRODUCTS MACHINE OPERATOR Malignant neoplasm of lung, unspecified laterality, unspecified part of lung (CMS/HCC) [facility] NORMAL BLOOD Routine 02/23/2024 8:22 AM CONCRETE PRODUCTS MACHINE OPERATOR Malignant neoplasm of lung, unspecified laterality, unspecified part of lung (CMS/HCC) [facility] DNA AND RNA SOLID TUMOR Routine 02/23/2024 8:22 AM CONCRETE PRODUCTS MACHINE OPERATOR Malignant neoplasm of lung, unspecified laterality, unspecified part of lung (CMS/HCC) BASIC METABOLIC PANEL Routine 02/15/2024 11:53 AM CONCRETE PRODUCTS MACHINE OPERATOR CBC WITH DIFFERENTIAL Routine 02/15/2024 11:52 AM CONCRETE PRODUCTS MACHINE OPERATOR from Last 3 Months Results * CBC WITH DIFFERENTIAL (04/25/2024 3:41 PM CONCRETE PRODUCTS MACHINE OPERATOR) Only the most recent of3 resultswithin the time period is included. Blood us Jon Gilman MD HEMATOLOGY ORDERABLES Final Res ult * BASIC METABOLIC PANEL (04/24/2024 3:44 PM CONCRETE PRODUCTS MACHINE OPERATOR) Only the most recent of3 resultswithin the time period is included. Blood us Jon Gilman MD CHEMISTRY ORDERABLES Final Resu lt * CT CHEST W CONTRAST (04/16/2024 12:48 PM CONCRETE PRODUCTS MACHINE OPERATOR) Anatomical Region Laterality Modality Chest Other us Jon Gilman MD CT ORDERABLES Final Result * [facility] (03/24/2024 5:35 PM CONCRETE PRODUCTS MACHINE OPERATOR) Reason for Study To identify mutations relevant to patient's cancer. 03/24/2024 5:35 PM CONCRETE PRODUCTS MACHINE OPERATOR [facility] Genetic Diseases Assessed Cancer 03/24/2024 5:35 PM CONCRETE PRODUCTS MACHINE OPERATOR [facility] Description of Ranges of DNA Sequences Examined 105 gene liquid biopsy 03/24/2024 5:35 PM CONCRETE PRODUCTS MACHINE OPERATOR [facility] Overall Interpretation positive 03/24/2024 5:35 PM CONCRETE PRODUCTS MACHINE OPERATOR [facility] [email or web address] 03/24/2024 5:35 PM CONCRETE PRODUCTS MACHINE OPERATOR [facility] Comment:[facility] link Low Coverage Regions JAK1, SPOP 03/24/2024 5:35 PM CONCRETE PRODUCTS MACHINE OPERATOR [facility] Therapy Count 1 03/24/2024 5:35 PM CONCRETE PRODUCTS MACHINE OPERATOR [facility]: Potential Therapy 1 Gene: 795^CESAR^HGNC Variant: p.[id number] Match Type: snvIndel Match Type Description: CESAR p.U5865N Agent: Olaparib Drug Class: PARP Inhibitor Tissue: Prostate Cancer Association: Response Evidence Status: Consensus Evidence ID: NCCN KDB Variant: Akel-xn-pmcpn ion Label: FDA Off Label FDA Approved?: Yes On label?: No 03/24/2024 5:35 PM CONCRETE PRODUCTS MACHINE OPERATOR [facility] Trial Count 3 03/24/2024 5:35 PM CONCRETE PRODUCTS MACHINE OPERATOR [facility]: Clinical Trial Match 1 Clinical Trial NCT ID: [id number] Clinical Trial Title: Tumor-Agnosti c Precision Immuno-Oncolo gy and Somatic Targeting Rational for You (TAPISTRY) Platform Study Clinical Trial URL: https://clini caltrials.gov /ct2/show/NCT 39694582 Clinical Phase: Phase 2 Clinical Trial Matches: CESAR p.A2725F mutation Clinical Trial Distance and Location: [address] [facility], [place] 03/24/2024 5:35 PM CONCRETE PRODUCTS MACHINE OPERATOR [facility]: Clinical Trial Match 2 Clinical Trial NCT ID: [id number] Clinical Trial Title: A Study of FVG9096 for the Treatment of Advanced or Metastatic Solid Tumors Clinical Trial URL: https://clini caltrials.gov /ct2/show/NCT 36713062 Clinical Phase: Phase 1/Phase 2 Clinical Trial Matches: CESAR p.F1324S mutation Clinical Trial Distance and Location: [address], [place], [place] 03/24/2024 5:35 PM CONCRETE PRODUCTS MACHINE OPERATOR [facility]: Clinical Trial Match 3 Clinical Trial NCT ID: [id number] Clinical Trial Title: Study of ATRN-119 in Patients with Advanced Solid Tumors Clinical Trial URL: https://clini caltrials.gov /ct2/show/NCT 96811449 Clinical Phase: Phase 1/Phase 2 Clinical Trial Matches: CESAR p.A2065R mutation, TP53 p.R248Q mutation, TP53 p.I195T mutation Clinical Trial Distance and Location: [address] [place] [address] 03/24/2024 5:35 PM CONCRETE PRODUCTS MACHINE OPERATOR [facility] Tumor Mutational [place] 4.3 m/MB 03/24/2024 5:35 PM CONCRETE PRODUCTS MACHINE OPERATOR [facility] Microsatellite Instability Note MSI-High not detected 03/24/2024 5:35 PM CONCRETE PRODUCTS MACHINE OPERATOR [facility] Blood specimen (specimen) 03/18/2024 2:34 PM CONCRETE PRODUCTS MACHINE OPERATOR Narrative This result has genomic variants that were not included in this document. us Jon Gilman MD MOLECULAR ORDERABLES Final Resu lt [facility] [address] [facility], [address] [place], [place] [address] [place] [address] [facility] [address] [facility], [address] [place] [address] * PATHOLOGY (02/26/2024 10:17 AM CONCRETE PRODUCTS MACHINE OPERATOR) CASE REPORT Surgical Pathology Report ? Case: [id number] ? Authorizing Provider: ??Jon Gilman MD ? Collected: ? 02/26/2024 10:17 AM ? Ordering Location: ? [facility] ?? Received: ?02/26/2024 10:18 AM ? Services [address] [place] ? Pathologist: ? Amelia Galvez, ? MD ? Specimen: ?Other, specify ? 10:59 AM [facility] FINAL DIAGNOSIS A request for [facility] was received on 02/26/[address] Jon Gilman. This test was performed on tissue from case [id number]. The case report, slides, and blocks for this case were retrieved from archives. The pathologist reviewed the original pathology report, examined candidate slides, and selected the most appropriate block (D12). This selected material was forwarded to [facility] where the test was performed. The final report will be issued directly to the requesting physician. 10:59 AM [facility] ICAL INFORMATION Z01.89 - Encounter for laboratory test [ICD-10-CM] 10:59 AM [facility] COMMENT Special stain, immunohistochemical, and/or in situ hybridization results are interpreted with controls that demonstrate appropriate staining reactions. Note on use of immunohistochemistry reagents and in situ hybridization probes: These tests were developed and their performance characteristics determined by [facility] Department of Laboratory Medicine. It has not been cleared or approved by the U.S. Food and Drug Administration. The FDA has determined that such clearance or approval is not necessary. The test is used for clinical purposes. It should not be regarded as investigational or for research. This laboratory is certified to perform high complexity testing. Frozen section/operating room consultation, gross examination and dissection, and case sign out may have been performed in part or completely in the following laboratories: [facility], CLIA #[id number] [address] [place] [address] [facility], [place] #[id number] [address] [place] [address] [facility], CLIA #[id number] [address] [place] [address] This report was created with the [employer] voice-activated dictation system. Inherent to this system is the possibility of syntax, grammar, punctuation and other errors that could impact the interpretation of the report. If there are interpretative questions about aspects of this report, please contact the performing pathologist. 10:59 AM [facility] Tissue (Other, specify) 02/26/2024 10:17 AM CONCRETE PRODUCTS MACHINE OPERATOR 02/26/2024 10:18 AM CONCRETE PRODUCTS MACHINE OPERATOR Jon Gilman MD PATHOLOGY/CYTOLOGY ORDERABLES F inal Result [facility]# [id number] [address] [place] [id number] * [facility] NORMAL BLOOD (02/23/2024 8:22 AM CONCRETE PRODUCTS MACHINE OPERATOR) [facility] 02/23/2024 11:00 PM CONCRETE PRODUCTS MACHINE OPERATOR [facility] Comment:See NGS Report for R julian. Blood specimen (specimen) 02/23/2024 8:22 AM CONCRETE PRODUCTS MACHINE OPERATOR 02/23/2024 8:24 AM CONCRETE PRODUCTS MACHINE OPERATOR Jon Gilman MD MOLECULAR ORDERABLES Final Resu lt [facility] [address] [place] [address], [facility] [address] [place] [address] * [facility] DNA AND RNA SOLID TUMOR (02/23/2024 8:22 AM CONCRETE PRODUCTS MACHINE OPERATOR) Pathologist [facility] Reason for Study To identify somatic and germline mutations relevant to patient's cancer. 03/25/2024 10:15 PM CONCRETE PRODUCTS MACHINE OPERATOR [facility] Genetic Diseases Assessed Cancer 03/25/2024 10:15 PM CONCRETE PRODUCTS MACHINE OPERATOR [facility] Description of Ranges of DNA Sequences Examined 648 gene panel 03/25/2024 10:15 PM CONCRETE PRODUCTS MACHINE OPERATOR [facility] Overall Interpretation positive 03/25/2024 10:15 PM CONCRETE PRODUCTS MACHINE OPERATOR [facility] MSI Stable 03/25/2024 10:15 PM CONCRETE PRODUCTS MACHINE OPERATOR [facility] TMB 4.2 m/MB 03/25/2024 10:15 PM CONCRETE PRODUCTS MACHINE OPERATOR [facility] [email or web address] 03/25/2024 10:15 PM CONCRETE PRODUCTS MACHINE OPERATOR [facility] Comment:[facility] link PD-L1 Interpretation by 22C3 positive - high 03/25/2024 10:15 PM CONCRETE PRODUCTS MACHINE OPERATOR [facility] PD-L1 (22C3) Combined Positive Score 85 03/25/2024 10:15 PM CONCRETE PRODUCTS MACHINE OPERATOR [facility] PD-L1 (22C3) Tumor Proportion Score 70 % 03/25/2024 10:15 PM CONCRETE PRODUCTS MACHINE OPERATOR [facility] Amendment Notes XT.V4 THIS AMENDED REPORT IS BEING ISSUED TO ADD POTENTIAL GERMLINE SEQUENCING RESULTS AND RECATEGORIZE VARIANTS BASED ON TUMOR-NORMAL PAIRED ANALYSIS. A copy number gain in CKS1B was removed from the report. Variants of unknown significance were recategorized based on potential germline comparison. The tumor mutational burden (TMB) of this tumor-normal matched amendment is based on the tumor only analysis. 03/25/2024 10:15 PM CONCRETE PRODUCTS MACHINE OPERATOR [facility] Pertinent Negatives EGFR, KRAS, ALK, ROS1, RET, ERBB2 (HER2), BRAF 03/25/2024 10:15 PM CONCRETE PRODUCTS MACHINE OPERATOR [facility] Low Coverage Regions RXRA 03/25/2024 10:15 PM CONCRETE PRODUCTS MACHINE OPERATOR [facility] Therapy Count 3 03/25/2024 10:15 PM CONCRETE PRODUCTS MACHINE OPERATOR [facility]: Potential Therapy 1 Gene: 7029^MET^HGNC Variant: MET Copy number gain Match Type: cnv Match Type Description: MET Copy number gain Agent: Capmatinib Drug Class: MET Inhibitor Tissue: Non-Small Cell Lung Cancer Association: Response Evidence Status: Consensus Evidence ID: NCCN NCCN Associated Evidence: Consensus, Non-Small Cell Lung Cancer MSK Associated Evidence: MSK OncoKB, Level 2 Label: FDA Off Label FDA Approved?: Yes On label?: No 03/25/2024 10:15 PM CONCRETE PRODUCTS MACHINE OPERATOR [facility]: Potential Therapy 2 Gene: 7029^MET^HGNC Variant: MET Copy number gain Match Type: cnv Match Type Description: MET Copy number gain Agent: Tepotinib Drug Class: MET Inhibitor Tissue: Non-Small Cell Lung Cancer Association: Response Evidence Status: Consensus Evidence ID: NCCN NCCN Associated Evidence: Consensus, Non-Small Cell Lung Cancer MSK Associated Evidence: MSK OncoKB, Level 2 Label: FDA Off Label FDA Approved?: Yes On label?: No 03/25/2024 10:15 PM CONCRETE PRODUCTS MACHINE OPERATOR [facility]: Potential Therapy 3 Gene: 7029^MET^HGNC Variant: MET Copy number gain Match Type: cnv Match Type Description: MET Copy number gain Agent: Crizotinib Drug Class: ALK/ROS1 Inhibitor Tissue: Non-Small Cell Lung Cancer Association: Response Evidence Status: Consensus Evidence ID: NCCN NCCN Associated Evidence: Consensus, Non-Small Cell Lung Cancer MSK Associated Evidence: MSK OncoKB, Level 2 Label: FDA Off Label FDA Approved?: Yes On label?: No 03/25/2024 10:15 PM CONCRETE PRODUCTS MACHINE OPERATOR [facility] Trial Count 3 03/25/2024 10:15 PM CONCRETE PRODUCTS MACHINE OPERATOR [facility] Tempus: Clinical Trial Match 1 Clinical Trial NCT ID: [id number] Clinical Trial Title: A Study to Assess the Safety, Pharmacokinetics, and Efficacy of Intravenous (IV) ABBV-303, as Monotherapy and in Combination With IV Infused Budigalimab (ABBV-181), in Adults With Advanced Solid Tumors Clinical Trial URL: https://clinicalt rials.gov/ct2/sil [email or web address] Clinical Phase: Phase 1 Clinical Trial Matches: MET amplification Clinical Trial Distance and Location: [address] [place], [place] 03/25/2024 10:15 PM CONCRETE PRODUCTS MACHINE OPERATOR [facility] Tempus: Clinical Trial Match 2 Clinical Trial NCT ID: [id number] Clinical Trial Title: Study of ATRN-119 in Patients with Advanced Solid Tumors Clinical Trial URL: https://clinicalt rials.gov/ct2/sil [email or web address] Clinical Phase: Phase 1/Phase 2 Clinical Trial Matches: TP53 p.I251S mutation Clinical Trial Distance and Location: [address] [place], [place] 03/25/2024 10:15 PM CONCRETE PRODUCTS MACHINE OPERATOR [facility] Tempus: Clinical Trial Match 3 Clinical Trial NCT ID: [id number] Clinical Trial Title: Testing the Combination of Two Anti-cancer Drugs, Peposertib (M3814) and M1774 for Advanced Solid Tumors Clinical Trial URL: https://clinicalt rials.gov/ct2/sil [email or web address] Clinical Phase: Phase 1 Clinical Trial Matches: ARID2 p.V465fs mutation Clinical Trial Distance and Location: [address] [place], [place] 03/25/2024 10:15 PM CONCRETE PRODUCTS MACHINE OPERATOR [facility] xR Result 1 NEGATIVE Negative - This report is being issued to report the results of gene rearrangement and altered splicing analysis from RNA sequencing. No gene rearrangements nor reportable altered splicing events were identified from RNA sequencing. 03/25/2024 10:15 PM CONCRETE PRODUCTS MACHINE OPERATOR [facility] Germline Variant Note No potential germline variants were found in the limited set of genes on which we report. 03/25/2024 10:15 PM CONCRETE PRODUCTS MACHINE OPERATOR [facility] Tissue specimen (specimen) 02/23/2024 8:22 AM CONCRETE PRODUCTS MACHINE OPERATOR 02/27/2024 2:08 PM CONCRETE PRODUCTS MACHINE OPERATOR Narrative This result has genomic variants that were not included in this document. us Jon Gilman MD MOLECULAR ORDERABLES Edited Res ult - Final [facility] [address], [address] [place] [address], [facility] [address] [facility] [facility] [address] [facility], [address] [place] [address] from Last 3 Months Insurance ADVANTAGE CHOICE PPO Advance Directives For more information, please contact: [phone] * Full Code (Latest Code Status on File) Date Activated Date Inactivated Comments 11/15/2023 9:41 PM 11/17/2023 3:14 PM * Full Code Date Activated Date Inactivated Comments 09/26/2023 11:16 PM 10/03/2023 4:59 PM * Full Code Date Activated Date Inactivated Comments 09/26/2023 9:44 AM 09/26/2023 11:16 PM Care Teams Contact Lens Lathe Operator Relationship Specialty Start Date End Date Brant Wei DO [address] [address] PCP - General Internal Medicine 07/18/23
--- OUTSIDE RECORDS SUMMARY | 2024-05-07 09:11 | XMS_ITS | Clinical Summary ---
Author Organization [facility] Address [address] [place] [address] Care Team Providers Care Creative Services Specialist Name Role Phone MigdaliaBrant stoner DO Primary Care Provider [phone]- [phone] Source Comments [facility],non-owned Affiliates and Associated Physician Practices is amultiple site organization consisting of ambulatory clinics and hospital sitesin [place], [place], [place] and [place]. This disclosure is being madepursuant to the Care Everywhere program and may not contain all information available regarding this patient. Last updated 17.[facility] Allergies No known active allergies Medications * [...] Orientation Not on file Plan of Treatment Health Maintenance Due Date Last Done Comments COLKWABENA (AGES 45-75) - COL ON CA SCREENING 1956 COLON MONITORING 1956 COLONOSCOPY - COLON CA SCREENING 1956 CT COLONOGRAPHY - COLON CA SCREENING 1956 Colorectal Cancer Screening 1956 FIT - COLON CA SCREENING 1956 FLEX SIG - COLON CA SCREENING 1956 LIPID TESTING 1956 HEPATITIS C SCREENING 11/17/1974 DTAP/TDAP/TD VACCINES (1 - Tdap) 11/22/1975 PNEUMOCOCCAL VACCINE 50+ (1 of 2 - PCV) 11/22/1975 ZOSTER VACCINE (1 of 2) 2006 AAA SCREENING 2021 COVID-19 VACCINE (1 - 2023-2 5 season) 2023 INFLUENZA VACCINE (#1) 2023 DEPRESSION SCREENING 04/10/2024 MEDICARE AWV ? CALENDAR YEAR 2024 Respiratory Syncytial Virus (RSV) Vaccine Pt: or over 60 yrs (1 - 1-dose 75+ series) 11/22/2031 HEPATITIS B VACCINE Aged Out No longe r eligible based on patient's age to complete this topic HIB VACCINE Aged Out No longer eligi ble based on patient's age to complete this topic HPV VACCINE Aged Out No longer eligi ble based on patient's age to complete this topic MENINGOCOCCAL (Group B) VACCINE Aged Out No longer eligible based on patient's age to complete this topic MENINGOCOCCAL VACCINE Aged Out No flaco kiki eligible based on patient's age to complete this topic Care Teams Creative Services Specialist Relationship Specialty Start Date End Date Brant Wei DO PCP - General Internal Medicine 03/17/10
--- OUTSIDE RECORDS SUMMARY | 2024-05-07 09:11 | XMS_ITS | Referral Summary ---
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 (HCC) TAKE 1 TABLET BY MOUTH TWICE A DAY 180 tablet 3 01/20/20 25 Active ranolazine ER (RANEXA) 500 mg 12 hr tabletIndicat ions: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 (HCC) TAKE 1 TABLET BY MOUTH TWICE A DAY 180 tablet 3 04/05/20 23 025 Discontinued carvediloL (COREG) 25 mg tablet Take 1 tablet (25 mg total) by mouth 2 (two) times a day 10/03/19 24 025 Discontinued(R eorder) Active Problems Problem Noted Date Diagnosed Date Morbid (severe) obesity due to excess calories 0 09/26/2022 Infrarenal abdominal aortic aneurysm (AAA) witho ut rupture 03/28/2022 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
--- OUTSIDE RECORDS SUMMARY | 2024-05-07 09:11 | XMS_ITS | Patient Health Summary ---
Author Organization [facility] Address [address] [facility] [place] [address] Care Team Providers Care Guest Services Assistant Name Role Phone Brant Wei DO Primary Care Provider [phone]- [phone] Note from [facility],non-owned Affiliates and Associated Physician Practices is amultiple site organization consisting of ambulatory clinics and hospital sitesin [place], [place], [place] and [place]. This disclosure is being madepursuant to the Care Everywhere program and may not contain all information available regarding this patient. Last updated 17.[facility] Allergies No known active allergies Medications * Be aware that medications may not be up to date on this document. Alwaysverify current medications with the patient. * diclofenac sodium (VOLTAREN) 75 MG tablet(Started 03/17/2010) Take 1 Tab by mouth 2 times daily. 4 refills left * ibuprofen (MOTRIN) 800 MG tablet * ranitidine (ZANTAC) 150 MG capsule * cyclobenzaprine (FLEXERIL) 10 MG tablet * lisinopril-hydrochlorothiazide (PRINZIDE; ZESTORETIC) 20-12.5 MG tablet * hydrocodone-acetaminophen (ANEXSIA) 10-660 MG TABS tablet Active Problems Problem Noted Date Diagnosed Date [...] on file Sexual Orientation Not on file Care Teams Guest Services Assistant Relationship Specialty Start Date End Date Brant Wei DO PCP - General Internal Medicine 03/17/10
[2024-05-07 09:24] LABS: Glucose Point of Care 126 mg/dl (65-105)
== END 2024-05-07 08:51 | disposition home or self-care (01) ==
PROVIDERS: Visit Provider Internal Medicine Hematology & Oncology
DX: C34.11 Malignant neoplasm of upper lobe, right bronchus or lung (principal); R93.89 Abnormal findings on diagnostic imaging of other specified body structures; J18.1 Lobar pneumonia, unspecified organism
CPT/HCPCS: 78815; A9552

== ENCOUNTER 2024-06-27 09:23 | Outpatient (CLI) | payer MEDICARE, SELFPAY ==
--- NOTE | ~2024-06-27 | US_ITS ---
EXAMINATION: US bx st neck thorax DATE: 06/27/2024 11:06 INDICATION: Right lung cancer with FDG avid right chest wall mass concerning for metastatic disease TECHNIQUE: The procedure including the risks and benefits was discussed with the patient. Risks discu ssed included bleeding, allergic reaction and infection. The patient understood the risks and agreed to proceed. The skin overlying the inferior axillary lateral right chest wall was prepped and draped in usual sterile fashion. Anesthetic was administered with 1% lidocaine subcutaneously. An 18 gaug e core biopsy needle was advanced under continuous ultrasound observation to the lesion of interest. 4 core biopsy specimens were obtained. The needle was removed and the entry site was cleaned and dr essed. Post procedure ultrasound demonstrated no hemorrhage. FINDINGS: Ultrasound images demonstrate biopsy needle advanced into the right lateral chest wall mass of concern which measures 4.4 x 4.2 x 3.2 cm and appears hypoechoic with lobular margins. IMPRESSION: 1. Successful Ultrasound-guided biopsy of the 4.4 x 4.2 x 3.2 cm right lateral chest wall mass of con cern. Reviewed, dictated and finalized at location A. IMPRESSION: 1. Successful Ultrasound-guided biopsy of the 4.4 x 4.2 x 3.2 cm right lateral chest wall mass of concern.
--- OUTSIDE RECORDS SUMMARY | 2024-06-27 09:48 | XMS_ITS ---
Author Organization [facility] Address [address] [facility] [place] [address] Care Team Providers Care Finisher Special Stocks Name Role Phone Brant Wei DO Primary [...] artery disease of n ative artery of kaltag heart with stable angina pectoris 01/18/2021 Essential [...]
--- OUTSIDE RECORDS SUMMARY | 2024-06-27 09:48 | XMS_ITS | Clinical Summary ---
Author Organization [facility] Address [address] [facility] [place] [address] Care Team Providers Care Project Landscape Architect Name Role Phone MigdaliaBrant stoner DO Primary Care Provider +1- [phone] Source Comments [facility],non-owned Affiliates and Associated Physician Practices is amultiple site organization consisting of ambulatory clinics and hospital sitesin [place], [place], [place] and [place]. This disclosure is being madepursuant to the Care Everywhere program and may not contain all information available regarding this patient. Last updated 17.[facility] Allergies No known active allergies Medications * [...] (#1) 2023 DEPRESSION SCREENING 04/10/2024 MEDICARE AWV CALENDAR YEAR 2024 Respiratory Syncytial Virus (RSV) [...] to complete this topic MENINGOCOCCAL (Group B) VACC INE SHARED DECISION-MAKING Aged Out No longer eligibl e based on patient's age to complete this topic MENINGOCOCCAL GROUPS A/C/Y/W VACCINE Aged Out No longer eligible b ased on patient's age to complete this topic Care Teams Project Landscape Architect Relationship Specialty Start Date End Date Brant Wei DO PCP - General Internal Medicine 03/17/10
--- OUTSIDE RECORDS SUMMARY | 2024-06-27 09:48 | XMS_ITS | Encounter Summary ---
Author Organization [facility] Address [address] [place] [address] Care Team Providers Care Curtain Hemmer Automatic Name Role Phone Brant Wei Primary Care Provider Encounter Details Date Type Department Care Team (Late st Contact Info) Description 06/24/2024 Orders Only [facility] Oncology and Hematology - [place] [address] [facility] [address] [place] [address] Jon Gilman MD [address] [facility] [address] [place] [address] Malignant neoplasm of lung, unspecified laterality, unspecified part of lung (CMS/HCC) Social History Tobacco Use Types Packs/Day Years Used Date Smoking Tobacco: Some Days Cigarettes 0.2 0.8 Started: 07/28/2023; Last attempted to quit: 10/06/2023 Smokeless Tobacco: Never Comments:Couple puffs of a c igarettes a day Alcohol Use Standard Drinks/Week Comments [...] on file Sexual Orientation Not on file documented as of this encounter Plan of Treatment Upcoming Encounters Date Type Department Care Team (Late st Contact Info) Description 07/04/2024 2:15 PM CDT Office Visit [facility] Oncology and Hematology - [place] [address] [facility] [address] [place] [address] Jon Gilman MD [address] [facility] [address] [place] [address] documented as of this encounter Visit Diagnoses Diagnosis Malignant neoplasm of lung, unspecified laterality, unspecified part of lung (CMS/HCC) documented in this encounter Care Teams Curtain Hemmer Automatic Relationship Specialty Start Date End Date Brant Wei DO [address] [facility] [address] [place] [address] PCP - General Internal Medicine 07/18/23 documented as of this encounter
--- OUTSIDE RECORDS SUMMARY | 2024-06-27 09:48 | XMS_ITS | Referral Summary ---
Author Organization [facility] [address] [place] [address] [address] [facility] [address] [place] [address] Care Team Providers Care Collection Support Specialist Name Role Phone Brant Wei DO Primary Care Provider +1- [phone] Encounters Date Type Department Care Team Description 06/17/2024 9:45 AM CDT Office Visit [facility] Cardiology [address] [place] [address] [address] [place] [address] Acacia Reddy MD Coronary artery disease of havasupai artery of havasupai heart with stable angina pectoris (Primary Dx); Palpitations; Infrarenal abdominal aortic aneurysm (AAA) without rupture; Essential hypertension; WHALEN (dyspnea on exertion); Tobacco abuse counseling 04/19/[address] [facility] Cardiology [address] [place] [address] [address] [place] [address] Acacia Reddy MD from Last 3 Months Allergies Active Allergy Reactions Criticality Noted Date Comments Morphine Nausea And Vomiting Low 07/26/2023 Spironolactone Hives,Shortness of breath,Itching High 10/30/2020 Medications gabapentin (NEURONTIN) 300 mg capsule TAKE 1 CAPSULE EVERY 8 TO 12 HOURS NEEDED 0 Active HYDROcodone-richa taminophen (NORCO) 10-325 mg per tablet TAKE 1 TABLET BY MOUTH EVERY 8 TO 12 HOUR NEEDED FOR PAIN 1 Active lisinopriL (PRINIVIL,ZESTR IL) 30 mg tablet Take 1 tablet (30 mg total) by mouth daily 1 Active aspirin 81 mg enteric coated tablet Take 1 tablet (81 mg total) by mouth daily Active cyclobenzaprine (FLEXERIL) 10 mg tablet TAKE 1 TABLET BY MOUTH EVERY 8 TO 12 HOURS NEEDED 1 Active fluticasone propionate (FLONASE) 50 mcg/actuation nasal spray Administer 1 spray into each nostril daily Active bisacodyl EC (DULCOLAX EC) 5 mg EC tabletIndicatio ns:constipation Take 1 tablet (5 mg total) by mouth daily as needed for constipation Active acetaminophen (TYLENOL) 500 mg tablet Take 1 tablet (500 mg total) by mouth every 6 (six) hours as needed for pain Active Stiolto Respimat 2.5-2.5 mcg/actuation inhaler Inhale 2 puffs daily 3 Active albuterol HFA (PROVENTIL HFA,VENTOLIN HFA,PROAIR HFA) 90 mcg/actuation inhaler INHALE 2 PUFFS EVERY 4 HOURS NEEDED FOR SHORTNESS OF BREATH OR FOR WHEEZE 3 Active nitroglycerin (NITROSTAT) 0.4 mg SL tablet TAKE 1 TABLET BY MOUTH UNDER TONGUE EVERY 5 MINUTES NEEDED CHEST PAIN, IF NOT RELIEF CALL 911 25 tablet 11 4 Active atorvastatin (LIPITOR) 40 mg tablet TAKE 1 TABLET BY MOUTH EVERY DAY 90 tablet 2 4 Active folic acid (FOLVITE) 1 mg tablet TAKE 1 TABLET (1 MG) BY MOUTH DAILY STARTING 7 DAYS BEFORE TREATMENT. 4 Active lidocaine-prilo cyril cream Apply quarter size amount to port side 30 mins before access. 4 Active naloxone (NARCAN) 4 mg/actuation spray,non-aeros ol EMERGENCY USE ONLY: Administer 1 spray (4 mg) in one nostril one time. May repeat in alternating nostrils every 2-3 min until responsive or EMS arrives. 4 Active tamsulosin (FLOMAX) 0.4 mg extended release capsule Take 2 capsules (0.8 mg total) by mouth daily 4 Active dexAMETHasone (DECADRON) 4 mg tablet Take 1 tablet by mouth BID day before treatment, day of treatment, and day after treatment. 4 Active hydroCHLOROthia zide (HYDRODIURIL) 25 mg tablet TAKE 1 TABLET BY MOUTH EVERY DAY 90 tablet 2 4 Active carvediloL (COREG) 25 mg tablet Take 1 tablet (25 mg total) by mouth 2 (two) times a day 180 tablet 3 5 Active ranolazine ER (RANEXA) 500 mg 12 hr tabletIndicatio ns:Coronary artery disease of havasupai artery of havasupai heart with stable angina pectoris TAKE 1 TABLET BY MOUTH TWICE A DAY 180 tablet 3 5 Active Active Problems Problem Noted Date Diagnosed Date Morbid (severe) obesity due to excess calories 0 09/26/2022 Infrarenal abdominal aortic aneurysm (AAA) witho ut rupture 03/28/2022 Coronary artery disease of n ative artery of havasupai heart with stable angina pectoris 01/18/2021 Tobacco [...] uit: Not Asked; Counseling Given: Not Answered Sex and Gender Information Value Date Recorded Sex Assigned at Not on file Legal Sex Male 11:42 AM CDT Gender Identity Not on file Sexual Orientation Not on file Last Filed Vital Signs Vital Sign Reading Time Taken Comments Blood Pressure 112/68 06/17/2024 9:51 AM CDT Pulse 66 06/17/2024 9:51 AM CDT Temperature 36.6 C (97.8 F) 07/01/2020 1:55 PM CDT Respiratory Rate - - Oxygen Saturation 93% 06/17/2024 9:51 AM CDT Inhaled Oxygen Concentration - - Weight 103 kg (227 lb) 06/17/2024 9:51 AM CDT Height 182.9 cm (6') 06/17/2024 9:51 AM CDT Body Mass Index 30.79 06/17/2024 9:51 AM CDT Plan of Treatment Not on file Procedures Procedure Name Priority Date/Time Associated Diagnosis Comments POCT LIPID PANEL Routine 06/17/2024 11:5 0 AM CDT Coronary artery disease of havasupai artery of havasupai heart with stable angina pectoris from Last 3 Months Results * POCT lipid panel (06/17/2024 11:50 AM CDT) Cholesterol, POC <100 mg/dL Comment:GLU = 164 HDL, POC <15 mg/dL Triglycerides, POC 108 mg/dL LDL Cholesterol POC 63 mg/dL Chol/HDL Ratio, POC N/A Non-HDL Cholesterol, POC N/A mg/dL Cholesterol Total, POC <100 mg/dL Capillary blood 06/17/2024 1 1:50 AM CDT Acacia Reddy MD POINT OF CARE TEST O RDERABLES Final Result from Last 3 Months Insurance MEDICARE [facility] Address: [facility] [address] [place] [address] MEDICARE [facility] Address: [facility] [address] [place] [address] Care Teams Collection Support Specialist Relationship Specialty Start Date End Date Brant Wei DO PCP - General Internal Medicine 11/16/16
--- OUTSIDE RECORDS SUMMARY | 2024-06-27 09:48 | XMS_ITS | Clinical Summary ---
Author Organization [facility] Address [address] [facility] [facility] [place] [address] Care Team Providers Care Master Electrician Name Role Phone Corryolena Brant Nii GERMAN [...] 1 Active fluticasone propionate (FLONASE) 50 mcg/spray Merrill, Suspension nasal inhaler Administer 1 Merrill in each nostril daily. Active nitroglycerin (NITROSTAT) [...] 3 4 Active naloxone (NARCAN) 4 mg/spray Merrill, Non-Aerosol EMERGENCY USE ONLY: Administer 1 spray [...] artery disease of n ative artery of [place] heart with stable angina pectoris 01/18/2021 Essential hypertension 06/15/2020 Encounters Date Type Department Care Team Description 06/24/2024 Orders Only [facility] Oncology and Hematology - [place] [address] Jon Gilman MD Malignant neoplasm of lung, unspecified laterality, unspecified part of lung (CMS/HCC) 06/10/2024 Orders Only [facility] Oncology and Hematology - [place] [address] [place] [id number] Jon Gilman MD Malignant neoplasm of lung, unspecified laterality, unspecified part of lung (CMS/HCC) 05/29/2024 External Device Data STL ABSTRACTION Provider, Abstract 05/27/2024 Orders Only [facility] Oncology and Hematology - [place] [address] [place] [id number] Jon Gilman MD Malignant neoplasm of lung, unspecified laterality, unspecified part of lung (CMS/HCC) 05/16/2024 Orders Only [facility] Oncology and Hematology - [place] [address] [place] [id number] Jon Gilman MD Malignant neoplasm of upper lobe of right lung (CMS/HCC) (Primary Dx) 05/14/2024 4:30 PM RN LIAISON Telephone Check Up [facility] Oncology and Hematology - [place] [address] [place] [address] Jon Gilman MD 05/14/2024 External Device Data STL ABSTRACTION Provider, Abstract 05/13/2024 Orders Only [facility] Oncology and Hematology - [place] [address] [place] [address] Jon Gilman MD Malignant neoplasm of lung, unspecified laterality, unspecified part of lung (CMS/HCC) (Primary Dx) 05/08/2024 External Device Data STL ABSTRACTION Provider, Abstract 05/08/2024 Orders Only [facility] Oncology and Hematology - [place] [address] [place] [address] Jon Gilman MD 05/02/2024 External Device Data STL ABSTRACTION Provider, Abstract 04/30/2024 Abstract [facility] Oncology and Hematology - [place] Kriss [address] Jon Gilman MD 04/29/2024 Orders Only [facility] Oncology and Hematology - [place] [address] Jon Gilman MD Malignant neoplasm of lung, unspecified laterality, unspecified part of lung (CMS/HCC) 04/25/2024 8:45 AM RN LIAISON Office Visit [facility] Oncology and Hematology - [place] [address]idra [address] Jon Gilman MD Malignant neoplasm of lung, unspecified laterality, unspecified part of lung (CMS/HCC) (Primary Dx) 04/25/2024 Orders Only [facility] Oncology and Hematology - [place] [address] [place] [id number] Jon Gilman MD 04/18/2024 Orders Only [facility] Oncology and Hematology - [place] [address] [place] [phone] Jon Gilman MD 04/15/2024 Orders Only [facility] Oncology and Hematology - [place] [address]ra [address] Jon Gilman MD Malignant neoplasm of lung, unspecified laterality, unspecified part of lung (CMS/HCC) 04/01/2024 Orders Only [facility] Oncology and Hematology - [place] [address] Jon Gilman MD Malignant neoplasm of [...] Comments Blood Pressure 139/79 04/25/2024 8:35 AM RN LIAISON Pulse 76 04/25/2024 8:35 AM RN LIAISON Temperature 36.1 C (97 F) 04/25/2024 8:35 AM RN LIAISON Respiratory Rate 20 04/25/2024 8:35 AM RN LIAISON Oxygen Saturation 94% 04/25/2024 8:35 AM RN LIAISON Inhaled Oxygen Concentration - - Weight 108 kg (238 lb) 04/25/2024 8:35 AM RN LIAISON Height 180.3 cm (5' 11 ) 11/15/2023 9:36 PM CDT Body Mass Index 33.19 11/15/2023 9:36 PM CDT Plan of Treatment Upcoming Encounters Date Type Department Care Team (Late st Contact Info) Description 07/04/2024 2:15 PM CDT Office Visit [facility] Oncology and Hematology - [place] [address] [place] [address] Jon Gilman MD [address] [facility] [address] [place] [address] Health Maintenance Due Date Last Done Comments Pre-Diabetes and Diabetes Screening 1955 DTAP/TDAP/TD VACCINES (1 - Tdap) 11/22/1975 PNEUMOCOCCAL VACCINE 50+ YEARS (1 of 2 - PCV) 11/21/18 76 COLORECTAL SCREENING 2001 Colorectal Cancer Screening 2001 FIT-DNA Q 3 years 2001 FIT/FOBT Q 1 year 2001 Flex Sig/CT Colonography Q 5 years 2001 ZOSTER VACCINE (1 of 2) 2006 RSV VACCINE (60+ or ) (1 - Risk 60-74 years 1-dose series) 2016 Abdominal Aortic Aneurysm (AAA) Screening 2021 INFLUENZA VACCINE (#1) 2023 Medicare Advantage (MD) Prev entative Visit/Annual Wellness Visit 04/10/2024 Medical Devices Implanted Type Area Floor Plan Adjuster Device Identifier Shelf Expiration Date Model / Serial / Lot Clip Ligating Horizon Med Ti [id number] - Csc - [id number] Implanted:Qty : 3 on 09/26/2023 by Hu Alberts MD at [facility] Clip Right: Lung TELEFLEX- WECK CLOSURE SYS 08/30/2027 [id number] / / [id number] Clip Ligating Horizon Med Ti [id number] - Csc - [id number] Implanted:Qty : 1 on 09/26/2023 by Hu Alberts MD at [facility] Clip Right: Lung TELEFLEX- WECK CLOSURE SYS 08/30/2027 [id number] / / [id number] Clip Ligating Horizon Med Ti [id number] - Csc - [id number] Implanted:Qty : 1 on 09/26/2023 by Hu Alberts MD at [facility] Clip Right: Lung TELEFLEX- WECK CLOSURE SYS 08/30/2027 [id number] / / [id number] Agent Hemostat Surgicel 4x8in 2s - [id number] Implanted:Qty : 1 on 09/26/2023 by Hu Alberts MD at [facility] Hemostatic Right: Lung [employer] 02/08/2028 [id number] / / [id number] Sealant Progel Pleural 4ml [id number] - [id number] Implanted:Qty : 1 on 09/26/2023 by Hu Alberts MD at [facility] Tissue Right: Lung BARD DARRIUSOL [id number] 09/14/2024 [id number] / / [id number] Procedures Procedure Name Priority Date/Time Associated Diagnosis Comments PET BONE IMG W CT SKL BSE MID THG Routine 05/07/2024 2:43 PM RN LIAISON CBC WITH DIFFERENTIAL Routine 04/25/2024 3:41 PM RN LIAISON BASIC METABOLIC PANEL Routine 04/24/2024 3:[address] CHEST W CONTRAST Routine 04/16/2024 1 2:48 PM RN LIAISON from Last 3 Months Results * PET BONE IMG W CT SKB MDTH (05/07/2024 2:43 PM RN LIAISON) Anatomical Region Laterality Modality Positron Emissio n Tomography (PET) us Jon Gilman MD PE ORDERABLES Final Result * CBC WITH DIFFERENTIAL (04/25/2024 3:41 PM RN LIAISON) Blood us Jon Gilman MD HEMATOLOGY ORDERABLES Final Res ult * BASIC METABOLIC PANEL (04/24/2024 3:44 PM RN LIAISON) Blood us Jon Gilman MD CHEMISTRY ORDERABLES Final Resu lt * CT CHEST W CONTRAST (04/16/2024 12:48 PM RN LIAISON) Anatomical Region Laterality Modality Chest Computed Tomogra phy us Jon Gilman MD CT ORDERABLES Final Result from Last [address] [facility] [id number] [facility] [id number] Advance Directives For more information, please contact: [phone] * Full Code (Latest Code Status on File) Date Activated Date Inactivated Comments 11/15/2023 9:41 PM 11/17/2023 3:14 PM * Full Code Date Activated Date Inactivated Comments 09/26/2023 11:16 PM 10/03/2023 4:59 PM * Full Code Date Activated Date Inactivated Comments 09/26/2023 9:44 AM 09/26/2023 11:16 PM Care Teams Master Electrician Relationship Specialty Start Date End Date Brant Wei DO [address] [id number] PCP - General Internal Medicine 07/18/23
--- OUTSIDE RECORDS SUMMARY | 2024-06-27 09:48 | XMS_ITS | Clinical Summary ---
Author Organization [facility] [address] Address [address] [place] [address] Care Team Providers Care Hostel Manager Name Role Phone Brant Wei DO Primary Care Provider [phone] Allergies Active Allergy Reactions Criticality Noted Date [...] 12 hr tabletIndicatio ns:Coronary artery disease of [place] artery of [place] heart with stable angina pectoris TAKE 1 TABLET BY MOUTH TWICE A DAY 180 tablet 3 5 Active Active Problems Problem Noted Date Diagnosed Date Morbid (severe) obesity due to excess calories 0 09/26/2022 Infrarenal abdominal aortic aneurysm (AAA) witho ut rupture 03/28/2022 Coronary artery disease of n ative artery of [place] heart with stable angina pectoris 01/18/2021 Tobacco abuse counseling 01/18/2021 WHALEN (dyspnea on exertion) 06/15/2020 Palpitations 06/15/2020 Essential hypertension 06/15/2020 Resolved Problems Problem Noted Date Diagnosed Date Resolved Date Other chest pain 07/13/2020 01/18/2021 Encounters Date Type Department Care Team Description 06/17/2024 9:45 AM CDT Office Visit [facility] Cardiology [address] [place] [address] Acacia Reddy MD Coronary artery disease of [place] artery of [place] heart with stable angina pectoris (Primary Dx); Palpitations; Infrarenal abdominal aortic aneurysm (AAA) without rupture; Essential hypertension; WHALEN (dyspnea on exertion); Tobacco abuse counseling 04/19/2024 Telephone [facility] Cardiology [address] [place] [phone] Acacia Reddy MD from Last 3 Months [...] 06/17/2024 9:51 AM CDT Plan of Treatment Health Maintenance Due Date Last Done Comments Colon Cancer Screening-Colonoscopy 1955 Depression Screening 1956 Fall Risk Assessment 1956 Hepatitis C Screening 1955 Prostate Cancer Screening-PSA 1956 DTaP/Tdap/Td Vaccine (1 - Tdap) 11/22/1967 Hepatitis B Screening 1974 Pneumococcal vaccine 65+ (1 of 2 - PCV) 11/22/1975 Zoster Vaccine (1 of 2) 2006 Well Visit 65+ 2021 Influenza Vaccine (#1) 2023 02/09/2019, 2018 Abdominal Aortic Aneurysm (A AA) Screen Completed 06/17/2024, 12/18/2023, 06/12/2023, Additional history exists Procedures Procedure Name Priority Date/Time Associated Diagnosis Comments POCT LIPID PANEL Routine 06/17/2024 11:5 0 AM CDT Coronary artery disease of [place] artery of [place] heart with stable angina pectoris from Last 3 Months Results * POCT lipid panel (06/17/2024 11:50 AM CDT) Cholesterol, POC <100 mg/dL Comment:GLU = 164 HDL, POC <15 mg/dL Triglycerides, POC 108 mg/dL LDL Cholesterol POC 63 mg/dL Chol/HDL Ratio, POC N/A Non-HDL Cholesterol, POC N/A mg/dL Cholesterol Total, POC <100 mg/dL Capillary blood 06/17/2024 1 1:50 AM CDT us Acacia Reddy MD POINT OF CARE TEST O RDERABLES Final Result from Last 3 Months Insurance MEDICARE SOLUTIONS MEDICARE [employer]UTIONS Care Teams Hostel Manager Relationship Specialty Start Date End Date Brant Wei DO PCP - General Internal Medicine 11/16/16
== END 2024-06-27 09:24 | disposition home or self-care (01) ==
PROVIDERS: PCP Clinical Nurse Specialist; Visit Provider Internal Medicine Hematology & Oncology
DX: C34.11 Malignant neoplasm of upper lobe, right bronchus or lung (principal); C79.89 Secondary malignant neoplasm of other specified sites
CPT/HCPCS: 20206; 88304; 88342

== ENCOUNTER 2024-07-19 09:30 | Outpatient (RCR) | payer MEDICARE, SELFPAY ==
[2024-07-09 11:09] VITALS: BP 87/55; PULSE 95; RESP 12; TEMP 36.7; O2SAT 97
--- NOTE | 2024-07-09 14:23 | PDRADONCCN ---
[facility] Date/Time Seen Date/Time: 07/09/24 14:23 Identifying Data Identifying Data: Mr. Han is a 68-year-old gentleman who is accompanied with his today to explore his treatment options for known diagnosis of metastatic lung carcinoma with Mets to his right posterior chest wall along the lumpectomy scar with significant pain limiting his activities. Mr. Andre Brizuela presented with T2 N1 M0, status post right upper lobectomy done on September 26, 2023 and the pathology was consistent with T2a N1 M0 stage grouping to be however patient had lymphovascular invasion including the large vessel with negative margins and 3/7 intraparenchymal and hilar nodes were positive for metastatic carcinoma meantime patient was also found to have pleural nodules hence underwent 4 cycles of cisplatin and Alimta which was completed on February 15, 2024 and patient has been doing well since then and had a CT of the chest done on April 16 which showed worsening of the pleural base nodule in the right lower lobes suspicious for bronchogenic carcinoma and the PET scan from May 07 showed pleural-based masses with increased activity in the right thorax and a mass in the right lateral chest wall with increased SUV consistent with metastatic disease and a biopsy from the right lateral chest wall was positive for adenocarcinoma of the lung. Patient seems to be complaining of pain along the right lobectomy scar however his back pain takes over for which he has been seeing a pain management for several years and gets shots for the same with no signs of significant relief the last few times. Medical History Medical History (Updated 05/07/24 @ 00:00 by Nathen Quinteros) Adenocarcinoma, lung AAA (abdominal aortic aneurysm) Allergies Chronic back pain Erectile dysfunction Frozen shoulder Hypertension Surgical History Surgical History History of back surgery Multiple H/O shoulder surgery Left 05/2008 Family History Family History Father Malignant neoplasm of prostate Other Cerebrovascular accident Diabetes mellitus Family history of arthritis Family history of cardiovascular disease Family history of kidney disease Family history of malignant neoplasm Hypertension Social History Social History Smoking packs per day: 1 Smoking cigarettes per day: 20.0 Years smoked: 57 Smoking pack-years: 57.00 Smoking status: Current every day smoker Tobacco type: cigarettes Second hand tobacco smoke exposure: No Smoking end date: 11/07/23 Additional smoking assessment comments: CURRENTLY SMOKES 10 CIGARETTES IN 5 DAYS Alcohol intake: former Substance use: never Substance use type: does not use Lack of Transportation: No Lack of Food: Never True Current Housing: I Have Housing Concerned About Future Housing: No Difficulty Paying Gas/Electric Bills: No Difficulty Paying for Meds: No Currently Unemployed: No Education: Master's Degree or Higher Difficulty w/ Childcare or Family Care: No Living arrangements: with family Spiritual care concerns: No Allergies Allergies Allergy/AdvReac Type Severity Reaction Status Date / Time morphine Allergy Intermediate Vomiting Verified 05/06/24 16:40 spironolactone Allergy Intermediate Hives Verified 05/06/24 16:40 Review of Systems Review of Systems Narrative: Very pleasant gentleman who was in significant pain 8/10 and has significant restriction in movement patient is not able to lift his arm due to the mass which he complains that the right lateral chest wall mass has grown about 3 times since the biopsy which might be due to hematoma/post biopsy inflammatory signs. Exam General: Very fragile 68-year-old gentleman who is sitting uncomfortably due to pain in his back. Cardiovascular respiratory examination is unremarkable and patient has a 4 x 5 cm mass along the lateral part of the lumpectomy scar, which is mobile, not attached to the skin. No signs of any ulcerations. Vital Signs: Vital Signs - 24 hr 07/09/24 11:09 Temperature 36.7 C Pulse Rate 95 Respiratory Rate 12 Blood Pressure 87/55 L Pulse Oximetry 97 Pain scale of 8/10 and he attributes this pain to the lower back it compared to the right chest wall however has restriction of his right arm movements due to pain and tenderness along the chest wall Radiologic Data: FINDINGS: Head/neck: There are no pathologically enlarged lymph nodes. Chest: There is mild emphysema. There are changes of right upper lobectomy. There are four pleural-based masses in right thorax with increased activity. For example, there is a 2.1 cm nodule in right lower lobe at the pleura with maximum SUV of 8.9. There are airspace opacities and centrilobular nodules in left upper lobe and airspace opacities in anteromedial basal segment left lower lobe with increased activity, consistent with pneumonia. No pleural effusion. The heart size is normal. There are coronary artery calcifications. No pericardial effusion. There is ectasia of ascending aorta measuring 4.6 cm. There is a right internal jugular port with tip in superior vena cava. There are multiple healing right rib fractures. There is a 3.3 x 2.6 cm mass in right lateral chest wall with increased activity. There is a 6.0 x 1.6 cm mass with increased activity between the right rib fractures of the scapula, most likely scapulothoracic bursitis. Abdomen/pelvis/proximal thighs: There is an 8 mm cyst in the liver. There are gallstones in the gallbladder. Gallbladder distention may be secondary to fasting. There is a small sliding hiatal hernia. The spleen, pancreas, and left adrenal gland are normal. There is a 2.0 cm mass in right adrenal gland measuring low attenuation, consistent with an adenoma. The kidneys are normal. The prostate is mildly enlarged. There are bilateral inguinal hernias containing fat. The appendix is normal. There is calcified atherosclerosis of the aorta and many of the other arteries. There is a 3.8 cm fusiform aneurysm of infrarenal aorta. There are no pathologically enlarged lymph nodes. There is no free intraperitoneal fluid. IMPRESSION: 1. Pleural-based masses with increased activity in right thorax and a mass in right lateral chest wall with increased activity, consistent with metastatic disease. 2. Pneumonia involving left upper lobe and left lower lobe. 3. Mass again seen between multiple right-sided rib fractures and the inferior scapula, most likely scapulothoracic bursitis. Pathologic Data: Right lateral chest wall mass at 11:00, needle biopsies: - Metastatic poorly differentiated adenocarcinoma consistent with lung primary - Immunoperoxidase stains for the following markers were performed TTF1 Positive Napsin A Negative p63 Negative Reviewed and Electronically Signed by: Joaquin Garber MD 07/01/24 2332 Impression Impression Impression: Very pleasant gentleman with a known diagnosis of metastatic lung carcinoma with Mets to the chest wall with possible tumor contamination lung lobectomy scar. Recommendations Recommendations Recommendations: Discuss in detail about external beam radiation to the right lateral chest wall to a cumulative dose of 8532-7099 cGy with a palliative intent to help his pain symptoms and reduce the tumor volume. After having detailed discussion about the pros and benefits of external beam radiation patient wanted to pursue with the treatments hence a written consent was signed and patient will be simulated accordingly to receive external beam radiation with a palliative intent.
--- NOTE | 2024-07-11 11:10 | WPDRADIATPRO ---
Radiation Procedure Note Date/Time Date/Time: 07/11/24 11:10 Summary Summary: PURPOSE: The patient is undergoing a virtual CT simulation for external beam radiation treatment planning. TREATMENT SITE(S):right chest wall NUMBER OF AREAS OR FOOTE: One treatment area was simulated today NUMBER OF PORTS: TBD during planning process EQUIPMENT USED: Simulation was performed on the department?s dedicated CT simulator. IMMOBILIZATION: An alpha cradle device was fabricated to immobilize the patient?s body in treatment position. CONTRAST MEDIA: The use of contrast was not required for this simulation. EXTERNAL MARKERS: No external markers were used. TATTOOS: Positioning tattoos were applied to the patient?s skin. BLOCKING: Custom blocks of complex design will be drawn to cover the target volume within the treatment field(s). FIELD MODIFIERS: A wedge, compensating filter, multiple MLC control points, and/or DMLC may be required to improve dose homogeneity. The decision whether to use these devices will occur during the treatment planning process. ISODOSE PLAN: A 3D treatment plan will be performed SCHEDULING Prior to delivering the first radiation fraction, a simulation will be performed to verify the isocenter location and block design. IMAGING QA: Weekly electronic portal images will be obtained.
--- NOTE | 2024-07-18 12:10 | WPDRADIATPRO ---
Radiation Procedure Note Date/Time Date/Time: 07/18/24 12:10 Summary Summary: VERIFICATION SIMULATION Patient is a 68 year old who is scheduled to begin external beam radiation for a right posterior chestwall The patient was brought to the Treatment Room where a time out was performed. The treatment plan was reviewed. The patient's questions were answered to their satisfaction. The patient was placed in the treatment position including utilization of appropriate immobilization devices. The CT images were fused and aligned to the treatment planning CT image set. I personally reviewed the CT alignment and resulting couch adjustments for accuracy. A series of confirmatory portal images were obtained and compared to the digitally reconstructed radiographs . Minor shifts and adjustments were made. The final portal images were reviewed and approved. The patient images were reviewed and approved for treatments. Treatments will begin their treatment on Louis Ness MD
== END 2024-07-23 09:50 ==
LOC: AMCRADONC 09:30
PROVIDERS: PCP Internal Medicine; Visit Provider Radiology Radiation Oncology
DX: Z51.0 Encounter for antineoplastic radiation therapy (principal); C34.11 Malignant neoplasm of upper lobe, right bronchus or lung; C79.89 Secondary malignant neoplasm of other specified sites; C77.8 Secondary and unspecified malignant neoplasm of lymph nodes of multiple regions; G89.3 Neoplasm related pain (acute) (chronic); I71.40 Abdominal aortic aneurysm, without rupture, unspecified; N52.9 Male erectile dysfunction, unspecified; I10 Essential (primary) hypertension; M54.50 Low back pain, unspecified; Z87.891 Personal history of nicotine dependence; Z92.21 Personal history of antineoplastic chemotherapy; Z98.890 Other specified postprocedural states
CPT/HCPCS: 77280; 77290; 77295; 77300; 77334; 77412; 99212; G0463

== ENCOUNTER 2024-07-21 23:02 | Observation (INO) | payer MEDICARE, SELFPAY ==
--- NOTE | ~2024-07-21 | XR_ITS ---
Portable chest x-ray Comparison: 11/15/2023 Clinical History: Shortness of breath Findings: Right-sided Mediport is unchanged. There is central congestive change and probable mild pu lmonary edema. Cardiomediastinal silhouette is stable. Bones and soft tissues are unremarkable. Impression: Central congestive change and probable minimal pulmonary edema. Stable cardiomegaly. Stable Mediport. Reviewed, dictated and finalized at location . Impression: Central congestive change and probable minimal pulmonary edema. Stable cardiomegaly. Stable Mediport.
--- NOTE | ~2024-07-21 | CT_ITS ---
Clinical Indication: Lung cancer, pulmonary embolus CT Scan of the Chest with Contrast: Technique: Contiguous sections were acquired throughout the chest after intravenous administration of 100 cc of Omnipaque 350. Dose reduction technique was used on this scan by utilizing automated expos ure control and iterative reconstruction technique. The dose-length product (DLP) was 577.23 mGy-cm. COMPARISON: 04/16/2024 Findings: No central pulmonary embolus seen. Motion artifact limits evaluation for small, peripheral pulmonary emboli. There is no evidence of aortic dissection or aneurysm. There is extensive wall thickening of the esophagus, especially distally. There is been marked interval progression of a lobulated mass at the right paratracheal stripe extend ing to the right hilar region and along the right heart border. This mass measures up to approximatel y 7.4 x 5.5 x 5.6 cm in size. There is also significantly enlarged subcarinal node measuring approxim ately 3.3 cm in diameter. There is an increased posterior right upper lobe pleural-based mass measuri ng 2.5 cm in diameter (axial image 120). There is no evidence of pleural or pericardial effusion. Questionable lingular nodule versus focal scarring or atelectasis. There is additional bibasilar depe ndent atelectatic change. There is probable extensive right upper lobe atelectasis. Images through the upper abdomen reveal multiple gallstones. Low-density 1.8 cm right adrenal nodule is compatible with adenoma. Chronic right rib fracture deformities are present. Impression: No definite pulmonary embolus seen. 7.4 x 5.5 x 5.63 mass along the right heart border extending to the right hilum and right paratrachea l stripe, compatible with malignancy, markedly progressed from prior exam. 3.3 cm subcarinal metastat ic lymph node is also markedly progressed from prior exam. 2.5 cm possible pleural-based metastasis at the posterior right upper lobe. Questionable small lingular nodule versus scarring or atelectasis. Probable extensive right upper lobe atelectasis. Possible esophagitis. Cholelithiasis and right adrenal adenoma. Reviewed, dictated and finalized at location M. Impression: No definite pulmonary embolus seen. 7.4 x 5.5 x 5.63 mass along the right heart border extending to the right hilum and right paratracheal stripe, compatible with malignancy, markedly progressed from prior exam. 3.3 cm subcarinal metastatic lymph node is also markedly prog ressed from prior exam. 2.5 cm possible pleural-based metastasis at the posterior right upper lobe. Questionable small lingular nodule versus scarring or atelectasis. Probable extensive right upper lobe atelectasis. Possible esophagitis. Cholelithiasis and right adrenal adenoma.
[2024-07-21 23:00] VITALS: BP 114/71; PULSE 98; RESP 17; TEMP 36.7; O2SAT 100
--- NOTE | 2024-07-21 23:10 | ECG_ITS ---
Test Date: 2024-07-21 23:06:09 Measurements Intervals [place] Rate: 97 P: 33 CO: 189 QRS: 52 QRSD: 112 T: 3 QT: 378 QTc: 482 Interpretive Statements SINUS RHYTHM INCOMPLETE RIGHT BUNDLE BRANCH BLOCK MINIMAL Q WAVES- DIFFUSE LEADS BORDERLINE ST-T WAVE ABNORMALITY- INFERIOR LEADS BORDERLINE ECG Compared to ECG 11/15/2023 14:05:50 First degree AV block no longer present Electronically Signed On 07-22-2024 06:27:18 CDT by Ross Delgado D.O.
[2024-07-21 23:11] VITALS: BP 114/71; PULSE 98; PULSE 99; RESP 17; O2SAT 100
[2024-07-21 23:34] LABS: Basophils Percent Auto 0.2 % (0.2-1.2); Eosinophils Absolute Auto 0.1 K/mm3 (0-0.3); Eosinophils Percent Auto 1.3 % (0-4.4); Hematocrit 33.3 % (42.0-52.0); Hemoglobin 10.7 g/dL (14.0-18.0); Immature Granulocyte Absolute 0.03 K/mm3 (0.00-0.031); Immature Granulocyte Percent A 0.4 % (0-0.5); Lymphocytes Absolute Auto 0.67 K/mm3 (0.9-3.2); Lymphocytes Percent Auto 8.1 % (18.3-44.2); Mean Corpuscular HGB Conc 32.1 g/dl (32-36); Mean Corpuscular Hemoglobin 30.3 pg (26-34); Mean Corpuscular Volume 94.3 fl (80-100); Mean Platelet Volume 10.3 fl (7.4-10.4); Monocytes Absolute Auto 0.9 K/mm3 (0.1-0.6); Monocytes Percent Auto 11.1 % (2.6-8.5); Neutrophils Absolute Auto 6.5 K/mm3 (1.3-6.7); Neutrophils Percent Auto 78.9 % (45.5-73.1); Platelet Count Result 239 k/mm3 (150-375); Red Blood Count 3.53 M/mm3 (4.6-6.20); Red Cell Distribution Width 14.6 % (11.5-14.5); White Blood Count 8.3 K/mm3 (4.5-10.0)
[2024-07-21 23:42] VITALS: BP 90/62; PULSE 100; RESP 18; O2SAT 91
[2024-07-21 23:43] VITALS: BP 95/62; PULSE 100; RESP 19; O2SAT 87; O2SAT 91; O2SAT 93
[2024-07-21 23:44] VITALS: O2SAT 93
[2024-07-21 23:46] VITALS: BP 105/66; PULSE 100; RESP 18; O2SAT 92
[2024-07-21 23:50] LABS: Prothrombin Time 13.8 Seconds (11.1-14.7)
[2024-07-21 23:51] LABS: Partial Thromboplastin Time 31.3 Seconds (22.3-36.8)
[2024-07-22] VITALS (63 sets, daily range): BP systolic 64–125; BP diastolic 36–78; PULSE 79–152; RESP 13–40; TEMP 36.2; O2SAT 75–100; BMI 30.3
[2024-07-22 00:16] LABS: Alanine Aminotransferase 12 U/L (6-50); Albumin Level 3.5 g/dL (3.5-5.1); Alkaline Phosphatase 79 U/L (38-126); Anion Gap 9 mmol/L (4-12); Aspartate Amino Transferase 20 U/L (17-59); Bilirubin,Total 0.5 mg/dL (0.2-1.3); Blood Urea Nitrogen 29 mg/dL (9-20); Calcium 8.8 mg/dL (8.4-10.2); Carbon Dioxide 25 mmol/L (22-30); Chloride 97 mmol/L (98-107); Estimated CRCL calculation 60 ml/min; Estimated Glomerular Filt Rate > 60; Glucose 110 mg/dL (65-110); Lipase 19 U/L (23-300); Sodium 131 mmol/L (137-145)
[2024-07-22 00:27] LABS: Troponin I < 0.012 ng/mL (0.000-0.034)
--- OUTSIDE RECORDS SUMMARY | 2024-07-22 00:31 | XMS_ITS | Clinical Summary ---
Author Organization [facility] [address] Address [address] [place] [address] Care Team Providers Care Automobile Bumper Straightener Name Role Phone Brant Wei DO Primary Care Provider [phone]- [phone] Allergies Active Allergy Reactions Criticality Noted Date [...] 12 hr tabletIndicatio ns:Coronary artery disease of [place] artery of [place] heart with stable angina pectoris TAKE 1 TABLET BY MOUTH TWICE A DAY 180 tablet 3 5 Active Active Problems Problem Noted Date Diagnosed Date Morbid (severe) obesity due to excess calories 0 09/26/2022 Infrarenal abdominal aortic aneurysm (AAA) witho ut rupture 03/28/2022 Coronary artery disease of n ative artery of [place] heart with stable angina pectoris 01/18/2021 Tobacco abuse counseling 01/18/2021 WHALEN (dyspnea on exertion) 06/15/2020 Palpitations 06/15/2020 Essential hypertension 06/15/2020 Resolved Problems Problem Noted Date Diagnosed Date Resolved Date Other chest pain 07/13/2020 01/18/2021 Encounters Date Type Department Care Team Description 06/17/2024 9:45 AM CDT Office Visit [facility] Cardiology [address] [place] [address] Acacia Reddy MD Coronary artery disease of [place] artery of [place] heart with stable angina pectoris (Primary Dx); Palpitations; Infrarenal abdominal aortic aneurysm (AAA) without rupture; Essential hypertension; WHALEN (dyspnea on exertion); Tobacco abuse counseling from Last 3 Months Surgical History Surgery [...] 2006 Well Visit 65+ 2021 Influenza Vaccine (Season Ended) 2024 02/10/20 19, 05/09/2018 Abdominal Aortic Aneurysm (A AA) Screen Completed 06/17/2024, 12/18/2023, 06/12/2023, Additional history exists Procedures Procedure Name Priority Date/Time Associated Diagnosis Comments POCT LIPID PANEL Routine 06/17/2024 11:5 0 AM CDT Coronary artery disease of [place] artery of [place] heart with stable angina pectoris from Last [...] Final Result from Last 3 Months Insurance [facility] MEDICARE ADVANTAGE UHC MEDICARE ADVANTAGE Care Teams Automobile Bumper Straightener Relationship Specialty Start Date End Date Brant Wei DO PCP - General Internal Medicine 11/16/16
--- OUTSIDE RECORDS SUMMARY | 2024-07-22 00:31 | XMS_ITS | Clinical Summary ---
Author Organization [facility] Address [address] [place] [address] Care Team Providers Care Pharmacy Innovation Assistant Name Role Phone MigdaliaBrant stoner DO Primary Care Provider [phone]- [phone] Source Comments [facility],non-owned Affiliates and Associated Physician Practices is amultiple site organization consisting of ambulatory clinics and hospital sitesin [place], [place], [place] and [place]. This disclosure is being madepursuant to the Care Everywhere program and may not contain all information available regarding this patient. Last updated 17.[facility] [employer] Allergies No known active allergies Medications * Be aware that medications may not be up to date on this document. Alwaysverify current medications with the patient. diclofenac sodium (VOLTAREN) 75 MG tablet Take 1 Tab by mouth 2 times daily. 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 Member ID:Not on file Relation to Subscriber:Not on file Name:ANDRE NORWOOD JR. Subscriber ID:Not on file (Home) Address: [address] [place], [place] [id number] Payer ID:Not on file Group ID:Not on file Type:Self Pay Address: [place], [place] SELF PAY NO INSURANCE Member Subscriber Plan / Payer (Ef fective for All Dates) Name:Andre Norwood Jr. Member ID:Not on file Relation to Subscriber:Not on file Name:ANDRE NORWOOD Subscriber ID:Not on file (Home) Address: [address] [place], [place] [id number] Payer ID:Not on file Group ID:Not on file Type:Self Pay Address: [facility] MANAGED MEDICARE ADV SELF PAY NO INSURANCE Member Subscriber Plan / Payer (Ef fective for All Dates) Name:Guille, Andre D Jr. Member ID:Not on file Relation to Subscriber:Not on file Name:ANDRE NORWOOD Subscriber ID:Not on file (Home) Address: [address] [place] [address] Payer ID:Not on file Group ID:Not on file Type:Self Pay Address: [facility] MANAGED MEDICARE ADV SELF PAY NO INSURANCE Member Subscriber Plan / Payer (Ef fective for All Dates) Name:Andre Norwood Jr. Member ID:Not on file Relation to Subscriber:Not on file Name:ANDRE NORWOOD Subscriber ID:Not on file (Home) Address: [address] [place] [address] Payer ID:Not on file Group ID:Not on file Type:Self Pay Address: [facility] MANAGED MEDICARE ADV Care Teams Pharmacy Innovation Assistant Relationship Specialty Start Date End Date Brant Wei DO PCP - General Internal Medicine 03/17/10
--- OUTSIDE RECORDS SUMMARY | 2024-07-22 00:31 | XMS_ITS | Encounter Summary ---
Author Organization [facility] [employer] [facility] Address [address] [place] [address] Care Team Providers Care Disc Sander Name Role Phone Brant Wei Primary Care Provider Encounter Details Date Type Department Care Team (Late st Contact Info) Description 07/22/2024 Orders Only [facility] Oncology and Hematology - [place] [address] [facility] [address] [place] [address] Jon Gilman MD [address] [facility] [address] [place] [address] Malignant neoplasm of lung, unspecified laterality, unspecified part of lung (CMS/HCC) Social History Tobacco Use Types Packs/Day Years Used Date Smoking Tobacco: Some Days Cigarettes 0.1 0.9 Started: 07/28/2023; Last attempted to quit: 10/06/2023 [...] as of this encounter Plan of Treatment Not on file documented as of this encounter Visit Diagnoses Diagnosis Malignant neoplasm of lung, unspecified laterality, unspecified part of lung (CMS/HCC) documented in this encounter Care Teams Disc Sander Relationship Specialty Start Date End Date Brant Wei DO [address] [address] PCP - General Internal Medicine 07/18/23 documented as of this encounter
--- OUTSIDE RECORDS SUMMARY | 2024-07-22 00:31 | XMS_ITS | Referral Summary ---
Author Organization [facility] [address] [facility] [address] Address [address] [place] [address] Care Team Providers Care Public Health Educator Name Role Phone Brant Wei DO Primary Care Provider +1- [phone] Encounters Date Type Department Care Team Description 06/17/2024 9:45 AM CDT Office Visit [facility] Cardiology [address] [place] [address] Acacia Reddy MD Coronary artery disease of [place] artery of [place] heart with stable angina pectoris (Primary Dx); Palpitations; Infrarenal abdominal aortic aneurysm (AAA) without rupture; Essential hypertension; WHALEN (dyspnea on exertion); Tobacco abuse counseling from Last 3 Months Allergies Active Allergy [...] 12 hr tabletIndicatio ns:Coronary artery disease of [place] artery of [place] heart with stable angina pectoris TAKE 1 TABLET BY MOUTH TWICE A DAY 180 tablet 3 5 Active Active Problems Problem Noted Date Diagnosed Date Morbid (severe) obesity due to excess calories 0 09/26/2022 Infrarenal abdominal aortic aneurysm (AAA) witho ut rupture 03/28/2022 Coronary artery disease of n ative artery of [place] heart with stable angina pectoris 01/18/2021 Tobacco [...] 0 AM CDT Coronary artery disease of [place] artery of [place] heart with stable angina pectoris from Last [...] Final Result from Last 3 Months Insurance UHC MEDICARE ADVANTAGE UHC MEDICARE ADVANTAGE Care Teams Public Health Educator Relationship Specialty Start Date End Date Brant Wei DO PCP - General Internal Medicine 11/16/16
--- OUTSIDE RECORDS SUMMARY | 2024-07-22 00:31 | XMS_ITS | Clinical Summary ---
Author Organization [facility] Address [address] [facility] [place] [address] Care Team Providers Care Chlorine Plant Operator Name Role Phone Corryolena Brant Nii [...] 1 Active fluticasone propionate (FLONASE) 50 mcg/spray [place], Suspension nasal inhaler Administer 1 [place] in each nostril daily. Active nitroglycerin (NITROSTAT) [...] 3 4 Active naloxone (NARCAN) 4 mg/spray [place], Non-Aerosol EMERGENCY USE ONLY: Administer 1 spray (4 mg) in one nostril one time. May repeat in alternating nostrils every 2-3 min until responsive or EMS arrives. 2 Each 3 4 Active oxyCODONE (OxyCONTIN) 10 mg Controlled Release 12 hour crush resistant tabletIndication s:Malignant neoplasm of lung, unspecified laterality, unspecified part of lung (CMS/HCC) Take 1 Tablet (10 mg) by mouth every 12 hours. Max Daily Amount: 20 mg 60 Tablet 5 08/19/19 25 Active Active Problems Problem Noted Date Diagnosed Date Pleural effusion on right 11/16/2023 Loculated pleural effusion 11/16/2023 Malignant neoplasm of upper lobe of right lung 0 11/15/2023 Port-A-Cath in place 11/15/[address] of the chest 11/15/2023 Hyperlipemia 09/26/2023 Lung mass 09/26/2023 Infrarenal abdominal aortic aneurysm (AAA) witho ut rupture 03/28/2022 Coronary artery disease of n ative artery of [place] heart with stable angina pectoris 01/18/2021 Essential hypertension 06/15/2020 Encounters Date Type Department Care Team Description 07/22/2024 Orders Only [facility] Oncology and Hematology - [place] Deidra Noland [address] Jon Gilman MD Malignant neoplasm of lung, unspecified laterality, unspecified part of lung (CMS/HCC) 07/19/2024 Refill [facility] Oncology and Hematology [facility] Deidra Noland [address] [place] [address] Jon Gilman MD Malignant neoplasm of lung, unspecified laterality, unspecified part of lung (CMS/HCC) (Primary Dx) 07/15/2024 4:00 PM CDT Telephone Check Up [facility] Oncology and Hematology [facility] Deidra Noland [address] [place] [address] Jon Gilman MD 07/11/2024 Orders Only [facility] Oncology and Hematology [facility] Deidra Noland [address] [place] [address] Jon Gilman MD 07/08/2024 Orders Only [facility] Oncology and Hematology - [place] Deidra Noland [address] [place] [address] Jon Gilman MD Malignant neoplasm of lung, unspecified laterality, unspecified part of lung (CMS/HCC) 07/05/2024 Orders Only [facility] Oncology and Hematology - [place] Deidra Noland [address] [place] [address] Jon Gilman MD Need for hepatitis B screening test (Primary Dx) 07/04/2024 2:15 PM CDT Office Visit [facility] Oncology and Hematology [facility] Deidra Noland [address] Jon Gilman MD Malignant neoplasm of lung, unspecified laterality, unspecified part of lung (CMS/HCC) (Primary Dx) 07/02/2024 External Device Data STL ABSTRACTION Provider, Abstract 07/01/2024 Orders Only [facility] Oncology and Hematology - [place] [address] Karli [address] [place] [address] Jon Gilman MD 06/24/2024 Orders Only [facility] Oncology and Hematology - [place] [address] [place] [address] Jon Gilman MD Malignant neoplasm of lung, unspecified laterality, unspecified part of lung (CMS/HCC) 06/10/2024 Orders Only [facility] Oncology and Hematology - [place] [address] [place] [address] Jon Gilman MD Malignant neoplasm of lung, unspecified laterality, unspecified part of lung (CMS/HCC) 05/29/2024 External Device Data STL ABSTRACTION Provider, Abstract 05/27/2024 Orders Only [facility] Oncology and Hematology - [place] [address] [place] [address] Jon Gilman MD Malignant neoplasm of lung, unspecified laterality, unspecified part of lung (CMS/HCC) 05/16/2024 Orders Only [facility] Oncology and Hematology - [place] Deidra Noland [address] [place] [address] Jon Gilman MD Malignant neoplasm of upper lobe of right lung (CMS/HCC) (Primary Dx) 05/14/2024 4:30 PM WATER POLLUTION CONTROL INSPECTOR Telephone Check Up [facility] Oncology and Hematology - [place] [address] [place] [address] Jon Gilman MD 05/14/2024 External Device Data STL ABSTRACTION Provider, Abstract 05/13/2024 Orders Only [facility] Oncology and Hematology - [place] Deidra Noland [address] [place] [address] Jon Gilman MD Malignant neoplasm of lung, unspecified laterality, unspecified part of lung (CMS/HCC) (Primary Dx) 05/08/2024 External Device Data STL ABSTRACTION Provider, Abstract 05/08/2024 Orders Only [facility] Oncology and Hematology - [place] [address] [place] [address] Jon Gilman MD 05/02/2024 External Device Data STL ABSTRACTION Provider, Abstract 04/30/2024 Abstract [facility] Oncology and Hematology - [place] [address] [place] [address] Jon Gilman MD 04/29/2024 Orders Only [facility] Oncology and Hematology - [place] [address] [place] [address] Jno Gilman MD Malignant neoplasm of lung, unspecified laterality, unspecified part of lung (CMS/HCC) 04/25/2024 8:45 AM WATER POLLUTION CONTROL INSPECTOR Office Visit [facility] Oncology and Hematology - [place] [address] [place] [address] Jon Gilman MD Malignant neoplasm of lung, unspecified laterality, unspecified part of lung (CMS/HCC) (Primary Dx) 04/25/2024 Orders Only [facility] Oncology and Hematology - [place] [address] [place] [address] Jon Gilman MD from Last 3 Months Family History Medical [...] Sign Reading Time Taken Comments Blood Pressure 132/82 07/04/2024 1:53 PM CDT Pulse 87 07/04/2024 1:53 PM CDT Temperature 35.9 C (96.7 F) 07/04/2024 1:53 PM CDT Respiratory Rate 15 07/04/2024 1:53 PM CDT Oxygen Saturation 91% 07/04/2024 1:53 PM CDT Inhaled Oxygen Concentration - - Weight 101.4 kg (223 lb 9.6 oz) 07/04/2024 1:53 PM CDT Height 180.3 cm (5' 11 ) 11/15/2023 9:36 PM CDT Body Mass Index 31.19 11/15/2023 9:36 PM CDT Plan of Treatment Health Maintenance Due [...] (#1) 2023 Medical Devices Implanted Type Area Contact Assembler Device Identifier Shelf Expiration Date Model / Serial / Lot Clip Ligating Horizon Med Ti 130825 - Csc - [id number] Implanted:Qty : 3 on 09/26/2023 by Hu Alberts MD at [facility] Clip Right: Lung TELEFLEX- WECK CLOSURE SYS 08/30/2027 [id number] / / [id number] Clip Ligating Horizon Med Ti [id number] - Csc - [id number] Implanted:Qty : 1 on 09/26/2023 by Hu Alberts MD at [facility] Clip Right: Lung TELEFLEX- WECK CLOSURE SYS 08/30/2027 [id number] / / [id number] Clip Ligating Horizon Med Ti [id number] - Csc - [id number] Implanted:Qty : 1 on 09/26/2023 by Hu Alberts MD at [facility] Clip Right: Lung TELEFLEX- WECK CLOSURE SYS 08/30/2027 [id number] / / [id number] Agent Hemostat Surgicel 4x8in 1952s - [id number] Implanted:Qty : 1 on 09/26/2023 by Hu Alberts MD at [facility] Hemostatic Right: Lung [employer] 02/08/2028 [id number] / / [id number] Sealant Progel Pleural 4ml [id number] - [id number] Implanted:Qty : 1 on 09/26/2023 by Hu Alberts MD at [facility] Tissue Right: Lung BARD DAVOL [id number] 09/14/2024 [id number] / / [id number] Procedures Procedure Name Priority Date/Time Associated Diagnosis Comments HEPATITIS B SURFACE ANTIGEN Routine 07/10/2024 11:07 AM CDT PATHOLOGY REPORT Routine 06/27/2024 10:3 2 AM CDT PET BONE IMG W CT SKL BSE MID THG Routine 05/07/2024 2:43 PM WATER POLLUTION CONTROL INSPECTOR CBC WITH DIFFERENTIAL Routine 04/25/2024 3:41 PM WATER POLLUTION CONTROL INSPECTOR BASIC METABOLIC PANEL Routine 04/24/2024 3:44 PM WATER POLLUTION CONTROL INSPECTOR from Last 3 Months Results * HEPATITIS B SURFACE ANTIGEN (07/10/2024 11:07 AM CDT) Blood us Jon Gilman MD CHEMISTRY ORDERABLES Final Resu lt * PATHOLOGY REPORT (06/27/2024 10:32 AM CDT) Result Yeyo Gilman MD PATHOLOGY/CYTOLOGY ORDERABLES F inal Result * PET BONE IMG W CT SKB MDTH (05/07/2024 2:43 PM WATER POLLUTION CONTROL INSPECTOR) Anatomical Region Laterality Modality Positron Emissio n Tomography (PET) Result Yeyo Gilman MD PE ORDERABLES Final Result * CBC WITH DIFFERENTIAL (04/25/2024 3:41 PM WATER POLLUTION CONTROL INSPECTOR) Blood us Jon Gilman MD HEMATOLOGY ORDERABLES Final Res ult * BASIC METABOLIC PANEL (04/24/2024 3:44 PM WATER POLLUTION CONTROL INSPECTOR) Blood Result Yeyo Gilman MD CHEMISTRY ORDERABLES Final Resu lt from Last [address] [place] [id number] [place] [address] [facility] PPO [facility] [id number] Advance Directives For more information, please contact: [phone] * Full Code (Latest Code Status on File) Date Activated Date Inactivated Comments 11/15/2023 9:41 PM 11/17/2023 3:14 PM * Full Code Date Activated Date Inactivated Comments 09/26/2023 11:16 PM 10/03/2023 4:59 PM * Full Code Date Activated Date Inactivated Comments 09/26/2023 9:44 AM 09/26/2023 11:16 PM Care Teams Chlorine Plant Operator Relationship Specialty Start Date End Date Brant Wei DO [address] [address] PCP - General Internal Medicine 07/18/23
--- OUTSIDE RECORDS SUMMARY | 2024-07-22 00:31 | XMS_ITS ---
Author Organization [facility] Address [address] [facility] [address] Care Team Providers Care Assistant Merchandiser Name Role Phone Brant Wei DO Primary [...] artery disease of n ative artery of [place] heart with stable angina pectoris 01/18/2021 Essential [...]
[2024-07-22 01:02] LABS: Lactic Acid Reflex 0.8 mmol/L (0.7-2.0)
[2024-07-22 01:05] LABS: Magnesium 1.9 mg/dL (1.6-2.3)
[2024-07-22 01:15] LABS: NT Pro B Type Natriuretic Pept 1300 pg/mL (19.9-100)
[2024-07-22 01:16] LABS: Alveolar/Arterial O2 Gradient 75.2 mmHg; Base Excess ABG -2.5 mEq/l (+/-2.0); Fractional Inspired Oxygen 28 %; HCO3 ABG 24.2 mEq/l (22.0-26.0); Oxygen Content ABG 13.5 %vol (16.0-22.0); Oxygen Saturation ABG 90.2 % (95.0-100.0); PCO2 ABG 50.7 mmHg (35.0-45.0); PO2 ABG 64.6 mmHg (80.0-100.0); PO2 FiO2 Ratio Arterial Blood 2.31 %; Total Hemoglobin 11.1 g/dL (12.0-18.0)
[2024-07-22 01:19] LABS: Device NASAL CANNULA; Modified Allen's Test Pass; Oxyhemoglobin 86.5 % THb (90.0-100.0); Site Drawn RIGHT RADIAL; pH ABG 7.297 (7.350-7.450)
[2024-07-22 01:30] LABS: Influenza A QL RT-PCR Negative (Negative); Influenza B QL RT-PCR Negative (Negative); RSV RNA, RT-PCR Negative (Negative); SARS-CoV-2 RNA PCR Negative (Negative)
[2024-07-22] MEDS: SODIUM CHLORIDE 0.9% IV 1,000 ML 999 ML IV CONT ×3 (02:18→02:38)
[2024-07-22 03:15] LABS: Troponin I < 0.012 ng/mL (0.000-0.034)
--- NOTE | 2024-07-22 04:20 | ED.GENADULT ---
HPI - General Adult General Chief complaint: Shortness of Breath/Dyspnea Stated complaint: SOB Time Seen by Provider: 07/22/24 00:11 History of Present Illness HPI narrative: Patient is a 68-year-old gentleman who presents emergency department with chief complaint of shortness of breath. The patient has history of lung cancer is had a lobectomy sees pulmonology at our facility and also sees Oncology Dr. Anderson is had radiation in our facility as well. The patient has history of COPD and was found to be 67% on room air by EMS the post patient on a non-rebreather and gave the patient a DuoNeb. Related Data Home Medications ?Medication ?Instructions ?Recorded ?Confirmed ?Last Taken ?Type cyclobenzaprine 10 mg tablet 10 mg PO TID PRN Spasms 07/15/19 07/10/24 Unknown History fluticasone propionate 50 2 spray intranasal DAILY 07/15/19 07/10/24 Unknown History mcg/actuation nasal spray,suspension (Flonase Allergy Relief) gabapentin 300 mg capsule 300 mg PO TID PRN Pain 07/15/19 07/10/24 Unknown History hydrochlorothiazide 25 mg tablet 25 mg PO DAILY 12/09/20 07/10/24 07/11/23 History acetaminophen 500 mg capsule 500 mg PO TID PRN Pain 04/08/21 07/10/24 Unknown History docusate sodium 100 mg capsule 100 mg PO BID PRN Constipation 04/08/21 07/10/24 Unknown History (Dulcolax Stool Softener (docusate)) ranolazine 500 mg tablet,extended 500 mg PO Q12H 08/04/21 07/10/24 Unknown History release,12 hr tamsulosin 0.4 mg capsule 0.4 mg PO DIRECTED 10/13/23 07/10/24 Unknown History Allergies Allergy/AdvReac Type Severity Reaction Status Date / Time morphine Allergy Intermediate Vomiting Verified 07/10/24 14:27 spironolactone Allergy Intermediate Hives Verified 07/10/24 14:27 Review of Systems Review of Systems: A 10 system review of systems was completed on the patient and is negative except for what is stated in the HPI. Nursing and ancillary documentation was reviewed. [facility] Past Medical History Medical History Adenocarcinoma, lung AAA (abdominal aortic aneurysm) Allergies Chronic back pain Erectile dysfunction Frozen shoulder Hypertension Surgical History Surgical History History of back surgery Multiple H/O shoulder surgery Left 05/2008 Family History Family History Father Malignant neoplasm of prostate Other Cerebrovascular accident Diabetes mellitus Family history of arthritis Family history of cardiovascular disease Family history of kidney disease Family history of malignant neoplasm Hypertension Social History Social History Smoking packs per day: 1 Smoking cigarettes per day: 20.0 Years smoked: 57 Smoking pack-years: 57.00 Smoking status: Current every day smoker Tobacco type: cigarettes Second hand tobacco smoke exposure: No Smoking end date: 11/07/23 Additional smoking assessment comments: CURRENTLY SMOKES 10 CIGARETTES IN 5 DAYS Alcohol intake: former Substance use: never Substance use type: does not use Lack of Transportation: No Lack of Food: Never True Current Housing: I Have Housing Concerned About Future Housing: No Difficulty Paying Gas/Electric Bills: No Difficulty Paying for Meds: No Currently Unemployed: No Education: Master's Degree or Higher Difficulty w/ Childcare or Family Care: No Living arrangements: with family Spiritual care concerns: No Exam Narrative: GENERAL: Well-appearing, well-nourished, and in no acute distress. HEAD: Normocephalic, atraumatic. EYES: PERRLA and EOMI. ENT: Nares clear, no rhinorrhea or epistaxis. Mucous membranes moist. NECK: Supple. CHEST: Scattered wheezes to auscultation. No respiratory distress. HEART: Regular rate and rhythm. No murmur heard. Normal peripheral pulses. ABDOMEN: Soft, nontender, nondistended, normal active bowel sounds. EXTREMITIES: Normal range of motion. No edema. SKIN: Warm, dry, no rash. NEURO: No focal deficits. Alert and oriented x3. PSYCH: Normal mood and affect. Course Vital Signs Vital signs: Vital Signs Temperature 36.7 C 07/21/24 23:00 Pulse Rate 98 07/21/24 23:00 Respiratory Rate 17 07/21/24 23:00 Blood Pressure 114/71 07/21/24 23:00 Pulse Oximetry 100 07/21/24 23:00 Oxygen Delivery Room Air 07/21/24 23:00 Temperature 36.7 C 07/21/24 23:00 Pulse Rate 88 07/22/24 04:16 Respiratory Rate 15 07/22/24 04:16 Blood Pressure 125/78 07/22/24 04:16 Pulse Oximetry 100 07/22/24 04:16 Oxygen Delivery BiPAP 07/22/24 01:56 Oxygen Flow Rate 2 07/21/24 23:44 Medical Decision Making MDM Narrative Medical decision making narrative: Differential diagnosis includes pneumonia, pulmonary embolism, COPD exacerbation The patient was found to have a respiratory acidosis on blood gas. Patient was started on BiPAP the patient was initially hypotensive received 30 per kilos normal saline boluses COVID flu and RSV were negative BNP was 1300 troponin was negative at 0 hour and 3 hour Vital Signs Vital Signs: Vital Signs Temperature 36.7 C 07/21/24 23:00 Pulse Rate 98 07/21/24 23:00 Respiratory Rate 17 07/21/24 23:00 Blood Pressure 114/71 07/21/24 23:00 Pulse Oximetry 100 07/21/24 23:00 Oxygen Delivery Room Air 07/21/24 23:00 Temperature 36.7 C 07/21/24 23:00 Pulse Rate 88 07/22/24 04:16 Respiratory Rate 15 07/22/24 04:16 Blood Pressure 125/78 07/22/24 04:16 Pulse Oximetry 100 07/22/24 04:16 Oxygen Delivery BiPAP 07/22/24 01:56 Oxygen Flow Rate 2 07/21/24 23:44 Lab Data 07/21/24 23:27 07/21/24 23:27 Labs: Lab Results 07/21/24 07/22/24 07/22/24 Range/Units 23:27 00:43 02:45 WBC 8.3 (4.5-10.0) K/mm3 RBC 3.53 L (4.6-6.20) M/mm3 Hgb 10.7 L (14.0-18.0) g/dL Hct 33.3 L (42.0-52.0) % MCV 94.3 (80-100) fl MCH 30.3 (26-34) pg MCHC 32.1 (32-36) g/dl RDW 14.6 H (11.5-14.5) % Plt Count 239 (150-375) k/mm3 MPV 10.3 (7.4-10.4) fl Immature Gran % (Auto) 0.4 (0-0.5) % Neut % (Auto) 78.9 H (45.5-73.1) % Lymph % (Auto) 8.1 L (18.3-44.2) % [place] % (Auto) 11.1 H (2.6-8.5) % Eos % (Auto) 1.3 (0-4.4) % Baso % (Auto) 0.2 (0.2-1.2) % Lymph # (Auto) 0.67 L (0.9-3.2) K/mm3 [place] # (Auto) 0.9 H (0.1-0.6) K/mm3 Eos # (Auto) 0.1 (0-0.3) K/mm3 Baso # (Auto) 0.0 (0.0-0.1) K/mm3 Abs Immat Gran (auto) 0.03 (0.00-0.031) K/mm3 Absolute Neuts (auto) 6.5 (1.3-6.7) K/mm3 Absolute Nucleated RBC 0.000 (0.0-0.012) K/mm3 Nucleated RBC % 0.0 (0.0-0.2) % PT 13.8 (11.1-14.7) Seconds INR 1.0 APTT 31.3 (22.3-36.8) Seconds Sodium 131 L (137-145) mmol/L Potassium 4.0 (3.4-5.0) mmol/L Chloride 97 L (98-107) mmol/L Carbon Dioxide 25 (22-30) mmol/L Anion Gap 9 (4-12) mmol/L BUN 29 H (9-20) mg/dL Creatinine 1.14 (0.7-1.3) mg/dL Estim Creat Clear Calc 60 ml/min Estimated GFR > 60 (59 - ) Glucose 110 (65-110) mg/dL Lactic Acid 0.8 (0.7-2.0) mmol/L Calcium 8.8 (8.4-10.2) mg/dL Magnesium 1.9 (1.6-2.3) mg/dL Total Bilirubin 0.5 (0.2-1.3) mg/dL AST 20 (17-59) U/L ALT 12 (6-50) U/L Alkaline Phosphatase 79 (38-126) U/L Troponin I < 0.012 < 0.012 (0.000-0.034) ng/mL NT-Pro-B Natriuret Pep 1300 H (19.9-100) pg/mL Total Protein 7.0 (6.3-8.2) g/dL Albumin 3.5 (3.5-5.1) g/dL Lipase 19 L (23-300) U/L Influenza A (RT-PCR) Negative (Negative) Influenza B (RT-PCR) Negative (Negative) RSV (RT-PCR) Negative (Negative) SARS-CoV-2 RNA (RT-PCR) Negative (Negative) ABG Data ABG results: 07/22/24 01:14 Puncture Site Right radial ABG pH 7.297 L* ABG pCO2 50.7 H ABG pO2 64.6 L ABG PO2/FiO2 Ratio 2.31 ABG HCO3 24.2 ABG O2 Saturation 90.2 L ABG O2 Content 13.5 L ABG Base Excess -2.5 A-a Gradient 75.2 Oxyhemoglobin 86.5 L* Total Hemoglobin 11.1 L O2 Delivery Device Nasal cannula O2 Liters/Min 2.0 FiO2 28 Critical Care Time Critical Care Time Critical Care Time: Yes Total Critical Care Time: 35 Discharge Plan Discharge Clinical Impression: Acute hypercapnic respiratory failure, Asthma exacerbation in COPD Patient Disposition: Still a Patient Condition: Stable Patient Language: [place]ar[place] Prescriptions: No Action tamsulosin 0.4 mg capsule 0.4 mg PO DIRECTED oxycodone [OxyContin] 10 mg tablet,oral only,ext.rel.12 hr 10 mg PO Q12H Qty: 20 0RF Rx Instructions: I tab PO at 8am and 8pm oxycodone [OxyContin] 10 mg tablet,oral only,ext.rel.12 hr 10 mg PO Q12H Qty: 60 0RF cyclobenzaprine 10 mg tablet 10 mg PO TID PRN (Reason: Spasms) fluticasone propionate [Flonase Allergy Relief] 50 mcg/actuation spray,suspension 2 spray NASAL DAILY Rx Instructions: administer into each nostril gabapentin 300 mg capsule 300 mg PO TID PRN (Reason: Pain) ranolazine 500 mg tablet extended release 12 hr 500 mg PO Q12H Rx Instructions: PRESCRIBED BY CARDIOLOGY hydrocodone-acetaminophen 10-325 mg tablet 1 tablet PO .4-6H PRN (Reason: pain) Qty: 42 0RF hydrochlorothiazide 25 mg tablet 25 mg PO DAILY aspirin [Children's Aspirin] 81 mg Tablet,Chewable 81 mg PO DAILY@0800 Qty: 30 0RF atorvastatin 40 mg Tablet 40 mg PO DAILY Qty: 30 3RF nitroglycerin [Nitrostat] 0.4 mg Tablet, Sublingual 0.4 mg sublingual Q5MIN PRN (Reason: Chest Pain) Qty: 30 0RF docusate sodium [Dulcolax Stool Softener (dss)] 100 mg Capsule 100 mg PO BID PRN (Reason: Constipation) acetaminophen 500 mg Capsule 500 mg PO TID PRN (Reason: Pain) albuterol sulfate 90 mcg/actuation HFA aerosol inhaler 2 inh inhalation Q4-6H PRN (Reason: shortness of breath or wheezing) Qty: 8.5 3RF Stiolto Respimat 2.5-2.5 mcg/actuation mist See Rx Instructions .ROUTE .COMPLEX Qty: 4 6RF Dose Instruction: INHALE 2 PUFFS BY MOUTH EVERY DAY Rx Instructions: INHALE 2 PUFFS BY MOUTH EVERY DAY lisinopril 30 mg tablet 30 mg PO DAILY Qty: 90 1RF Follow-up/Referrals: Brant Wei DO [Primary Care Provider] - Time of Disposition: 04:24
[2024-07-22] MEDS: methylPREDNISolone SOD SUCC 125 MG VIAL 60 MG IV PUSH (05:00)
--- NOTE | 2024-07-22 05:17 | PC.NURSE ---
pt visitor called out using the call light appropriately stating, He needs to go to the bathroom . upon arrival to assess patient, patient had pulled the bipap off, removed vital equipment, thrashing in the bed, screaming, I have to go to the bathroom, I can;t breath . x3 Rns and x2 techs were at bedside to attempt to help patient. bipap was returned to correct application on patient. pt was then sat back in the bed and was provided a urinal to urinate.
[2024-07-22 06:33] LABS: Troponin I < 0.012 ng/mL (0.000-0.034)
--- NOTE | 2024-07-22 07:28 | PM.IMHP ---
H&P: HPI History of Present Illness Date/Time: 07/22/24 07:28 Chief Complaint: SOB Narrative: 58 M with PMHx of lung adenocarcinoma s/p RU lobectomy on 09/26/2023, restrictive lung disease, tobacco use. Patient follows with Oncology and receives cisplatinum and Alimta. Patient was recently treated for bronchitis in April 2024 with prednisone for 5 days and Z-Nick.PET scan with pleural based mass. ?Patient had ultrasound-guided right chest wall mass done on 06/27/2024 positive for adenocarcinoma. ?Referred to Radiation Oncology.? Started treatment with Tecentriq, Carboplatinum, paclitaxel and avastin. Patient came to ED because of shortness of breath. Pertinent ED labs: WBC 8.3, hemoglobin 10.7, hematocrit 33.3, platelet 239, sodium 131, potassium 4, chloride 97, BUN 29, creatinine 1.14 Troponin negative BNP 1300 ABG on nasal cannula: PH 7.297, pCO2 50.7, O2 64.6, O2 saturation 90.2 QuantiFERON, COVID RSV, flu negative Chest CTA:No definite pulmonary embolus seen. 7.4 x 5.5 x 5.63 mass along the right heart border extending to the right hilum and right paratracheal stripe, compatible with malignancy, markedly progressed from prior exam. 3.3 cm subcarinal metastatic lymph node is also markedly progressed from prior exam. 2.5 cm possible pleural-based metastasis at the posterior right upper lobe. Questionable small lingular nodule versus scarring or atelectasis. Probable extensive right upper lobe atelectasis. Possible esophagitis. Cholelithiasis and right adrenal adenoma. Patient is currently admitted on possibility COPD exacerbation. Patient will be started on ceftriaxone and doxycycline. Patient has possibility of radiation pneumonitis versus bronchitis versus COPD exacerbation with superimposed bacterial or viral infection. ED physician spoke to me since his blood pressure on lower side and he discussed with the family and the patient, who opted for comfort care/hospice. Patient is admitted under hospice Review of Systems Review of Systems: A 10 system review of systems was completed on the patient and is negative except for what is stated in the HPI. Nursing and ancillary documentation was reviewed. [facility] Past Medical History Medical History Adenocarcinoma, lung AAA (abdominal aortic aneurysm) Allergies Chronic back pain Erectile dysfunction Frozen shoulder Hypertension Surgical History Surgical History History of back surgery Multiple H/O shoulder surgery Left 05/2008 Family History Family History Father Malignant neoplasm of prostate Other Cerebrovascular accident Diabetes mellitus Family history of arthritis Family history of cardiovascular disease Family history of kidney disease Family history of malignant neoplasm Hypertension Social History Social History (Updated 07/22/24 @ 16:53 by Giovanny Cristobal MD) Smoking packs per day: 1 Smoking cigarettes per day: 20.0 Years smoked: 57 Smoking pack-years: 57.00 Smoking status: Current every day smoker Tobacco type: cigarettes Second hand tobacco smoke exposure: No Smoking end date: 11/07/23 Additional smoking assessment comments: CURRENTLY SMOKES 10 CIGARETTES IN 5 DAYS Alcohol intake: never Substance use: never Substance use type: does not use Lack of Transportation: No Lack of Food: Never True Current Housing: I Have Housing Concerned About Future Housing: No Difficulty Paying Gas/Electric Bills: No Difficulty Paying for Meds: No Currently Unemployed: No Education: Master's Degree or Higher Difficulty w/ Childcare or Family Care: No Living arrangements: with family Spiritual care concerns: Yes Meds Home Medications and Allergies Home Medications ?Medication ?Instructions ?Recorded ?Confirmed ?Type cyclobenzaprine 10 mg tablet 10 mg PO TID PRN Spasms 07/15/19 07/22/24 History fluticasone propionate 50 2 spray intranasal DAILY 07/15/19 07/22/24 History mcg/actuation nasal spray,suspension (Flonase Allergy Relief) gabapentin 300 mg capsule 300 mg PO TID PRN Pain 07/15/19 07/22/24 History hydrochlorothiazide 25 mg tablet 25 mg PO DAILY 12/09/20 07/22/24 History aspirin 81 mg chewable tablet 81 mg PO DAILY@0800 #30 tabs 12/11/20 07/22/24 Rx (Children's Aspirin) atorvastatin 40 mg tablet 40 mg PO DAILY #30 tabs 12/11/20 07/22/24 Rx nitroglycerin 0.4 mg sublingual 0.4 mg sublingual Q5MIN PRN Chest 12/11/20 07/22/24 Rx tablet (Nitrostat) Pain #30 tabs acetaminophen 500 mg capsule 500 mg PO TID PRN Pain 04/08/21 07/22/24 History docusate sodium 100 mg capsule 100 mg PO BID PRN Constipation 04/08/21 07/22/24 History (Dulcolax Stool Softener (docusate)) ranolazine 500 mg tablet,extended 500 mg PO Q12H 08/04/21 07/22/24 History release,12 hr tamsulosin 0.4 mg capsule 0.4 mg PO DIRECTED 10/13/23 07/22/24 History hydrocodone 10 mg-acetaminophen 1 tablet PO .4-6H PRN pain #42 tabs 10/16/23 07/22/24 Rx 325 mg tablet albuterol sulfate 90 mcg/actuation 2 inh inhalation Q4-6H PRN 11/02/23 07/22/24 Rx aerosol inhaler shortness of breath or wheezing #8.5 grams oxycodone 10 mg tablet,crush 10 mg PO Q12H #20 tabs 07/09/24 07/22/24 Rx resistant,extended release 12 hr (OxyContin) oxycodone 10 mg tablet,crush 10 mg PO Q12H #60 tabs 07/11/24 07/22/24 Rx resistant,extended release 12 hr (OxyContin) tiotropium 2.5 mcg-olodaterol 2.5 See Rx Instructions .Route 07/12/24 07/22/24 Rx mcg/actuation mist for inhalation .COMPLEX #4 mL (Stiolto Respimat) lisinopril 30 mg tablet 30 mg PO DAILY #90 tabs 07/19/24 07/22/24 Rx Allergies Allergy/AdvReac Type Severity Reaction Status Date / Time morphine Allergy Intermediate Vomiting Verified 07/22/24 08:54 spironolactone Allergy Intermediate Hives Verified 07/22/24 08:54 Vital Signs Vital Signs - 24 hr 07/21/24 23:00 07/21/24 23:11 07/21/24 23:11 Temperature 98.1 F Pulse Rate 98 98 Respiratory Rate 17 Blood Pressure 114/71 Pulse Oximetry 100 100 Oxygen Delivery Room Air Non-Rebreather Mask Oxygen Flow Rate 16 07/21/24 23:11 07/21/24 23:42 07/21/24 23:43 Temperature Pulse Rate 99 100 Respiratory Rate 17 18 Blood Pressure 114/71 90/62 L Pulse Oximetry 100 91 87 L Oxygen Delivery Room Air Oxygen Flow Rate 07/21/24 23:43 07/21/24 23:43 07/21/24 23:44 Temperature Pulse Rate 100 Respiratory Rate 19 Blood Pressure 95/62 L Pulse Oximetry 93 91 93 Oxygen Delivery Nasal Cannula Nasal Cannula Oxygen Flow Rate 2 2 07/21/24 23:46 07/22/24 00:01 07/22/24 00:17 Temperature Pulse Rate 100 98 100 Respiratory Rate 18 18 19 Blood Pressure 105/66 116/61 111/57 L Pulse Oximetry 92 90 97 Oxygen Delivery Oxygen Flow Rate 07/22/24 00:31 07/22/24 00:46 07/22/24 00:55 Temperature Pulse Rate 97 97 97 Respiratory Rate 20 18 22 H Blood Pressure 89/56 L 107/67 Pulse Oximetry 97 97 Oxygen Delivery Oxygen Flow Rate 07/22/24 01:01 07/22/24 01:06 07/22/24 01:16 Temperature Pulse Rate 98 97 98 Respiratory Rate 15 22 H 22 H Blood Pressure 89/66 L 87/64 L Pulse Oximetry 100 92 Oxygen Delivery Oxygen Flow Rate 07/22/24 01:45 07/22/24 01:54 07/22/24 01:56 Temperature Pulse Rate 94 94 Respiratory Rate 16 16 Blood Pressure 90/59 L Pulse Oximetry 98 98 98 Oxygen Delivery BiPAP BiPAP Oxygen Flow Rate 07/22/24 02:01 07/22/24 02:20 07/22/24 02:31 Temperature Pulse Rate 93 90 88 Respiratory Rate 17 15 15 Blood Pressure 87/56 L 81/53 L 78/50 L Pulse Oximetry 98 98 98 Oxygen Delivery Oxygen Flow Rate 07/22/24 02:44 07/22/24 02:46 07/22/24 02:55 Temperature Pulse Rate 87 86 85 Respiratory Rate 15 13 15 Blood Pressure 76/48 L 83/51 L 80/51 L Pulse Oximetry 98 98 98 Oxygen Delivery Oxygen Flow Rate 07/22/24 03:01 07/22/24 03:03 07/22/24 03:31 Temperature Pulse Rate 83 83 80 Respiratory Rate 15 16 15 Blood Pressure 78/49 L 86/55 L 84/49 L Pulse Oximetry 98 98 100 Oxygen Delivery Oxygen Flow Rate 07/22/24 03:46 07/22/24 04:01 07/22/24 04:16 Temperature Pulse Rate 79 82 88 Respiratory Rate 17 14 15 Blood Pressure 86/53 L 106/70 125/78 Pulse Oximetry 100 100 Oxygen Delivery Oxygen Flow Rate 07/22/24 04:31 07/22/24 04:46 07/22/24 05:01 Temperature Pulse Rate 87 89 99 Respiratory Rate 16 18 14 Blood Pressure 117/70 115/56 L Pulse Oximetry 100 100 80 L Oxygen Delivery BiPAP Oxygen Flow Rate 07/22/24 05:01 07/22/24 05:02 07/22/24 05:53 Temperature Pulse Rate 90 88 94 Respiratory Rate 34 H 16 19 Blood Pressure 107/77 107/77 116/71 Pulse Oximetry 100 100 100 Oxygen Delivery Oxygen Flow Rate 07/22/24 06:01 07/22/24 06:03 07/22/24 06:30 Temperature Pulse Rate 93 93 92 Respiratory Rate 16 17 18 Blood Pressure 100/63 100/63 113/59 L Pulse Oximetry 100 100 Oxygen Delivery Oxygen Flow Rate 07/22/24 07:16 Temperature Pulse Rate 91 Respiratory Rate 17 Blood Pressure 119/62 Pulse Oximetry 100 Oxygen Delivery Oxygen Flow Rate Exam Narrative: GENERAL: Well-appearing, well-nourished, and in no acute distress. HEAD: Normocephalic, atraumatic. EYES: PERRLA and EOMI. ENT: Nares clear, no rhinorrhea or epistaxis. Mucous membranes moist. NECK: Supple. CHEST: Scattered wheezes to auscultation. No respiratory distress. HEART: Regular rate and rhythm. No murmur heard. Normal peripheral pulses. ABDOMEN: Soft, nontender, nondistended, normal active bowel sounds. EXTREMITIES: Normal range of motion. No edema. SKIN: Warm, dry, no rash. NEURO: No focal deficits. Alert and oriented x3. PSYCH: Normal mood and affect. H&P: Results Labs Labs: Short CBC 07/21/24 Range/Units 23:27 WBC 8.3 (4.5-10.0) K/mm3 Hgb 10.7 L (14.0-18.0) g/dL Hct 33.3 L (42.0-52.0) % Plt Count 239 (150-375) k/mm3 [facility] 07/21/24 23:27 Sodium 131 L Potassium 4.0 Chloride 97 L Carbon Dioxide 25 BUN 29 H Creatinine 1.14 Glucose 110 Calcium 8.8 Cardiac Enzymes 07/21/24 07/22/24 07/22/24 Range/Units 23:27 02:45 06:00 Troponin I < 0.012 < 0.012 < 0.012 (0.000-0.034) ng/mL Liver Function 07/21/24 Range/Units 23:27 Total Bilirubin 0.5 (0.2-1.3) mg/dL AST 20 (17-59) U/L ALT 12 (6-50) U/L Alkaline Phosphatase 79 (38-126) U/L Albumin 3.5 (3.5-5.1) g/dL Assessment and Plan Assessment and plan (1) Hypertension: Qualifiers: Hypertension type: essential hypertension Qualified Code(s): I10 - Essential (primary) hypertension Code(s): I10 - Essential (primary) hypertension Status: Acute (2) CAD (coronary artery disease): Qualifiers: Associated angina: unspecified whether angina present Coronary Disease-Associated Artery/Lesion type: unspecified vessel or lesion type [place] vs. transplanted heart: [place] heart Qualified Code(s): I25.10 - Atherosclerotic heart disease of [place] coronary artery without angina pectoris Code(s): I25.10 - Atherosclerotic heart disease of [place] coronary artery without angina pectoris Status: Acute (3) COPD (chronic obstructive pulmonary disease): Code(s): J44.9 - Chronic obstructive pulmonary disease, unspecified Status: Acute (4) Asthma exacerbation in COPD: Code(s): J44.1 - Chronic obstructive pulmonary disease with (acute) exacerbation Status: Acute (5) Lung nodule: Code(s): R91.1 - Solitary pulmonary nodule Status: Acute Plan COPD Exacerbation Recent exacerbation of COPD 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 -CT scan chest done on April 16, 2024 shows worsening of 1.7 cm pleural based nodule in the right lower lobe suspicious for primary bronchogenic carcinoma of metastatic disease. -the PET scan done on May 07 showed pleural based mass with increased activity in the right thorax and MRs in the lateral right lateral chest wall with the increased activity consistent with metastatic disease. There is a 2.1 cm right lower lobe mass at the pleura with a maximum SUV of 8.9 -patient had a right lateral chest wall mass measures 4.4 x 4.2 x 3.2 cm biopsy done on June 2024 came back positive for adeno carcinoma of lung -as per Dr. Gilman note he discussed with the patient is not a surgical candidate and he is going to start radiation therapy treatment on July 18 and will have 5 treatment. He will start chemotherapy after the completion of radiation therapy treatment with carboplatin Taxol, Tecentriq and Avastin and then he will follow with for cycle #2 Of chemotherapy in about 6 weeks Imaging: -PET scan 05/07/2024: 1. Pleural-based masses with increased activity in right thorax and a mass in right lateral chest wall with increased activity, consistent with metastatic disease. 2. Pneumonia involving left upper lobe and left lower lobe. 3. Mass again seen between multiple right-sided rib fractures and the inferior scapula, most likely scapulothoracic bursitis -underwent ultrasound-guided biopsy of the chest wall on 06/27/2024 . -07/21/2024:Chest CTA: No definite pulmonary embolus seen. 7.4 x 5.5 x 5.63 mass along the right heart border extending to the right hilum and right paratracheal stripe, compatible with malignancy, markedly progressed from prior exam. 3.3 cm subcarinal metastatic lymph node is also markedly progressed from prior exam. 2.5 cm possible pleural-based metastasis at the posterior right upper lobe. Questionable small lingular nodule versus scarring or atelectasis. Probable extensive right upper lobe atelectasis. Possible esophagitis. Cholelithiasis and right adrenal adenoma. Disposition: Admitted under hospice Hospitalist MIPS Advance Care Plan I have confirmed that the patient's Advanced Care Plan is present, code status is documented, or surrogate decision maker is listed in patient medical record.: Yes Medication Reconciliation I have utilized all available resources to obtain, update and review the patients current medications (includes all prescriptions, OTC, herbals, cannabis, and nutritional supplements).: Yes
--- NOTE | 2024-07-22 07:29 | PC.NURSE ---
During bedside shift report, pt self removed bipap mask 2 times. Pt was educated on importance of keeping bipap on as it is helping him breathe, pt verbalized understanding both times.
[2024-07-22] MEDS: IPRATROPIUM 0.5 MG/ALBUTEROL SULFATE 2.5 MG AMPUL.NEB 3 ML INHALATION (08:12)
--- NOTE | 2024-07-22 09:14 | PC.NURSE ---
Spoke with ED loaf counter about pts BP and contacting the hospitalist. EDP Dr. Garcia overheard conversation and stated he would go see pt. EDP Dr. Garcia at bedside with this RN as patient is stating he does not want ventilator or central line placement and wants to be comfortable. EDP Dr. Garcia discussed options for pts future, family verbalized understand. Pts family are discussing options and will let this RN know about comfort care only decision.
--- NOTE | 2024-07-22 09:32 | PC.NURSE ---
Pts family states pt wants to go home on hospice. EDP Dr. Garcia notified, EDP Dr. Garcia at bedside. Hospitalist, Dr. REA notified of change, provider is in agreement with pts plan of care. ED Care coordination contacted.
[2024-07-22] MEDS: LORazepam INJ (*CRX) 2 MG/ML VIAL IV PUSH (09:57)
[2024-07-22] MEDS: HYDROmorphone HCL INJ (*CRX) 1 MG/ML SYR IV PUSH (09:57)
--- NOTE | 2024-07-22 10:54 | PC.NURSE ---
This patient, Andre Han Jr., was admitted to 3 [facility] Surg Room 301-01. Patient/family oriented to hospital policies and general routines including ID bracelet, bed and alarms, visiting hours, pain management, procedures, bathroom and other care routines, personal items, smoking policy, room service/diet, and visiting hours. Information on how to activate the Rapid Response Team has been discussed. Patient/Family are encouraged to report perceived risks to care and to ask questions if they do not understand what they are told or what they should do.
[2024-07-22] MEDS: HYDROmorphone HCL/PF (*CRX) 50 MG in SODIUM CHLORIDE 0.9% IV 95 ML IV CONT (10:56)
[2024-07-22] MEDS: GLYCOPYRROLATE INJ (*SP) 0.2 MG/ML VIAL IV PUSH (11:06)
[2024-07-22] MEDS: LORazepam INJ (*CRX) 2 MG/ML VIAL 0.5 MG IV PUSH (12:27)
--- NOTE | 2024-07-22 13:29 | PCCCNOTE ---
0930: Called to the ED to speak with the pt and family regarding hospice. Pt. has a BIPAP on at the time, but does not want to continue with this. He and his have decided to go on comfort care only and the decision was made to use [facility] hospice. The pt is being treated for comfort in the ED. We will call in hospice once pt is taken to his room. 1155: Pt was moved to a room and his referral was made to [facility], awaiting return call. 1315: Call placed to [facility] for an ETA. Update given, admission coordinator will be here within the hour.
[2024-07-22] MEDS: LORazepam INJ (*CRX) 2 MG/ML VIAL 1 MG IV PUSH (14:00)
--- NOTE | 2024-07-23 19:04 | PM.DS ---
DS: Admitting Diagnosis Discharge Date 07/22/24 Admitting Diagnosis SOB DS: Discharge Diagnosis Discharge Diagnosis (1) Hypertension: Qualifiers: Hypertension type: essential hypertension Qualified Code(s): I10 - Essential (primary) hypertension Code(s): I10 - Essential (primary) hypertension Status: Acute (2) CAD (coronary artery disease): Qualifiers: Coronary Disease-Associated Artery/Lesion type: unspecified vessel or lesion type [place] vs. transplanted heart: [place] heart Associated angina: unspecified whether angina present Qualified Code(s): I25.10 - Atherosclerotic heart disease of [place] coronary artery without angina pectoris Code(s): I25.10 - Atherosclerotic heart disease of [place] coronary artery without angina pectoris Status: Acute (3) COPD (chronic obstructive pulmonary disease): Code(s): J44.9 - Chronic obstructive pulmonary disease, unspecified Status: Acute (4) Asthma exacerbation in COPD: Code(s): J44.1 - Chronic obstructive pulmonary disease with (acute) exacerbation Status: Acute (5) Lung nodule: Code(s): R91.1 - Solitary pulmonary nodule Status: Acute Plan COPD Exacerbation Recent exacerbation of COPD 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 -CT scan chest done on April 16, 2024 shows worsening of 1.7 cm pleural based nodule in the right lower lobe suspicious for primary bronchogenic carcinoma of metastatic disease. -the PET scan done on May 07 showed pleural based mass with increased activity in the right thorax and MRs in the lateral right lateral chest wall with the increased activity consistent with metastatic disease. There is a 2.1 cm right lower lobe mass at the pleura with a maximum SUV of 8.9 -patient had a right lateral chest wall mass measures 4.4 x 4.2 x 3.2 cm biopsy done on June 2024 came back positive for adeno carcinoma of lung -as per Dr. Gilman note he discussed with the patient is not a surgical candidate and he is going to start radiation therapy treatment on July 18 and will have 5 treatment. He will start chemotherapy after the completion of radiation therapy treatment with carboplatin Taxol, Tecentriq and Avastin and then he will follow with for cycle #2 Of chemotherapy in about 6 weeks Imaging: -PET scan 05/07/2024: 1. Pleural-based masses with increased activity in right thorax and a mass in right lateral chest wall with increased activity, consistent with metastatic disease. 2. Pneumonia involving left upper lobe and left lower lobe. 3. Mass again seen between multiple right-sided rib fractures and the inferior scapula, most likely scapulothoracic bursitis -underwent ultrasound-guided biopsy of the chest wall on 06/27/2024 . -07/21/2024:Chest CTA: No definite pulmonary embolus seen. 7.4 x 5.5 x 5.63 mass along the right heart border extending to the right hilum and right paratracheal stripe, compatible with malignancy, markedly progressed from prior exam. 3.3 cm subcarinal metastatic lymph node is also markedly progressed from prior exam. 2.5 cm possible pleural-based metastasis at the posterior right upper lobe. Questionable small lingular nodule versus scarring or atelectasis. Probable extensive right upper lobe atelectasis. Possible esophagitis. Cholelithiasis and right adrenal adenoma. Disposition: Admitted under hospice DS: Summary Hospital Course Hospital Course: 58 M with PMHx of lung adenocarcinoma s/p RU lobectomy on 09/26/2023, restrictive lung disease, tobacco use. Patient follows with Oncology and receives cisplatinum and Alimta. Patient was recently treated for bronchitis in April 2024 with prednisone for 5 days and Z-Nick.PET scan with pleural based mass. ?Patient had ultrasound-guided right chest wall mass done on 06/27/2024 positive for adenocarcinoma. ?Referred to Radiation Oncology.? Started treatment with Tecentriq, Carboplatinum, paclitaxel and avastin. Patient came to ED because of shortness of breath. Pertinent ED labs: WBC 8.3, hemoglobin 10.7, hematocrit 33.3, platelet 239, sodium 131, potassium 4, chloride 97, BUN 29, creatinine 1.14 Troponin negative BNP 1300 ABG on nasal cannula: PH 7.297, pCO2 50.7, O2 64.6, O2 saturation 90.2 QuantiFERON, COVID RSV, flu negative Chest CTA:No definite pulmonary embolus seen. 7.4 x 5.5 x 5.63 mass along the right heart border extending to the right hilum and right paratracheal stripe, compatible with malignancy, markedly progressed from prior exam. 3.3 cm subcarinal metastatic lymph node is also markedly progressed from prior exam. 2.5 cm possible pleural-based metastasis at the posterior right upper lobe. Questionable small lingular nodule versus scarring or atelectasis. Probable extensive right upper lobe atelectasis. Possible esophagitis. Cholelithiasis and right adrenal adenoma. Patient is currently admitted on possibility COPD exacerbation. Patient will be started on ceftriaxone and doxycycline. Patient has possibility of radiation pneumonitis versus bronchitis versus COPD exacerbation with superimposed bacterial or viral infection. ED physician spoke to me since his blood pressure on lower side and he discussed with the family and the patient, who opted for comfort care/hospice. Patient is admitted under hospice Status at Discharge Cognitive/behavioral status at discharge: Guarded Time Spent with Patient Time attestation: Total time spent providing and/or coordinating discharge services:45 minutes Exam Narrative: GENERAL: Well-appearing, well-nourished, and in no acute distress. HEAD: Normocephalic, atraumatic. EYES: PERRLA and EOMI. ENT: Nares clear, no rhinorrhea or epistaxis. Mucous membranes moist. NECK: Supple. CHEST: Scattered wheezes to auscultation. No respiratory distress. HEART: Regular rate and rhythm. No murmur heard. Normal peripheral pulses. ABDOMEN: Soft, nontender, nondistended, normal active bowel sounds. EXTREMITIES: Normal range of motion. No edema. SKIN: Warm, dry, no rash. NEURO: No focal deficits. Alert and oriented x3. PSYCH: Normal mood and affect. DS: Data Data Completed and Pending Labs on day of discharge: Preliminary micro results at discharge 07/22/24 00:58 Blood Culture - Preliminary Blood 07/22/24 00:43 Blood Culture - Preliminary Blood Discharge Plan Discharge Attending physician on discharge: Khoa Carmen Consulting providers: Ross Delgado; Shay Ybarra Discharging Clinician: Khoa Carmen Patient Disposition: [facility] In[facility] Patient Language: Arabic Date of admission: 07/22/24 04:38 Primary Care Provider: Bratn Wei Admitting Provider: Guille Mcfadden Attending physician on admission: Khoa Carmen Condition: Guarded Prognosis
== END 2024-07-22 15:01 | disposition hospice, inpatient (51) ==
LOC: ANHED 07-22 04:24 → ANHIMU 07-23 07:31 → ANH3MEDSUR 07-23 07:31
PROVIDERS: Admitting Provider Internal Medicine; Emergency Provider Emergency Medicine; PCP Internal Medicine; Visit Provider General Practice
DX: J44.1 Chronic obstructive pulmonary disease with (acute) exacerbation (principal); J45.901 Unspecified asthma with (acute) exacerbation; J96.02 Acute respiratory failure with hypercapnia; C34.90 Malignant neoplasm of unspecified part of unspecified bronchus or lung; R91.1 Solitary pulmonary nodule; J98.4 Other disorders of lung; I25.10 Atherosclerotic heart disease of native coronary artery without angina pectoris; I71.40 Abdominal aortic aneurysm, without rupture, unspecified; I10 Essential (primary) hypertension; F17.210 Nicotine dependence, cigarettes, uncomplicated; Z20.822 Contact with and (suspected) exposure to COVID-19; Z90.2 Acquired absence of lung [part of]; Z79.51 Long term (current) use of inhaled steroids; Z79.82 Long term (current) use of aspirin; Z79.899 Other long term (current) drug therapy
CPT/HCPCS: 36415; 36600; 71045; 71275; 80053; 82805; 83605; 83690; 83735; 83880; 84484; 85018; 85025; 85610; 85730; 87040; 87637; 93005; 94002; 94640; 96361; 96372; 96374; 96375; 96376; 99285; G0378; J1171; J1596; J2060; J2919; J7030; Q9967

== ENCOUNTER 2024-07-22 15:02 | HOS | payer OTHER, MEDICARE, SELFPAY ==
[2024-07-22] MEDS: HYDROmorphone HCL/PF (*CRX) 50 MG in SODIUM CHLORIDE 0.9% IV 95 ML IV CONT (15:45)
[2024-07-22] MEDS: HYDROmorphone HCL INJ (*CRX) 1 MG/ML SYR 2 MG IV PUSH (15:49)
[2024-07-22 16:41] VITALS: BMI 30.3
--- NOTE | 2024-07-22 16:48 | P.HP_ITS ---
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 He underwent a right upper lobectomy in September of 2023. In June of 2024 he had needle biopsy of chest wall mass that came back poorly differentiated adenocarcinoma. He was evaluated for radiation therapy but did not start this yet. He had progressive increased dyspnea. 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 Oxygen saturation were 67% on room air when EMS arrived to transport him. He did not tolerate BiPAP and did not wanted. He and his family wished for comfort care only. Review of Systems Review of Systems: ROS unobtainable: Yes unobtainable due to medical condition PMFSH Past Medical History Medical History Adenocarcinoma, lung AAA (abdominal aortic aneurysm) Allergies Chronic back pain Erectile dysfunction Frozen shoulder Hypertension Surgical History Surgical History History of back surgery Multiple H/O shoulder surgery Left 05/2008 Family History Family History Father Malignant neoplasm of prostate Other Cerebrovascular accident Diabetes mellitus Family history of arthritis Family history of cardiovascular disease Family history of kidney disease Family history of malignant neoplasm Hypertension Social History Social History (Updated 07/22/24 @ 16:53 by Giovanny Cristobal MD) Smoking packs per day: 1 Smoking cigarettes per day: 20.0 Years smoked: 57 Smoking pack-years: 57.00 Smoking status: Current every day smoker Tobacco type: cigarettes Second hand tobacco smoke exposure: No Smoking end date: 11/07/23 Additional smoking assessment comments: CURRENTLY SMOKES 10 CIGARETTES IN 5 DAYS Alcohol intake: never Substance use: never Substance use type: does not use Lack of Transportation: No Lack of Food: Never True Current Housing: I Have Housing Concerned About Future Housing: No Difficulty Paying Gas/Electric Bills: No Difficulty Paying for Meds: No Currently Unemployed: No Education: Master's Degree or Higher Difficulty w/ Childcare or Family Care: No Living arrangements: with family Spiritual care concerns: Yes Meds Home Medications and Allergies Home Medications ?Medication ?Instructions ?Recorded ?Confirmed ?Type cyclobenzaprine 10 mg tablet 10 mg PO TID PRN Spasms 07/15/19 07/22/24 History fluticasone propionate 50 2 spray intranasal DAILY 07/15/19 07/22/24 History mcg/actuation nasal spray,suspension (Flonase Allergy Relief) gabapentin 300 mg capsule 300 mg PO TID PRN Pain 07/15/19 07/22/24 History hydrochlorothiazide 25 mg tablet 25 mg PO DAILY 12/09/20 07/22/24 History aspirin 81 mg chewable tablet 81 mg PO DAILY@0800 #30 tabs 12/11/20 07/22/24 Rx (Children's Aspirin) atorvastatin 40 mg tablet 40 mg PO DAILY #30 tabs 12/11/20 07/22/24 Rx nitroglycerin 0.4 mg sublingual 0.4 mg sublingual Q5MIN PRN Chest 12/11/20 07/22/24 Rx tablet (Nitrostat) Pain #30 tabs acetaminophen 500 mg capsule 500 mg PO TID PRN Pain 04/08/21 07/22/24 History docusate sodium 100 mg capsule 100 mg PO BID PRN Constipation 04/08/21 07/22/24 History (Dulcolax Stool Softener (docusate)) ranolazine 500 mg tablet,extended 500 mg PO Q12H 08/04/21 07/22/24 History release,12 hr tamsulosin 0.4 mg capsule 0.4 mg PO DIRECTED 10/13/23 07/22/24 History hydrocodone 10 mg-acetaminophen 1 tablet PO .4-6H PRN pain #42 tabs 10/16/23 07/22/24 Rx 325 mg tablet albuterol sulfate 90 mcg/actuation 2 inh inhalation Q4-6H PRN 11/02/23 07/22/24 Rx aerosol inhaler shortness of breath or wheezing #8.5 grams oxycodone 10 mg tablet,crush 10 mg PO Q12H #20 tabs 07/09/24 07/22/24 Rx resistant,extended release 12 hr (OxyContin) oxycodone 10 mg tablet,crush 10 mg PO Q12H #60 tabs 07/11/24 07/22/24 Rx resistant,extended release 12 hr (OxyContin) tiotropium 2.5 mcg-olodaterol 2.5 See Rx Instructions .Route 07/12/24 07/22/24 Rx mcg/actuation mist for inhalation .COMPLEX #4 mL (Stiolto Respimat) lisinopril 30 mg tablet 30 mg PO DAILY #90 tabs 07/19/24 07/22/24 Rx Allergies Allergy/AdvReac Type Severity Reaction Status Date / Time morphine Allergy Intermediate Vomiting Verified 07/22/24 08:54 spironolactone Allergy Intermediate Hives Verified 07/22/24 08:54 Exam Narrative: HEENT: Pharyngeal mucosa pink and intact NECK: No JVD, adenopathy, or thyromegaly CHEST: Coarse BS, frequent apneas HEART: NL S1/S2, regular, no murmur ABDOMEN: BS+, soft, nontender, no mass, no bruits EXTREMITIES: No cyanosis, edema, or clubbing NEUROLOGIC: CN intact and symmetric to inspection MUSCULOSKELETAL: No gross deformity to visual inspection PSYCH: Unresponsive to verbal or tactile stimuli Assessment and Plan Assessment and plan (1) Hospice care: Code(s): Z51.5 - Encounter for palliative care Status: Acute Assessment and Plan: * Meet inpatient hospice criteria due to requiring continuous IV hydromorphone for control of dyspnea * P.r.n. palliative regimen ordered * 07/22/2024 discussed care prognosis with family at bedside (2) Adenocarcinoma, lung: Code(s): C34.90 - Malignant neoplasm of unspecified part of unspecified bronchus or lung Status: Acute (3) COPD (chronic obstructive pulmonary disease): Code(s): J44.9 - Chronic obstructive pulmonary disease, unspecified Status: Acute (4) Acute hypercapnic respiratory failure: Code(s): J96.02 - Acute respiratory failure with hypercapnia Status: Acute
--- OUTSIDE RECORDS SUMMARY | 2024-07-22 16:56 | XMS_ITS ---
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
--- OUTSIDE RECORDS SUMMARY | 2024-07-22 16:56 | XMS_ITS | Clinical Summary ---
Author Organization [facility] Address [address] [place] [address] Care Team Providers Care Arnp Name Role Phone MigdaliaBrant stoner DO Primary Care Provider [phone]- [phone] Source Comments [facility],non-owned Affiliates and Associated Physician Practices is amultiple site organization consisting of ambulatory clinics and hospital sitesin [place], [place], [place] and [place]. This disclosure is being madepursuant to the Care Everywhere program and may not contain all information available regarding this patient. 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 Member ID:Not on file Relation to Subscriber:Not on file Name:ANDRE NORWOOD JR. Subscriber ID:Not on file (Home) Address: [address] [place], [place] [id number] Payer ID:Not on file Group ID:Not on file Type:Self Pay Address: [place], [place] SELF PAY NO INSURANCE Member Subscriber Plan / Payer (Ef fective for All Dates) Name:Andre Norwood Jr. Member ID:Not on file Relation to Subscriber:Not on file Name:ANDRE NORWOOD Subscriber ID:Not on file (Home) Address: [address] [place], [place] [id number] Payer ID:Not on file Group ID:Not on file Type:Self Pay Address: [facility] MANAGED MEDICARE ADV SELF PAY NO INSURANCE Member Subscriber Plan / Payer (Ef fective for All Dates) Name:Guille, Andre D Jr. Member ID:Not on file Relation to Subscriber:Not on file Name:ANDRE NORWOOD Subscriber ID:Not on file (Home) Address: [address] [place] [address] Payer ID:Not on file Group ID:Not on file Type:Self Pay Address: [facility] MANAGED MEDICARE ADV SELF PAY NO INSURANCE Member Subscriber Plan / Payer (Ef fective for All Dates) Name:Andre Norwood Jr. Member ID:Not on file Relation to Subscriber:Not on file Name:ANDRE NORWOOD Subscriber ID:Not on file (Home) Address: [address] [place] [address] Payer ID:Not on file Group ID:Not on file Type:Self Pay Address: [facility] MANAGED MEDICARE ADV Care Teams Arnp Relationship Specialty Start Date End Date Brant Wei DO PCP - General Internal Medicine 03/17/10
--- OUTSIDE RECORDS SUMMARY | 2024-07-22 16:56 | XMS_ITS | Clinical Summary ---
Author Organization [facility] [address] Address [address] [place] [address] Care Team Providers Care Beer Cooler Name Role Phone Brant Wei DO Primary Care Provider [phone]- [phone] Allergies Active Allergy Reactions Criticality Noted Date [...] 12 hr tabletIndicatio ns:Coronary artery disease of [place] artery of [place] heart with stable angina pectoris TAKE 1 TABLET BY MOUTH TWICE A DAY 180 tablet 3 5 Active Active Problems Problem Noted Date Diagnosed Date Morbid (severe) obesity due to excess calories 0 09/26/2022 Infrarenal abdominal aortic aneurysm (AAA) witho ut rupture 03/28/2022 Coronary artery disease of n ative artery of [place] heart with stable angina pectoris 01/18/2021 Tobacco abuse counseling 01/18/2021 WHALEN (dyspnea on exertion) 06/15/2020 Palpitations 06/15/2020 Essential hypertension 06/15/2020 Resolved Problems Problem Noted Date Diagnosed Date Resolved Date Other chest pain 07/13/2020 01/18/2021 Encounters Date Type Department Care Team Description 06/17/2024 9:45 AM CDT Office Visit [facility] Cardiology [address] [place] [address] Acacia Reddy MD Coronary artery disease of [place] artery of [place] heart with stable angina pectoris (Primary Dx); [...] 0 AM CDT Coronary artery disease of [place] artery of [place] heart with stable angina pectoris from Last [...] Final Result from Last 3 Months Insurance [facility] MEDICARE ADVANTAGE UHC MEDICARE ADVANTAGE Care Teams Beer Cooler Relationship Specialty Start Date End Date Brant Wei DO PCP - General Internal Medicine 11/16/16
--- OUTSIDE RECORDS SUMMARY | 2024-07-22 16:56 | XMS_ITS | Clinical Summary ---
Author Organization [facility] puja [facility] Address [address] [facility] [place] [address] Care Team Providers Care Medical Payment Poster Name Role Phone Corryolena Brant Nii GERMAN [...] 1 Active fluticasone propionate (FLONASE) 50 mcg/spray [place], Suspension nasal inhaler Administer 1 [place] in each nostril daily. Active nitroglycerin (NITROSTAT) [...] 3 4 Active naloxone (NARCAN) 4 mg/spray [place], Non-Aerosol EMERGENCY USE ONLY: Administer 1 spray [...] artery disease of n ative artery of [place] heart with stable angina pectoris 01/18/2021 Essential hypertension 06/15/2020 Encounters Date Type Department Care Team Description 07/22/[address] [facility] Oncology and Hematology - [place] Deidra Nol[address] Jon Gilman MD Malignant neoplasm of lung, unspecified laterality, unspecified part of lung (CMS/HCC) 07/19/[address] [facility] Oncology and Hematology [facility] Deidra [address] [place] [id number] Jon Gilman MD Malignant neoplasm of lung, unspecified laterality, unspecified part of lung (CMS/HCC) (Primary Dx) 07/15/2024 4:00 PM CDT Telephone Check Up [facility] Oncology and Hematology [facility] Deidra [address]ol[address] [place] [address] Jon Gilman MD 07/11/[address] [facility] Oncology and Hematology [facility] Deidra Noland [address] [place] [address] Jon Gilman MD 07/08/[address] [facility] Oncology and Hematology - [place] Deidra Nol[address] [place] [address] Jon Gilman MD Malignant neoplasm of lung, unspecified laterality, unspecified part of lung (CMS/HCC) 07/05/[address] [facility] Oncology and Hematology - [place] Deidra Noland [address] [place] [address] Jon Gilman MD Need for hepatitis B screening test (Primary Dx) 07/04/2024 2:15 PM CDT Office Visit [facility] Oncology and Hematology [facility] Deidra Noland [address] Jon Gilman MD Malignant neoplasm of lung, unspecified laterality, unspecified part of lung (CMS/HCC) (Primary Dx) 07/02/2024 External Device Data ST[facility] ABSTRACTION Provider, Abstract 07/01/[address] [facility] On[facility] Hematology - [place] [address] [place] [id number] Jon Gilman MD 06/24/[address] [facility]ology - [place] [address] [place] [address] Jon Gilman MD Malignant neoplasm of lung, unspecified laterality, unspecified part of lung (CMS/HCC) 06/10/[address] [facility]ematology - [place] [address] [place] [address] Jon Gilman MD Malignant neoplasm of lung, unspecified laterality, unspecified part of lung (CMS/HCC) 05/29/2024 External Device Data STL ABSTRACTION Provider, Abstract 05/27/[address] [facility] Oncology and Hematology - [place] [address] [place] [address] Jon Gilman MD Malignant neoplasm of lung, unspecified laterality, unspecified part of lung (CMS/HCC) 05/16/[address] [facility] Oncology and Hematology - [place] Deidra [address]ol[address] [place] [address] Jon Gilman MD Malignant neoplasm of upper lobe of right lung (CMS/HCC) (Primary Dx) 05/14/2024 4:30 PM TRADE SPECIALIST Telephone Check Up [facility] and Hematology - [place] [address] [place] [address] Jon Gilman MD 05/14/2024 External Device Data STL ABSTRACTION Provider, Abstract 05/13/[address] [facility] Oncology and Hematology - [place] Deidra Noland [address] [place] [address] Jon Gilman MD Malignant neoplasm of lung, unspecified laterality, unspecified part of lung (CMS/HCC) (Primary Dx) 05/08/2024 External Device Data STL ABSTRACTION Provider, Abstract 05/08/[address] [facility] Oncology and Hematology - [place] [address] [place] [address] Jon Gilman MD 05/02/2024 External Device Data STL ABSTRACTION Provider, Abstract 04/30/[address] [facility] - [place] [address] [place] [address] Jon Gilman MD 04/29/[address] [facility]ology - [place] [address] [place] [address] Jon Gilman MD Malignant neoplasm of lung, unspecified laterality, unspecified part of lung (CMS/HCC) 04/25/2024 8:45 AM TRADE SPECIALIST Office Visit [facility] On[facility] and Hematology - [place] [address] [place] [address] Jon Gilman MD Malignant neoplasm of lung, unspecified laterality, unspecified part of lung (CMS/HCC) (Primary Dx) 04/25/[address] [facility] Oncology and [facility]ematology - [place] [address] [place] [address] Jon Gilman MD from Last 3 Months [...] 2021 INFLUENZA VACCINE (#1) 2023 Medicare [place] ([place]) Prev entative Visit/Annual Wellness Visit 04/10/2024 Medical Devices Implanted Type Area Colleter Device Identifier Shelf Expiration Date Model / Serial / Lot Clip Ligating Horizon Med Ti 316180 - Csc - [id number] Implanted:Qty : 3 on 09/26/2023 by Hu Alberts MD at [facility] Clip Right: Lung TELEFLEX- WECK CLOSURE SYS 08/30/2027 [id number] / / [id number] Clip Ligating Horizon Med Ti 338360 - Csc - [id number] Implanted:Qty : 1 on 09/26/2023 by Hu Alberts MD at [facility] Clip Right: Lung TELEFLEX- WECK CLOSURE SYS 08/30/2027 [id number] / / [id number] Clip Ligating Horizon Med Ti 766319 - Csc - [id number] Implanted:Qty : 1 on 09/26/2023 by Hu Alberts MD at [facility] Clip Right: Lung TELEFLEX- WECK CLOSURE SYS 08/30/2027 [id number] / / [id number] Agent Hemostat Surgicel 4x8in 2s - [id number] Implanted:Qty : 1 on 09/26/2023 by Hu Alberts MD at [facility] Hemostatic Right: Lung [employer] 02/08/2028 [id number] / / [id number] Sealant Progel Pleural 4ml [id number] - [id number] Implanted:Qty : 1 on 09/26/2023 by Hu Alberts MD at [facility] Tissue Right: Lung BARD DAVOL [id number] 09/14/2024 [id number] / / [id number] Procedures Procedure Name Priority Date/Time Associated Diagnosis Comments HEPATITIS B SURFACE ANTIGEN Routine 07/10/2024 11:07 AM CDT PATHOLOGY REPORT Routine 06/27/2024 10:3 2 AM CDT PET BONE IMG W CT SKL BSE MID THG Routine 05/07/2024 2:43 PM TRADE SPECIALIST CBC WITH DIFFERENTIAL Routine 04/25/2024 3:41 PM TRADE SPECIALIST BASIC METABOLIC PANEL Routine 04/24/2024 3:44 PM TRADE SPECIALIST from Last 3 Months Results * HEPATITIS B SURFACE ANTIGEN (07/10/2024 11:07 AM CDT) Blood Result [facility] us Jon Gilman MD CHEMISTRY ORDERABLES Final Resu lt * PATHOLOGY REPORT (06/27/2024 10:32 AM CDT) Result [facility] us Jon Gilman MD PATHOLOGY/CYTOLOGY ORDERABLES F inal Result * PET BONE IMG W CT SKB MDTH (05/07/2024 2:43 PM TRADE SPECIALIST) Anatomical Region Laterality Modality Positron Emissio n Tomography (PET) Result [facility] us Jon Gilman MD PE ORDERABLES Final Result * CBC WITH DIFFERENTIAL (04/25/2024 3:41 PM TRADE SPECIALIST) Blood Result [facility] Jon Gilman MD HEMATOLOGY ORDERABLES Final Res ult * BASIC METABOLIC PANEL (04/24/2024 3:44 PM TRADE SPECIALIST) Blood Result [facility] us Jon Gilman MD CHEMISTRY ORDERABLES Final Resu lt from Last 3 Months Insurance [facility] [id number] [facility] [id number] Advance Directives For more information, please contact: [phone] * Full Code (Latest Code Status on File) Date Activated Date Inactivated Comments 11/15/2023 9:41 PM 11/17/2023 3:14 PM * Full Code Date Activated Date Inactivated Comments 09/26/2023 11:16 PM 10/03/2023 4:59 PM * Full Code Date Activated Date Inactivated Comments 09/26/2023 9:44 AM 09/26/2023 11:16 PM Care Teams Medical Payment Poster Relationship Specialty Start Date End Date Brant Wei DO [address] [address] PCP - General Internal Medicine 07/18/23
--- OUTSIDE RECORDS SUMMARY | 2024-07-22 16:56 | XMS_ITS | Encounter Summary ---
Author Organization [facility] Phase III Development [facility] Address [address] [place] [address] Care Team Providers Care Sales Training Manager Name Role Phone Brant Wei Primary Care Provider Encounter Details Date Type Department Care Team (Late st Contact Info) Description 07/22/2024 Orders Only [facility] Oncology and Hematology - [place] [address] [facility] [address] [place] [address] Jon Gilman MD [address] [facility] [address] [place] [address] Malignant neoplasm of lung, unspecified [...] (CMS/HCC) documented in this encounter Care Teams Sales Training Manager Relationship Specialty Start Date End Date Brant Wei DO [address] [address] PCP - General Internal Medicine 07/18/23 documented as of this encounter
--- OUTSIDE RECORDS SUMMARY | 2024-07-22 16:56 | XMS_ITS | Referral Summary ---
Author Organization [facility] [address] [facility] [address] Address [address] [place] [address] Care Team Providers Care House Moving Supervisor Name Role Phone Brant Wei DO Primary Care Provider +1- [phone] Encounters Date Type Department Care Team Description 06/17/2024 9:45 AM CDT Office Visit [facility] Cardiology [address] [place] [address] Acacia Reddy MD Coronary artery disease of [place] artery of [place] heart with stable angina pectoris (Primary Dx); [...] 12 hr tabletIndicatio ns:Coronary artery disease of [place] artery of [place] heart with stable angina pectoris TAKE 1 TABLET BY MOUTH TWICE A DAY 180 tablet 3 5 Active Active Problems Problem Noted Date Diagnosed Date Morbid (severe) obesity due to excess calories 0 09/26/2022 Infrarenal abdominal aortic aneurysm (AAA) witho ut rupture 03/28/2022 Coronary artery disease of n ative artery of [place] heart with stable angina pectoris 01/18/2021 Tobacco [...] 0 AM CDT Coronary artery disease of [place] artery of [place] heart with stable angina pectoris from Last [...] MEDICARE ADVANTAGE UHC MEDICARE ADVANTAGE Care Teams House Moving Supervisor Relationship Specialty Start Date End Date Brant Wei DO PCP - General Internal Medicine 11/16/16
[2024-07-22] MEDS: LORazepam INJ (*CRX) 2 MG/ML VIAL 1 MG IV PUSH (18:55)
[2024-07-22 19:47] VITALS: O2SAT 78
--- NOTE | 2024-07-22 20:07 | PC.NURSE ---
upon assessment at 1999 patient has zero respirations and zero pulse noted. verified with Jamilah AVILA. family at bedside. charge nurse notified.
--- NOTE | 2024-07-23 16:52 | DS_ITS ---
This Summary was moved to the correct visit on 07/24/2024. The original report was signed by Giovanny Cristobal on 07/23/241651. Discharge Summary Probable Cause of Probable Cause of : Metastatic adenocarcinoma of lung Summary Hospital Course: Admitted to inpatient hospice service for symptom management. Medications were titrated to comfort. Mr. Han peacefully. Please be advised this is a medical document. It is intended for [id number] communication. It is written in medical language and may contain unfamiliar abbreviations or verbiage. Medical documents are intended to carry relevant information, facts as evident, and the clinical opinion of the practitioner at the time of the encounter. This report may have been done utilizing a voice recognition system. Attempts have been made to correct errors. However, there may be uncorrected grammatical, spelling, and recognition errors present. The file time of this note does not necessarily represent the time the patient was seen. Report Initialized date/time: Giovanny Cristobal MD 07/23/241651 Electronically signed by: Giovanny Cristobal MD 07/23/241651 [facility] [place] [facility]
== END 2024-07-22 22:52 | disposition expired | DRG 951 ==
PROVIDERS: Admitting Provider Internal Medicine; PCP Internal Medicine; Visit Provider Internal Medicine
DX: Z51.5 Encounter for palliative care (principal); J96.02 Acute respiratory failure with hypercapnia; C34.90 Malignant neoplasm of unspecified part of unspecified bronchus or lung; J44.9 Chronic obstructive pulmonary disease, unspecified; I10 Essential (primary) hypertension
CPT/HCPCS: A9270; J1171; J2060